=== PATIENT | female | born 1940 | race Caucasian/White ===

== ENCOUNTER → 2017-01-19 | Outpatient (CLI) | payer MEDICARE ==
--- NOTE | 2017-01-20 18:22 | Diagnostic Imaging Report ---
Bilateral screening mammogram 2D views with tomosynthesis. The current study was also evaluated with a Computer Aided Detection (CAD) system. INDICATION: Screening. No current complaints stated on the questionnaire. COMPARISON: 12/17/2015. FINDINGS: The breasts are composed of heterogeneously dense parenchyma which may decrease mammographic sensitivity. There is no mass, architectural distortion or suspicious cluster of calcification. Allowing for technique and positional differences, no suspicious change is seen. IMPRESSION: Dense breasts with no definite change. ACR BI-RADS Category 2: Benign findings. Result letter will be mailed to the patient. Note: At least 10% of breast cancer is not imaged by mammography. Dictated on workstation # [id number]
== END ==
LOC: RAD 15:37
PROVIDERS: ATTEND Family Medicine
DX: Z12.31 Encounter for screening mammogram for malignant neoplasm of breast (principal)
CPT/HCPCS: 77067

== ENCOUNTER 2017-06-14 09:58 | Inpatient (IN) | payer MEDICARE ==
[~2017-06-14] VITALS: Ht 157.5 cm; Wt 54.0 kg
[~2017-06-14 09:58] MED LIST: DULO30CA3 PO; IBAN150T PO; OXYC-197 PO; PROP20TA5 PO; PSYL3.4P5 PO; SULF1TAB35 PO
[2017-06-14 10:00] VITALS: BP 158/64
--- NOTE | 2017-06-14 11:18 | Physical Therapy Evaluation ---
PT Evaluation-General Medical Diagnosis Admission Date June 14, 2017 Medical Diagnosis: right hip fracture Onset Date: Jun 10, 2017 Therapy Diagnosis Therapy Diagnosis: impaired mobility Height/Weight Height (Feet): 5 Height (Inches): 2.00 Weight (Pounds): 120 Weight (Ounces): 0.0 Precautions Precautions/Isolations: Standard Precautions Weight Bear Status Right Lower Extremity: Right Touch Toe Bearing Left Lower Extremity: Left Full Weight Bearing Referral Physician: Juan Reason for Referral: Evaluation/Treatment Medical History Pertinent Medical History: HTN Current History Patient slipped in her garage, resulting in right proximal femur fracture. Underwent ORIF IM nail on 06/11/17. Reviewed History: Yes Social History Home: Single Level Current Living Status: Alone Entry Into Home: Stairs With Railing PT Steps Into Home: 2 Prior/Core FIM Prior Level of Function Functional [place] Measure 0=Not Assessed/NA 4=Minimal Assistance 1=Total Assistance 5=Supervision or Setup 2=Maximal Assistance 6=Modified [place] 3=Moderate Assistance 7=Complete [place] Bed Mobility: 7 Transfers (B,C,W/C) (FIM): 7 Gait: 7 Locomotion: 7 PT Evaluation-Current Subjective Patient agrees to PT. She c/o nausea and reports she is not eating and is very depressed. RN made aware. Pain Numeric Pain Scale: 5-Moderate Pain Location: Right Location Body Site: Hip Pain Description: Acute Objective Patient Orientation: Normal For Age Problem Solving: Good Attachments: Oxygen (2L), IV ROM/Strength ROM Lower Extremities right LE limited due to pain/left LE WNL Strenght Lower Extremities right knee flexion/extension 3/5; hip flexion NT; DF/PF 4/5 left knee flexion/extension 4/5; hip flexion 4/5; DF/PF 4/5 Integumentary/Posture Integumentary refer to nursing notes Bowel Incontinence: No Bladder Incontinence: No Posture normal Neuromuscular (Tone, Coordination, Reflexes) grossly intact Sensory Vision: Wears Glasses Hearing: Functional Sensation Right Lower Extremit: Intact Sensation Left Lower Extremity: Intact Transfers Functional [place] Measure 0=Not Assessed/NA 4=Minimal Assistance 1=Total Assistance 5=Supervision or Setup 2=Maximal Assistance 6=Modified [place] 3=Moderate Assistance 7=Complete IndependenceIRFPAI Quality Coding Scale 6 Independent with activity with or without an assistive device 5 Patient requires set up or clean up by helper. Patient completes activity by themselves 4 Supervision or touching assist (CGA). [place] provide cues , steadying assist 3 The helper provides less than half the effort to complete the activity 2 The helper provides more than half the effort to complete the activity 1 Dependent. The helper does all the effort to complete an activity 7 Patient refused to complete or attempt activity 9 The patient did not perform the activity before the current illness or injury 88 Not attempted due to Medical conditions or safety concerns Transfers (B, C, W/C) (FIM): 4 Scootin Rollin Roll Left to Right (QC): 4 Supine to/from Sit: 4 Sit to/from Stand: 4 Sit to Lying (QC): 4 Lying to Sitting/Side of Bed(Q: 4 Sit to Stand (QC): 4 Chair/Joi-qw-Xezwz Xfer(QC): 4 Car Transfer (QC): 4 Gait Does the Patient Walk?: Yes Mode of Locomotion: Walk Anticipated Mode of Locomotion: Walk Gait (FIM): 2 Distance (FIM): 4=112-74 ft Walk 10 feet (QC): 4 Walk 50 ft with 2 Turns(QC): 4 Walk 150 ft (QC): 88 Walking 10ft/uneven surface-QC: 4 Distance: 75' x 2 Gait Level of Assist: 4 Gait Persons Needed: 1 Gait Assistive Device: FWW Comments/Gait Description TTWB right LE with patient complying with status Stairs Stairs (FIM): 1 #of Steps: 1 Level of Assist: 4 1 Step (curb) (QC): 4 4 Steps (QC): 88 Assistive Device: Walker 12 Steps (QC): 88 Balance Sitting Static: Normal Sitting Dynamic: Normal Standing Static: Normal Standing Dynamic: Normal Picking up an Object (QC): 3 Assessment/Needs 77 y.o. female, will benefit from skilled therapy to address functional mobility and strength to ensure safe return to home at maximum LOF. Patient is currently limited by pain, TTWB right LE and depression (per patient report). Rehab Potential: Fair PT [facility] Goals [facility] Goals PT Travel Accommodations Rater Goals Time Frame: July 02, 2017 Transfers (B,C,W/C) (FIM): 6 Sit to Lying (QC): 6 Lying-Sitting on Side/Bed(QC): 6 Sit to Stand (QC): 6 Rollin Roll Left to Right (QC): 6 Chair/Qzo-vx-Kgmzx Xfer(QC): 6 Car Transfer (QC): 6 Does the Patient Walk: Yes Gait (FIM): 6 Gait distance (FIM): 3=150 ft Distance: 150' Walk 10 feet (QC): 6 Walk 10ft-Uneven Surface(QC): 6 Walk 50ft with 2 Turns (QC): 6 Walk 150 ft (QC): 6 Gait Level of Assist: 6 Gait Assistive Device: FWW Stairs (FIM): 6 # of Steps: 12 1 Step (curb) (QC): 6 4 Steps (QC): 6 12 Steps (QC): 6 Stairs Level Of Assist: 6 Picking up an Object (QC): 6 PT Plan Problem List Problem List: Activity Tolerance, Functional Strength, Gait, Bed Mobility Treatment/Plan Treatment Plan: Continue Plan of Care Treatment Plan: Bed Mobility, Concurrent Therapy, Education, Functional Activity Antione, Functional Strength, Group Therapy, Gait, Safety, Therapeutic Exercise, Transfers Treatment Duration: July 02, 2017 Frequency: At least 5 of 7 days/Wk (IRF) Estimated Hrs Per Day: 1.5 hours per day Patient and/or Family Agrees t: Yes Time/GCodes Time In: 1000 Time Out: 1020 Total Billed Treatment Time: 20 Total Billed Treatment 1 visit EVModC 20 min LISSETTE COBB PT Jun 14, 2017 11:18
--- NOTE | 2017-06-14 11:27 | Physical Therapy Daily Note ---
PT Daily Note-Current Subjective Patient reluctantly agrees to PT. Patient continues to c/o nausea and is very tearful. Pain Numeric Pain Scale: 5-Moderate Pain Location: Right Location Body Site: Hip Pain Description: Acute Mental Status Patient Orientation: Normal For Age Transfers Functional [place] Measure 0=Not Assessed/NA 4=Minimal Assistance 1=Total Assistance 5=Supervision or Setup 2=Maximal Assistance 6=Modified [place] 3=Moderate Assistance 7=Complete IndependenceIRFPAI Quality Coding Scale 6 Independent with activity with or without an assistive device 5 Patient requires set up or clean up by helper. Patient completes activity by themselves 4 Supervision or touching assist (CGA). [place] provide cues , steadying assist 3 The helper provides less than half the effort to complete the activity 2 The helper provides more than half the effort to complete the activity 1 Dependent. The helper does all the effort to complete an activity 7 Patient refused to complete or attempt activity 9 The patient did not perform the activity before the current illness or injury 88 Not attempted due to Medical conditions or safety concerns Transfers (B, C, W/C) (FIM): 4 Scootin Rollin Roll Left to Right (QC): 4 Supine to/from Sit: 4 Sit to/from Stand: 4 Sit to Lying (QC): 4 Sit to Stand (QC): 4 Chair/Bra-nv-Ocnwm Xfer(QC): 4 Bed to/from Chair: 4 Weight Bearing Right Lower Extremity: Right Touch Toe Bearing Left Lower Extremity: Left Full Weight Bearing Gait Training Does the Patient Walk?: Yes Gait (FIM): 2 Distance (FIM): 6=477-97 ft Distance: 75' x 3 Walk 10 feet (QC): 4 Walk 50 ft with 2 Turns(QC): 4 Walking 10ft/uneven surface-QC: 4 Gait Level of Assist: 4 Gait Assistive Device: FWW slow, TTWB right LE, antalgic Exercises Supine Ex: Ankle pumps, Quad Set, Glut sets, Heel Slides, Straight leg raise Supine Reps: 15 (AAROM right LE/2 sets bilaterally) Seated Therapy Exercises: Ankle pumps, Long arc quads Seated Reps: 20 (2 sets) Standin way Ex=Flex, Abd, Ext (right LE only) Standing Reps: 20 (2 sets) Assessment Patient continues to c/o nausea and is tearful. Per RN report, patient will begin medication for depression on this date. PT Order Dispatcher Goals [facility] Goals PT [facility] Goals Time Frame: July 02, 2017 Transfers (B,C,W/C) (FIM): 6 Sit to Lying (QC): 6 Lying-Sitting on Side/Bed(QC): 6 Sit to Stand (QC): 6 Rollin Roll Left to Right (QC): 6 Chair/Hlc-wp-Xoxbd Xfer(QC): 6 Car Transfer (QC): 6 Does the Patient Walk: Yes Gait (FIM): 6 Gait distance (FIM): 3=150 ft Distance: 150' Walk 10 feet (QC): 6 Walk 10ft-Uneven Surface(QC): 6 Walk 50ft with 2 Turns (QC): 6 Walk 150 ft (QC): 6 Gait Level of Assist: 6 Gait Assistive Device: FWW Stairs (FIM): 6 # of Steps: 12 1 Step (curb) (QC): 6 4 Steps (QC): 6 12 Steps (QC): 6 Stairs Level Of Assist: 6 Picking up an Object (QC): 6 PT Plan Treatment/Plan Treatment Plan: Continue Plan of Care Treatment Plan: Bed Mobility, Concurrent Therapy, Education, Functional Activity Antione, Functional Strength, Group Therapy, Gait, Safety, Therapeutic Exercise, Transfers Treatment Duration: July 02, 2017 Frequency: At least 5 of 7 days/Wk (IRF) Estimated Hrs Per Day: 1.5 hours per day Patient and/or Family Agrees t: Yes Time/GCodes Time In: 1035 Time Out: 1115 Total Billed Treatment Time: 40 Total Billed Treatment 1 visit GT 15 min EX x 2 25 min LISSETTE COBB PT Jun 14, 2017 11:27
[2017-06-14] MEDS ORDERED: PROMETHAZINE INJ 25 MG/ML (PHENERGAN) AMP IVP PRN (11:30)
--- NOTE | 2017-06-14 11:40 | ST Cognitive Linguistic Eval ---
Speech Evaluation-General Medical Diagnosis Right Hip Fracture Onset Date: Jun 10, 2017 Therapy Diagnosis Therapy Diagnosis: Cognitive Linguistic Skills WNL Precautions Precautions/Isolations: Standard Precautions Referral Referring Physician: Dr. Gunnar Martinez Reason for Referral: Evaluation/Treatment Cognitive Evaluation Medical History Pertinent Medical History: HTN Reviewed History: Yes Social History Current Living Status: Alone Speech PLF-Current Status Prior Level of Function The patient denied prior challenges with speech, language, or cognition. Subjective The patient was seated upright in a chair upon greeting. The patient greeted the clinician appropriately and was agreeable to participation in the cognitive evaluation. Language Eval: Auditory Comprehends Simple Yes/No Ques: Functional Indent/Objects Multiple Foley: Functional Ident/Pics in Multiple Foley: Functional Follows 1-Step Commands: Functional Follows Complex Directions: Functional Follows General Conversations: Functional Language Eval: Verbal Language Completes Spontaneous Greeting: Functional Produces Auto, Serial Info: Functional Imitates Simple Words/Phrases: Functional Word Finding: Functional Requests Basic Needs: Functional States Basic Personal Info: Functional Expresses Complex Ideas: Functional Cognitive Patient Orientation The patient was independently oriented to self, location, month, day of week, and month (independently). Objective Cognitive Domain Attention: WNL Memory: WNL Problem Solving: Functional Objective Impression The patient demonstrated cognitive linguistic skills within normal limits and appropriate for completion of ADL's. Communication/Social Cognition Comprehension: 6 (Glasses) Expression: 7 Social Interaction: 5 (Encouragement necessary for participation; Patient takes anti-depressant.) Problem Solvin Memory: 7 Speech Patient Assess Expression of Ideas/Wants: Expression (4) Understanding [place] Content: Understands (4) Brief Interview-Mental Status: Yes Repetition of Three Words: Three (3) Temporal Orientation: Year: Correct (3) Temporal Orientation: Month: Accurate within 5 days(2) Temporal Orientation: Day: Correct (1) Recall : Wear to say "Sock": Yes, no cue required (2) Recall : Color: Yes, no cue required (2) Recall : Bed: Yes, no cue required (2) Speech-Plan Treatment Plan Speech Therapy Treatment Plan: Discontinue ST Evaluation, only. No ST warranted. Frequency: Modified Program (IRF) (No ST warranted.) Estimated Hrs Per Day: Other (No ST warranted.) Rehab Potential: Fair Safety Risks/Education Teaching Recipient: Patient Teaching Methods: Discussion Response to Teaching: Verbalize Understanding Education Topics Provided: Results, Recommendations, Plan of Care Time Speech Therapy Time In: 10:20 Speech Therapy Time Out: 10:35 Total Billed Time: 15 Billed Treatment Time 1, HASEEB AKHTAR Jun 14, 2017 11:40
--- OUTSIDE RECORDS SUMMARY | 2017-06-14 12:46 | XMS REPORT | Continuity of Care Document ---
Author Author [facility] Organization [facility] Address Unknown Phone Unavailable Allergies Active Description Code Type Severity Reaction Onset Reported/Identified Relationship to Patient Clinical Status Yes No Allergy Information Available [id number] Drug Allergy Unknown N/A 2012 Yes Penicillins [id number] Drug Allergy Unknown N/A 07/06/2014 Medications There is no data. Problems Date Dx Coded Attending Type Code Diagnosis Diagnosed By 05/20/2012 Ot 211.3 BENIGN NEOPLASM LG BOWEL 05/20/2012 Ot 562.10 DIVERTICULOSIS COLON (W/O MENT OF HEMORR 05/20/2012 Ot V76.51 SCREEN MAL NEOP-COLON 03/01/2014 Ot 611.72 03/01/2014 Ot V76.12 03/01/2014 Ot 611.72 03/01/2014 Ot V76.12 03/01/2014 Ot V76.12 03/01/2014 Ot 348.89 03/01/2014 Ot 780.93 03/01/2014 Ot 794.09 03/01/2014 Ot 496 03/01/2014 Ot 722.52 03/01/2014 Ot 737.30 03/01/2014 Ot V72.84 03/01/2014 BILLIE CARR MD Ot V76.12 03/01/2014 EDDIE ERWIN DC Ot 722.52 03/01/2014 BILLIE CARR MD Ot V76.12 03/20/2014 Ot 611.72 03/20/2014 Ot V76.12 03/20/2014 Ot 611.72 03/20/2014 Ot V76.12 03/20/2014 Ot V76.12 03/20/2014 Ot 348.89 03/20/2014 Ot 780.93 03/20/2014 Ot 794.09 03/20/2014 Ot 496 03/20/2014 Ot 722.52 03/20/2014 Ot 737.30 03/20/2014 Ot V72.84 03/20/2014 LILLY VARGAS, BILLIE White Ot V76.12 03/20/2014 EDDIE ERWIN DC Ot 722.52 03/20/2014 LILLY VARGAS, BILLIE M Ot V76.12 03/20/2014 LILLY VARGAS, BILLIE Cindy Ot 719.45 03/23/2014 LILLY VARGAS, BILLIE White Ot 719.45 03/29/2014 ALEX VARGAS, SUSAN Cook Ot 726.2 03/29/2014 ALEX VARGAS, SUSAN Cook Ot V57.1 04/02/2014 LILLY VARGAS, BILLIE White Ot 719.45 05/17/2014 SUSAN JOHNSON MD Ot 726.2 SHOULDER REGION DIS NEC 05/17/2014 SUSAN JOHNSON MD Ot V57.1 PHYSICAL THERAPY NEC 06/20/2014 Ot 611.72 06/20/2014 Ot V76.12 06/20/2014 Ot 611.72 06/20/2014 Ot V76.12 06/20/2014 Ot V76.12 06/20/2014 Ot 348.89 06/20/2014 Ot 780.93 06/20/2014 Ot 794.09 06/20/2014 Ot 496 06/20/2014 Ot 722.52 06/20/2014 Ot 737.30 06/20/2014 Ot V72.84 06/20/2014 LILLY VARGAS, BILLIE White Ot V76.12 06/20/2014 EDDIE ERWIN DC Ot 722.52 06/20/2014 LILLY VARGAS, BILLIE White Ot V76.12 06/20/2014 LILLY VARGAS, BILLIE White Ot 719.45 07/06/2014 BELIA VARGAS, MALIKA Hamilton Ot 287.5 07/06/2014 BELIA VARGAS, MALIKA Hamilton Ot 288.50 07/06/2014 BELIA VARGAS, MALIKA Hamilton Ot 790.5 07/06/2014 BELIA VARGAS, MALIKA Hamilton Ot 287.5 07/06/2014 BELIA VARGAS, MALIKA Hamilton Ot 288.50 07/06/2014 BELIA VARGAS, MALIKA Hamilton Ot 790.5 07/06/2014 BELIA VARGAS, MALIKA Hamilton Ot 287.5 07/06/2014 BELIA VARGAS, MALIKA Hamilton Ot 288.50 07/06/2014 BELIA VARGAS, MALIKA A Ot 790.5 07/06/2014 BELIA VARGAS, MALIKA Hamilton Ot 287.5 07/06/2014 BELIA VARGAS, MALIKA Hamilton Ot 288.50 07/06/2014 BELIA VARGAS, MALIKA A Ot 790.5 07/09/2014 BELIA VARGAS, MALIKA Hamilton Ot 287.5 07/09/2014 BELIA VARGAS, MALIKA A Ot 288.50 07/09/2014 BELIA VARGAS, MALIKA Hamilton Ot 790.5 07/13/2014 KRISTIN RODRIGUEZ [employer]AREHOUSE INSULATION WORKER Ot 719.07 JOINT EFFUSION-ANKLE 07/13/2014 KRISTIN RODRIGUEZ [employer]HOUSE INSULATION WORKER Ot 729.81 SWELLING OF LIMB 07/14/2014 BELIA VARGAS, MALIKA Hamilton Ot 276.8 07/14/2014 BELIA VARGAS, MALIKA Hamilton Ot 787.03 07/14/2014 BELIA VARGAS, MALIKA Hamilton Ot 790.5 07/14/2014 BELIA VARGAS, MALIKA Hamilton Ot V01.79 07/21/2014 YAIMAEDDIE BAH DC Ot 719.45 08/02/2014 JUAN DANIEL JAQUEZ CORRESPONDENCE SECTION SUPERVISOR Ot 276.8 08/02/2014 JUAN DANIEL JAQUEZ CORRESPONDENCE SECTION SUPERVISOR Ot 790.5 08/03/2014 BELIA VARGAS, MALIKA Hamilton Ot 287.5 08/03/2014 BELIA VARGAS, MALIKA A Ot 288.50 08/03/2014 BELIA VARGAS, MALIKA A Ot 790.5 08/08/2014 BELIA VARGAS, MALIKA Hamilton Ot 287.5 08/08/2014 BELIA VARGAS, MALIKA Hamilton Ot 288.50 08/08/2014 BELIA VARGAS, MALIKA A Ot 790.5 08/10/2014 YAIMAEDDIE BAH DC Ot 719.45 08/16/2014 BELIA VARGAS, MALIKA Hamilton Ot 790.5 10/02/2014 BELIA VARGAS, MALIKA Hamilton Ot 276.8 10/02/2014 BELIA VARGAS, MALIKA Hamilton Ot 787.03 10/02/2014 BELIA VARGAS, MALIKA A Ot 790.5 10/02/2014 BELIA VARGAS, MALIKA Hamilton Ot V01.79 10/04/2014 BELIA VARGAS, MALIKA Hamilton Ot 276.8 HYPOPOTASSEMIA 10/04/2014 BELIA VARGAS, MALIKA A Ot 787.03 VOMITING ALONE 10/04/2014 MALIKA CELAYA MD Ot 790.5 ABN SERUM ENZY LEVEL NEC 10/04/2014 MALIKA CELAYA MD Ot V01.79 CONTACT OR EXPOSURE TO OTHER VIRAL DISEA 11/14/2014 JUAN DANIEL JAQUEZ CORRESPONDENCE SECTION SUPERVISOR Ot V76.12 06/20/2015 Ot V76.12 OTH SCREEN MAMMO-MALIGN NEOPLASM OF ALFONSO 06/20/2015 Ot V76.12 OTH SCREEN MAMMO-MALIGN NEOPLASM OF ALFONSO 06/20/2015 Ot 348.89 OTHER CONDITIONS OF BRAIN 06/20/2015 Ot 780.93 MEMORY LOSS 06/20/2015 Ot 794.09 ABN BOULEVARD GLASSWARE REPLACER FUNCT STUDY NEC 06/20/2015 Ot 496 CHR AIRWAY OBSTRUCT NEC 06/20/2015 Ot 722.52 LUMB/ LUMBOSAC DISC DEGEN 06/20/2015 Ot 737.30 IDIOPATHIC SCOLIOSIS 06/20/2015 Ot V72.84 EXAM PRE- OPERATIVE NOS 06/20/2015 BILLIE CARR MD Ot V76.12 OTH SCREEN MAMMO-MALIGN NEOPLASM OF ALFONSO 06/20/2015 YAIMAOLVIN WOOD, EDDIE Salinas Ot 722.52 LUMB/LUMBOSAC DISC DEGEN 06/20/2015 BILLIE CARR MD Ot V76.12 OTH SCREEN MAMMO-MALIGN NEOPLASM OF ALFONSO 06/20/2015 BILLIE CARR MD Ot 719.45 JOINT PAIN-PELVIS 06/20/2015 YAIMA WOOD, EDDIE [place]inas Ot 719.45 JOINT PAIN-PELVIS 06/20/2015 MALIKA CELAYA MD Ot 287.5 THROMBOCYTOPENIA NOS 06/20/2015 MALIKA CELAYA MD Ot 288.50 LEUKOCYTOPENIA, UNSPECIFIED 06/20/2015 MALIKA CELAYA MD Ot 790.5 ABN SERUM ENZY LEVEL NEC 06/20/2015 JUAN DANIEL JAQUEZ CORRESPONDENCE SECTION SUPERVISOR Ot 276.8 HYPOPOTASSEMIA 06/20/2015 JUAN DANIEL JAQUEZ CORRESPONDENCE SECTION SUPERVISOR Ot 790.5 ABN SERUM ENZY LEVEL NEC 06/20/2015 MALIKA CELAYA MD Ot 790.5 ABN SERUM ENZY LEVEL NEC 06/20/2015 MALIKA CELAYA MD Ot 276.8 HYPOPOTASSEMIA 06/20/2015 BELIA MD, MALIKA A Ot 787.03 VOMITING ALONE 06/20/2015 MALIKA CELAYA MD Ot 790.5 ABN SERUM ENZY LEVEL NEC 06/20/2015 MALIKA CELAYA MD Ot V01.79 CONTACT OR EXPOSURE TO OTHER VIRAL DISEA 06/20/2015 JUAN DANIEL JAQUEZ CORRESPONDENCE SECTION SUPERVISOR Ot V76.12 OTH SCREEN MAMMO-MALIGN NEOPLASM OF ALFONSO 07/11/2015 LAYLA VARNER W[employer]HOUSE INSULATION WORKER Ot R68.84 JAW PAIN 07/23/2015 LAYLA VARNER W[employer]HOUSE INSULATION WORKER Ot R68.84 JAW PAIN 12/17/2015 MALIKA CELAYA MD A Ot Z12.31 ENCNTR SCREEN MAMMOGRAM FOR MALIGNANT NE 12/18/2015 MALIKA CELAYA MD Ot Z12.31 ENCNTR SCREEN MAMMOGRAM FOR MALIGNANT NE 12/26/2015 MALIKA CELAYA MD Ot Z12.31 ENCNTR SCREEN MAMMOGRAM FOR MALIGNANT NE 01/19/2016 MALIKA CELAYA MD Ot 287.5 THROMBOCYTOPENIA NOS 01/19/2016 MALKIA CELAYA MD Ot 288.50 LEUKOCYTOPENIA, UNSPECIFIED 01/19/2016 MALIKA CELAYA MD Ot 790.5 ABN SERUM ENZY LEVEL NEC 01/12/2017 MALIKA CELAYA MD Ot Z12.31 ENCNTR SCREEN MAMMOGRAM FOR MALIGNANT NE 01/20/2017 MALIKA CELAYA MD Ot Z12.31 ENCNTR SCREEN MAMMOGRAM FOR MALIGNANT NE 02/09/2017 MALIKA CELAYA MD Ot Z12.31 ENCNTR SCREEN MAMMOGRAM FOR MALIGNANT NE 06/10/2017 MALIKA CELAYA MD Ot Z12.31 ENCNTR SCREEN MAMMOGRAM FOR MALIGNANT NE 06/10/2017 MALIKA CELAYA MD Ot Z12.31 ENCNTR SCREEN MAMMOGRAM FOR MALIGNANT NE Procedures There is no data. Results Test Result Range Complete blood count (CBC) with automated white blood cell (WBC) differential - 06/10/17 19:01 Blood leukocytes automated count (number/volume) 7.1 10*3/uL 4.3-11.0 Blood erythrocytes automated count (number/volume) 3.84 10*6/uL 4.35-5.85 Venous blood hemoglobin measurement (mass/volume) 11.8 g/dL 11.5-16.0 Blood hematocrit (volume fraction) 34 % 35-52 Automated erythrocyte mean corpuscular volume 89 [foz_us] 80-99 Automated erythrocyte mean corpuscular hemoglobin (mass per erythrocyte) 31 pg 25-34 Automated erythrocyte mean corpuscular hemoglobin concentration measurement ( mass/volume) 35 g/dL 32-36 Automated erythrocyte distribution width ratio 12.8 % 10.0-14.5 Automated blood platelet count (count/volume) 196 10*3/uL 130-400 Automated blood platelet mean volume measurement 10.8 [foz_us] 7.4-10.4 Automated blood neutrophils/100 leukocytes 77 % 42-75 Automated blood lymphocytes/100 leukocytes 14 % 12-44 Blood monocytes/100 leukocytes 7 % 0-12 Automated blood eosinophils/100 leukocytes 2 % 0-10 Automated blood basophils/100 leukocytes 0 % 0-10 Blood neutrophils automated count (number/volume) 5.5 10*3 1.8-7.8 Blood lymphocytes automated count (number/volume) 1.0 10*3 1.0-4.0 Blood monocytes automated count (number/volume) 0.5 10*3 0.0-1.0 Automated eosinophil count 0.1 10*3/uL 0.0-0.3 Automated blood basophil count (count/volume) 0.0 10*3/uL 0.0-0.1 PT panel in platelet poor plasma by coagulation assay - 06/10/17 19:01 Prothrombin time (PT) in platelet poor plasma by coagulation assay 12.9 s 12.2-14.7 INR in platelet poor plasma or blood by coagulation assay 1.0 0.8-1.4 Activated partial thromboplastin time (aPTT) in platelet poor plasma bycoagulation assay - 06/10/17 19:01 Activated partial thromboplastin time (aPTT) in platelet poor plasma bycoagulation assay 30 s 24-35 Comprehensive metabolic panel - 06/10/17 19:01 Serum or plasma sodium measurement (moles/volume) 139 mmol/L 135-145 Serum or plasma potassium measurement (moles/volume) 3.8 mmol/L 3.6-5.0 Serum or plasma chloride measurement (moles/volume) 105 mmol/L 98-107 Carbon dioxide 25 mmol/L 21-32 Serum or plasma anion gap determination (moles/volume) 9 mmol/L 5-14 Serum or plasma urea nitrogen measurement (mass/volume) 27 mg/dL 7-18 Serum or plasma creatinine measurement (mass/volume) 0.82 mg/dL 0.60-1.30 Serum or plasma urea nitrogen/creatinine mass ratio 33 NRG Serum or plasma creatinine measurement with calculation of estimated glomerular filtration rate > NRG Serum or plasma glucose measurement (mass/volume) 110 mg/dL 70-105 Serum or plasma calcium measurement (mass/volume) 9.5 mg/dL 8.5-10.1 Serum or plasma total bilirubin measurement (mass/volume) 0.3 mg/dL 0.1-1.0 Serum or plasma alkaline phosphatase measurement (enzymatic activity/volume) 43 U/L 40-136 Serum or plasma aspartate aminotransferase measurement (enzymatic activity/ volume) 26 U/L 5-34 Serum or plasma alanine aminotransferase measurement (enzymatic activity/volume ) 19 U/L 0-55 Serum or plasma protein measurement (mass/volume) 6.6 g/dL 6.4-8.2 Serum or plasma albumin measurement (mass/volume) 4.1 g/dL 3.2-4.5 Complete urinalysis with reflex to culture - 06/10/17 20:12 Urine color determination YELLOW NRG Urine clarity determination CLEAR NRG Urine pH measurement by test strip 5 5-9 Specific gravity of urine by test strip 1.025 1.016- 1.022 Urine protein assay by test strip, semi-quantitative NEGATIVE NEGATIVE Urine glucose detection by automated test strip NEGATIVE NEGATIVE Erythrocytes detection in urine sediment by light microscopy 1+ NEGATIVE Urine ketones detection by automated test strip 1+ NEGATIVE Urine nitrite detection by test strip POSITIVE NEGATIVE Urine total bilirubin detection by test strip NEGATIVE NEGATIVE Urine urobilinogen measurement by automated test strip (mass/volume) NORMAL NORMAL Urine leukocyte esterase detection by dipstick 1+ NEGATIVE Automated urine sediment erythrocyte count by microscopy (number/high power field) [HPF] NRG Automated urine sediment leukocyte count by microscopy (number/high power field ) [HPF] NRG Bacteria detection in urine sediment by light microscopy MODERATE NRG Crystals detection in urine sediment by light microscopy NONE NRG Casts detection in urine sediment by light microscopy NONE NRG Mucus detection in urine sediment by light microscopy NEGATIVE NRG Complete urinalysis with reflex to culture YES NRG Bacterial urine culture - 06/10/17 20:12 Bacterial urine culture [id number] NRG COLONY COUNT >100,000/ML NRG FTX;REPORTABLE SENSITIVITY REPORTED 06/11 15:20 NRG Bacterial susceptibility panel - 06/10/17 20:12 Gentamicin susceptibility test by minimum inhibitory concentration < = NRG Trimethoprim/sulfamethoxazole susceptibility test by minimum inhibitoryconcentration S NRG Ampicillin susceptibility test by minimum inhibitory concentration 4 NRG Tobramycin susceptibility test by minimum inhibitory concentration < = NRG Cefazolin susceptibility test by minimum inhibitory concentration < = NRG Ceftriaxone susceptibility test by minimum inhibitory concentration <= NRG Ampicillin/sulbactam susceptibility test by minimum inhibitory concentration S NRG Piperacillin/tazobactam susceptibility test by minimum inhibitory concentration S NRG Ciprofloxacin susceptibility test by minimum inhibitory concentration <= NRG Meropenem susceptibility test by minimum inhibitory concentration < = NRG Nitrofurantoin susceptibility test by minimum inhibitory concentration <= NRG Aztreonam susceptibility test by minimum inhibitory concentration < = NRG Extended spectrum beta lactamase (ESBL) producing bacteria susceptibility test by minimum inhibitory concentration - NRG Blood type T Indirect antibody screen panel - 06/10/17 21:03 ABO+Rh group AP NRG Transfusion band number [id number] NRG Blood group antibody screen POSITIVE NRG Blood group antibodies identified - 06/10/17 21:03 Blood group antibodies identified K NRG Methicillin resistant Staphylococcus aureus (MRSA) screening culture - 04:15 Methicillin resistant Staphylococcus aureus (MRSA) screening culture NEG NRG Automated blood complete blood count (hemogram) panel - 06/12/17 06:11 Blood leukocytes automated count (number/volume) 9.6 10*3/uL 4.3-11.0 Blood erythrocytes automated count (number/volume) 3.17 10*6/uL 4.35-5.85 Venous blood hemoglobin measurement (mass/volume) 9.7 g/dL 11.5-16.0 Blood hematocrit (volume fraction) 29 % 35-52 Automated erythrocyte mean corpuscular volume 93 [foz_us] 80-99 Automated erythrocyte mean corpuscular hemoglobin (mass per erythrocyte) 31 pg 25-34 Automated erythrocyte mean corpuscular hemoglobin concentration measurement ( mass/volume) 33 g/dL 32-36 Automated erythrocyte distribution width ratio 12.8 % 10.0-14.5 Automated blood platelet count (count/volume) 148 10*3/uL 130-400 Automated blood platelet mean volume measurement 11.1 [foz_us] 7.4-10.4 Comprehensive metabolic panel - 06/12/17 06:11 Serum or plasma sodium measurement (moles/volume) 138 mmol/L 135-145 Serum or plasma potassium measurement (moles/volume) 3.7 mmol/L 3.6-5.0 Serum or plasma chloride measurement (moles/volume) 104 mmol/L 98-107 Carbon dioxide 28 mmol/L 21-32 Serum or plasma anion gap determination (moles/volume) 6 mmol/L 5-14 Serum or plasma urea nitrogen measurement (mass/volume) 10 mg/dL 7-18 Serum or plasma creatinine measurement (mass/volume) 0.66 mg/dL 0.60-1.30 Serum or plasma urea nitrogen/creatinine mass ratio 15 NRG Serum or plasma creatinine measurement with calculation of estimated glomerular filtration rate > NRG Serum or plasma glucose measurement (mass/volume) 113 mg/dL 70-105 Serum or plasma calcium measurement (mass/volume) 8.5 mg/dL 8.5-10.1 Serum or plasma total bilirubin measurement (mass/volume) 0.5 mg/dL 0.1-1.0 Serum or plasma alkaline phosphatase measurement (enzymatic activity/volume) 40 U/L 40-136 Serum or plasma aspartate aminotransferase measurement (enzymatic activity/ volume) 23 U/L 5-34 Serum or plasma alanine aminotransferase measurement (enzymatic activity/volume ) 14 U/L 0-55 Serum or plasma protein measurement (mass/volume) 5.6 g/dL 6.4-8.2 Serum or plasma albumin measurement (mass/volume) 3.4 g/dL 3.2-4.5 Automated blood complete blood count (hemogram) panel - 06/13/17 05:19 Blood leukocytes automated count (number/volume) 6.7 10*3/uL 4.3-11.0 Blood erythrocytes automated count (number/volume) 2.85 10*6/uL 4.35-5.85 Venous blood hemoglobin measurement (mass/volume) 9.0 g/dL 11.5-16.0 Blood hematocrit (volume fraction) 28 % 35-52 Automated erythrocyte mean corpuscular volume 97 [foz_us] 80-99 Automated erythrocyte mean corpuscular hemoglobin (mass per erythrocyte) 32 pg 25-34 Automated erythrocyte mean corpuscular hemoglobin concentration measurement ( mass/volume) 33 g/dL 32-36 Automated erythrocyte distribution width ratio 13.0 % 10.0-14.5 Automated blood platelet count (count/volume) 114 10*3/uL 130-400 Automated blood platelet mean volume measurement 10.9 [foz_us] 7.4-10.4 Automated blood complete blood count (hemogram) panel - 06/14/17 05:40 Blood leukocytes automated count (number/volume) 5.9 10*3/uL 4.3-11.0 Blood erythrocytes automated count (number/volume) 2.89 10*6/uL 4.35-5.85 Venous blood hemoglobin measurement (mass/volume) 8.9 g/dL 11.5-16.0 Blood hematocrit (volume fraction) 27 % 35-52 Automated erythrocyte mean corpuscular volume 94 [foz_us] 80-99 Automated erythrocyte mean corpuscular hemoglobin (mass per erythrocyte) 31 pg 25-34 Automated erythrocyte mean corpuscular hemoglobin concentration measurement ( mass/volume) 33 g/dL 32-36 Automated erythrocyte distribution width ratio 12.6 % 10.0-14.5 Automated blood platelet count (count/volume) 142 10*3/uL 130-400 Automated blood platelet mean volume measurement 10.9 [foz_us] 7.4-10.4 Comprehensive metabolic panel - 06/14/17 05:40 Serum or plasma sodium measurement (moles/volume) 138 mmol/L 135-145 Serum or plasma potassium measurement (moles/volume) 3.4 mmol/L 3.6-5.0 Serum or plasma chloride measurement (moles/volume) 101 mmol/L 98-107 Carbon dioxide 29 mmol/L 21-32 Serum or plasma anion gap determination (moles/volume) 8 mmol/L 5-14 Serum or plasma urea nitrogen measurement (mass/volume) 11 mg/dL 7-18 Serum or plasma creatinine measurement (mass/volume) 0.63 mg/dL 0.60-1.30 Serum or plasma urea nitrogen/creatinine mass ratio 17 NRG Serum or plasma creatinine measurement with calculation of estimated glomerular filtration rate > NRG Serum or plasma glucose measurement (mass/volume) 91 mg/dL 70-105 Serum or plasma calcium measurement (mass/volume) 8.2 mg/dL 8.5-10.1 Serum or plasma total bilirubin measurement (mass/volume) 0.6 mg/dL 0.1-1.0 Serum or plasma alkaline phosphatase measurement (enzymatic activity/volume) 45 U/L 40-136 Serum or plasma aspartate aminotransferase measurement (enzymatic activity/ volume) 20 U/L 5-34 Serum or plasma alanine aminotransferase measurement (enzymatic activity/volume ) 13 U/L 0-55 Serum or plasma protein measurement (mass/volume) 5.3 g/dL 6.4-8.2 Serum or plasma albumin measurement (mass/volume) 3.1 g/dL 3.2-4.5 Encounters ACCT No. Visit Date/Time Discharge Status Pt. Type Provider Facility Loc./Unit Complaint [id number] 01/19/2017 15:37:00 01/19/2017 23:59:59 CLS Outpatient MALIKA CELAYA MD [facility] RAD SCREENING [id number] 12/17/2015 14:24:00 12/17/2015 23:59:59 CLS Outpatient MALIKA CELAYA MD [facility] RAD SCREENING [id number] 06/20/2015 18:02:00 06/20/2015 23:59:59 CLS Outpatient LAYLA VARNER APRN [facility] RAD [id number] 10/25/2014 15:35:00 10/25/2014 23:59:59 CLS Outpatient JUAN DANIEL JAQUEZ [facility] RAD [id number] 10/05/2014 00:11:00 10/05/2014 23:59:59 CLS Preadmit MALIKA CELAYA MD [facility] SURG RCR [id number] 07/06/2014 17:48:00 10/04/2014 00:01:00 DIS Outpatient MALIKA CELAYA MD [facility] SURG RCR [id number] 07/13/2014 16:55:00 07/13/2014 19:23:00 DIS Emergency KRISTIN RODRIGUEZ APRN [facility] ER [id number] 07/12/2014 16:40:00 07/12/2014 23:59:59 CLS Outpatient MALIKA CELAYA MD [facility] LAB [id number] 07/09/2014 08:29:00 07/09/2014 23:59:59 CLS Outpatient JUAN DANIEL JAQUEZ [facility] LAB [id number] 07/06/2014 08:45:00 07/06/2014 23:59:59 CLS Outpatient MALIKA CELAYA MD [facility] LAB DECREASED WBC PLATELETS, ELEVATED LIVER ENZYMES [id number] 06/20/2014 16:29:00 06/20/2014 23:59:59 CLS Outpatient EDDIE ERWIN DC [facility] RAD [id number] 05/09/2014 16:30:00 05/17/2014 09:51:00 DIS Outpatient SUSAN JOHNSON MD [facility] REHAB [id number] 03/01/2014 13:44:00 03/01/2014 23:59:59 CLS Outpatient BILLIE CARR MD [facility] RAD [id number] 08/29/2013 15:36:00 08/29/2013 23:59:59 CLS Outpatient BILLIE CARR MD [facility] RAD [id number] 06/14/2013 17:12:00 06/14/2013 23:59:59 CLS Outpatient EDDIE ERWIN DC [facility] RAD [id number] 08/15/2012 15:31:00 08/15/2012 23:59:59 CLS Outpatient BILLIE CARR MD [facility] RAD [id number] 06/14/2017 11:28:00 Document Registration [id number] 06/10/2017 20:53:00 ACT Inpatient MALIKA CELAYA MD [facility] 4TH RIGHT HIP FX, UTI [id number] 05/20/2012 08:39:00 Document Registration [id number] 05/18/2012 08:02:00 Document Registration [id number] 05/05/2012 16:17:00 Document Registration [id number] 01/21/2012 16:12:00 Document Registration [id number] 10/22/2011 14:49:00 Document Registration [id number] 10/21/2011 10:10:00 Document Registration [id number] 07/30/2011 11:13:00 Document Registration [id number] 06/27/2010 11:01:00 Document Registration [id number] 06/12/2009 10:43:00 Document Registration [id number] 06/06/2009 11:08:00 Document Registration
[2017-06-14] MEDS ORDERED: CATHETER FLUSH 10 ML SYR IV PRN (13:30)
--- NOTE | 2017-06-14 13:31 | Physical Therapy Daily Note ---
PT Daily Note-Current Subjective Patient agrees to PT. Pain Numeric Pain Scale: 0-No Pain Location: No Pain Reported Mental Status Patient Orientation: Normal For Age Attachments: Oxygen Transfers Functional Hope Measure 0=Not Assessed/NA 4=Minimal Assistance 1=Total Assistance 5=Supervision or Setup 2=Maximal Assistance 6=Modified Hope 3=Moderate Assistance 7=Complete IndependenceIRFPAI Quality Coding Scale 6 Independent with activity with or without an assistive device 5 Patient requires set up or clean up by helper. Patient completes activity by themselves 4 Supervision or touching assist (CGA). [place] provide cues , steadying assist 3 The helper provides less than half the effort to complete the activity 2 The helper provides more than half the effort to complete the activity 1 Dependent. The helper does all the effort to complete an activity 7 Patient refused to complete or attempt activity 9 The patient did not perform the activity before the current illness or injury 88 Not attempted due to Medical conditions or safety concerns Transfers (B, C, W/C) (FIM): 4 Scootin Sit to/from Stand: 4 Sit to Stand (QC): 4 Weight Bearing Right Lower Extremity: Right Touch Toe Bearing Left Lower Extremity: Left Full Weight Bearing Gait Training Does the Patient Walk?: Yes Gait (FIM): 2 Distance (FIM): 8=653-45 ft Distance: 100' x 2 Walk 10 feet (QC): 4 Walk 50 ft with 2 Turns(QC): 4 Gait Level of Assist: 4 Gait Assistive Device: FWW slow, steady gait sequence Exercises Seated Therapy Exercises: Ankle pumps, Long arc quads Seated Reps: 20 NuStep Minutes: 10 NuStep Workload: 3 Assessment Patient in better spirits this p.m. PT to increase activity as tolerated by patient. PT Halfway Goals Halfway Goals PT Halfway Goals Time Frame: July 02, 2017 Transfers (B,C,W/C) (FIM): 6 Sit to Lying (QC): 6 Lying-Sitting on Side/Bed(QC): 6 Sit to Stand (QC): 6 Rollin Roll Left to Right (QC): 6 Chair/Uaw-xu-Oimne Xfer(QC): 6 Car Transfer (QC): 6 Does the Patient Walk: Yes Gait (FIM): 6 Gait distance (FIM): 3=150 ft Distance: 150' Walk 10 feet (QC): 6 Walk 10ft-Uneven Surface(QC): 6 Walk 50ft with 2 Turns (QC): 6 Walk 150 ft (QC): 6 Gait Level of Assist: 6 Gait Assistive Device: FWW Stairs (FIM): 6 # of Steps: 12 1 Step (curb) (QC): 6 4 Steps (QC): 6 12 Steps (QC): 6 Stairs Level Of Assist: 6 Picking up an Object (QC): 6 PT Plan Treatment/Plan Treatment Plan: Continue Plan of Care Treatment Plan: Bed Mobility, Concurrent Therapy, Education, Functional Activity Antione, Functional Strength, Group Therapy, Gait, Safety, Therapeutic Exercise, Transfers Treatment Duration: July 02, 2017 Frequency: At least 5 of 7 days/Wk (IRF) Estimated Hrs Per Day: 1.5 hours per day Patient and/or Family Agrees t: Yes Time/GCodes Time In: 1240 Time Out: 1310 Total Billed Treatment Time: 30 Total Billed Treatment 1 visit EX 17 min GT13 min LISSETTE COBB PT Jun 14, 2017 13:31
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
[2017-06-14] MEDS: ONDANSETRON 4 MG/2 ML (SDV) Z0FRAN IVP PRN ×2 (14:14→21:52)
--- NOTE | 2017-06-14 14:21 | Occupational Ther Daily Note ---
OT Current Status-Daily Note Subjective Pt finishing up with PT. Pt agreed to therapy. Pt c/o pain and nausea, reported to nrsg. Mental Status/Objective Patient Orientation: Person, Place, Time, Situation Functional [place] Measure 0=Not Assessed/NA 4=Minimal Assistance 1=Total Assistance 5=Supervision or Setup 2=Maximal Assistance 6=Modified [place] 3=Moderate Assistance 7=Complete [place] ADL-Treatment Functional [place] Measure 0=Not Assessed/NA 4=Minimal Assistance 1=Total Assistance 5=Supervision or Setup 2=Maximal Assistance 6=Modified [place] 3=Moderate Assistance 7=Complete IndependenceIRFPAI Quality Coding Scale 6 Independent with activity with or without an assistive device 5 Patient requires set up or clean up by helper. Patient completes activity by themselves 4 Supervision or touching assist (CGA). [place] provide cues , steadying assist 3 The helper provides less than half the effort to complete the activity 2 The helper provides more than half the effort to complete the activity 1 Dependent. The helper does all the effort to complete an activity 7 Patient refused to complete or attempt activity 9 The patient did not perform the activity before the current illness or injury 88 Not attempted due to Medical conditions or safety concerns Grooming (FIM): 5 (Standing at sink with FWW, pt was able to complete grooming with SBA.) Oral Hygiene (QC): 4 Bathing (FIM): 4 (Using shower bench, grabbar and hand held shower pt was able to wash all areas except lower legs.) Bathing Location: L Arm, R Arm, L Upper Leg, R Upper Leg, Chest, Abdomen, Buttocks, Perineal Area Shower/Bathe Self (QC): 4 Upper Body (FIM): 5 (After set up, pt able to complete upper body dressing.) Upper Body Dressing (QC): 5 Lower Body Dressing (FIM): 3 (After set up, pt required mod A for lower body dressing. Pt able to don/doff pants with SBA in standing. Assist to don/doff socks and shoes.) Lower Body Dressing (QC): 3 On/Off Footwear (QC): 2 Toileting (FIM): 5 (Per PT report. Pt is SBA for toileting using FWW and grabbars. Pt stated that she had rails/BSC at home.) Toileting Hygiene (QC): 4 Transfers (B, C, W/C) (FIM): 5 (SBA using FWW.) Toilet/Commode Transfer (FIM): 5 (Per PT report. Pt is SBA using FWW. PT put BSC over toilet, pt stated that she had rails/BSC over toilet at home.) Toilet Transfer (QC): 4 Shower Transfer(FIM): 4 (Using shower bench, grabbar and FWW pt is able to complete shower transfer. Pt stated that she typically takes a bath at home. Steps into tub, no grabbars.) Sock aide and dressing stick given to pt. PEREZ educated pt on equipment, pt stated that she had used them before on a previous L partial hip replacement. Pt verbalized understanding. Other Treatment Pt given light resistance theraband and was shown 3 exercises to complete. Pt c /o nausea and pain, declined completing exercises. After therapy, pt lying in bed with call light/phone in reach. All needs met in room. Education OT Patient Education: Exercise program, Modified ADL techniques, Rehab process , Transfer techniques, Use of adapted equipment Teaching Recipient: Patient Teaching Methods: Demonstration, Discussion Response to Teaching: Verbalize Understanding, Reinforcement Needed OT Short Term Goals Short Term Goals Time Frame: Jun 21, 2017 Toileting(FIM): 5 Toilet/Commode Transfer(FIM): 5 Additional Short Term Goals: 1-Demonstrate ADL Tasks, 2-Verbalize Understanding , 3-ImproveStrength/Antione 1=Demonstrate adherence to instructed precautions during ADL tasks. 2=Patient will verbalize/demonstrate understanding of assistive devices/ modifications for ADL. 3=Patient will improve strength/tolerance for activity to enable patient to perform ADL's. OT Retirement Goals [employer] Goals Time Frame: July 05, 2017 Eating (FIM): 7 Eating (QC): 6 Groomin Oral Hygiene (QC): 6 Bathing(FIM): 6 Shower/Bathe Self (QC): 6 Upper Body Dressing(FIM): 6 Upper Body Dressing (QC): 6 Lower Body Dressing(FIM): 6 Lower Body Dressing (QC): 6 On/Off Footwear (QC): 6 Toileting(FIM): 6 Toileting Hygiene (QC): 6 Toilet/Commode Transfer(FIM): 6 Toilet/Commode Transfer (QC): 6 Tub Transfer(FIM): 6 (Or shower) Shower Transfer(FIM): 6 (Or tub) Additional Goals: 1-Demonstrate ADL Tasks, 2-Verbalize Understanding, 3- ImproveStrength/Antione 1=Demonstrate adherence to instructed precautions during ADL tasks. 2=Patient will verbalize/demonstrate understanding of assistive devices/ modifications for ADL. 3=Patient will improve strength/tolerance for activity to enable patient to perform ADL's. OT Education/Plan Problem List/Assessment Pt would benefit from skilled OT to increase her independence in basic self care to allow her to safely be discharged to her home Discharge Recommendations Plan/Recommendations: Continue POC Treatment Plan/Plan of Care Patient would benefit from OT for education, treatment and training to promote independence in ADL's, mobility, safety and/or upper extremity function for ADL' s. Plan of Care: ADL Retraining, Functional Mobility, Group Exercise/Act as Ind ( education, exercise, functional activities, socialization, activity tolerance), UE Funct Exercise/Act, UE Neuromus Re-Ed/Coord Treatment Duration: July 05, 2017 Frequency: At least 5 of 7 days/Wk (IRF) Estimated Hrs Per Day: 1.5 hours per day Agreement: Yes Rehab Potential: Fair Time/GCodes Start Time: 13:10 Stop Time: 14:10 Total Time Billed (hr/min): 60 Billed Treatment Time 1 visit-ADL 3 (50 min) EX 1 (10 min) RED LUCERO Jun 14, 2017 14:21
[2017-06-14] MEDS: DULoxetine 30 MG (CYMBALTA) CAP PO SCH (14:30)
[2017-06-14] MEDS: CATHETER FLUSH 10 ML SYR IV SCH ×2 (14:31→21:25)
[2017-06-14] MEDS: LACTOBACILLUS Acidoph/Bulgar (LACTINEX/FLORANEX) TAB PO SCH (16:11)
[2017-06-14] MEDS: TRIM/SULFAMETH 160/800 (SEPTRA DS) TAB PO SCH (16:46)
[2017-06-14 17:19] VITALS: BP 141/63
[2017-06-14] MEDS: ACETAMINOPHEN 325 MG TABLET/CAPLET (TYLENOL) PO PRN (18:52)
--- NOTE | 2017-06-14 19:19 | PM&R Post Admission Assessment ---
Post Admission Physician Asses Date seen by provider: Jun 14, 2017 Time seen by provider: 19:00 Admisison Dx: (1) Intertrochanteric fracture of right femur Status: Acute The preadmission screen agrees with the post admission assessment that the patient is a good candidate for inpatient rehabilitation. The patient will have a comprehensive program of inpatient rehabilitation with a goal of maximizing level of functional independence prior to discharge home with [facility]. The patient will have PT/OT ninety minutes per day, each discipline , five days a week for 14 days for gait, strengthening, conditioning, balance, ADLs, any patient/family/caregiver training as necessary. Speech therapy to do cognitive assessment and treat as indicated. Rehabilitation nursing to assist with bowel, bladder, skin, wound care, medication administration, pain management. Import/Export Specialist to assist with discharge planning, community reentry. SCD's and Lovenox Sub CUT for DVT prophylaxis. She appears to be well motivated to participate in three hours of therapy a day. She should be able to tolerate three hours of therapy a day from a medical and surgical standpoint. She should benefit from the three hours of therapy a day. She has a reasonable discharge plan, reasonable discharge rehabilitation goals and a supportive family. She has various comorbidities that need to be closely monitored with medications and treatments adjusted on a daily basis as needed. These include: UTI HTN Depression Barriers to discharge for this patient who had been independent prior to this are for her to be modified independent to supervision for ADLs and mobility skills at the W/C level of function due to TTWB RLE prior to discharge home with [facility], so as to lessen the burden of the caregivers. Risks for this patient include: 1. Fall 2. Fracture 3. DVT 4. Pulmonary embolism 5. Wound infection 6. Skin breakdown 7. Contractures 8. Poorly controlled pain 9. Urinary retention 10. Recurrent UTI 11. Respiratory infection 12. Aspiration 13. Poorly controlled HTN Estimated Length of Stay: 14 days Prognosis: Rehab prognosis appears good for goal of discharge home with [facility] modified independent to supervision for ADLs and mobility skills. at the W/C level of function due to the TTWB restriction RLE [facility] CODE 08.11 Etiologic DX Comminuted intertrochanteric fracture of the Rt HIP General: Alert, Oriented X3, Cooperative, No Acute Distress HEENT: Atraumatic, PERRLA, EOMI, Mucous Memb Moist/[place] Neck: Supple, No JVD Lungs: Clear to Auscultation Heart: Regular Rate Abdomen: Normal Bowel Sounds, Soft, No Tenderness Extremities: No Edema Neuro: Other (Strength impaired at rt hip due to recent fracture and repair) TARIQ HYDE MD Jun 14, 2017 19:19
--- NOTE | 2017-06-14 19:39 | HISTORY AND PHYSICAL ---
DATE OF SERVICE: 06/14/2017 CHIEF COMPLAINT: Difficulty walking. HISTORY OF PRESENT ILLNESS: The patient is a 77-year-old female, who fell at home with resulting intertrochanteric fracture of the right hip. She had a right hip ORIF at [facility]. Therapies began. She was felt to be appropriate for inpatient rehabilitation unit. She had been independent prior to this. She does have a prior history of fall with left hip fracture, status post repair, but did not always use her walker. She is single and retired from [employer]. PCP is Dr. Oleary. Currently, she requires assistance for ADLs and mobility skills.She is min assist for transfers and gait with Walker She is set up for eating and grooming Min assist for Upper body dressing and mod assist for lower body dressing PAST MEDICAL HISTORY: Falls, hypertension, osteoporosis, IBS without diarrhea, depression, osteoarthritis, E. coli, UTI. PAST SURGICAL HISTORY: Left hip repair as per above. ALLERGIES: PENICILLIN. FAMILY HISTORY: Noncontributory. SOCIAL HISTORY: Essentially as per above. REVIEW OF SYSTEMS: A 10 point review of systems significant for falls, right hip pain. MEDICATIONS: 1. Lovenox 40 mg subcutaneously daily for DVT prophylaxis. 2. Pepcid 20 mg p.o. daily. 3. Metamucil 5.8 grams p.o. b.i.d. 4. Bactrim-DS 1 tablet p.o. b.i.d. with meals. 5. Lactinex one tablet p.o. a.c. 6. Percocet generic 5/325 one to two tablet p.o. q.4 hours p.r.n. moderate to severe pain. 7. Propranolol 20 mg p.o. q.6 hours p.r.n. tachycardia. 8. Tylenol 650 mg p.o. q.4 hours p.r.n. mild pain or fever. 9. Zofran 4 mg q.4 hours p.r.n. nausea and vomiting. 10. Cymbalta 30 mg p.o. daily. PHYSICAL EXAMINATION: GENERAL: Significant for a thin female appearing her stated age, lying in bed in no acute distress. She is concerned about her heart racing, it is not currently racing. She is reassured. VITAL SIGNS: She is afebrile, pulse is 97, respirations 18, blood pressure 141/63, O2 sat 98% on room air. HEENT: Vision, speech, hearing grossly intact. No oral lesion is noted. NECK: Supple without mass. HEART: Regular rhythm. CHEST: Clear. ABDOMEN: Soft, nontender, bowel sounds present. EXTREMITIES: No limb edema. No calf tenderness. MUSCULOSKELETAL: The patient has functional active range of motion and strength in both upper limbs. NEUROLOGIC: Strength, right knee flexion and extension 3/5, hip flexion not tested. Dorsiflexion 4/5. Left knee flexion and extension 4/5, hip flexion 4/5, dorsiflexion 4/5. Sensation is grossly intact to touch. Cognition intact. IMPRESSION: 1. Ambulatory dysfunction secondary to fall with resulting right intertrochanteric fracture of the right hip, status post left hip open reduction and internal fixation. Toe touch weightbearing, right lower extremity. 2. Urinary tract infection, under treatment. 3. Depression, on medication. 4. Hypertension, controlled with medication. 5. Deep vein thrombosis prophylaxis, on Lovenox subcutaneously. 6.DNR status PLAN: The patient will have a comprehensive program of inpatient rehabilitation with the goal of maximizing the level of functional independence prior to discharge home with home health care. The patient will have PT, OT 90 minutes per day, 5 days a week for 14 days. Please see post-admission physician evaluation, which is a separate document for details of plan of care. Speech therapy to do cognitive assessment and treat as indicated. Rehabilitation nursing assist with bowel, bladder, skin care, medication administration, pain management. career services representative to assist with discharge planning, community reentry. Follow up with Dr. Oleary and Dr. Agrawal as per their schedule. ESTIMATED LENGTH OF STAY: 14 days. PROGNOSIS: Rehab prognosis appears good for goal of discharging home with home health care, modified independent to supervision for ADLs and mobility skills. We will need to focus on the wheelchair level of function due to her touchdown weightbearing status, right lower extremity. DIET: Regular. CODE STATUS: DNR. Job ID: [id number] DocumentID: [id number] Dictated Date: 06/14/2017 19:12:07 Parking Lot Supervisor Date: 06/14/2017 19:38:50 Dictated By: TARIQ HYDE MD [facility]
[2017-06-14] MEDS: PSYLLIUM POWDER (METAMUCIL) 5.8 GM PACKET PO SCH (21:25)
[2017-06-14] MEDS ORDERED: ONDANSETRON 4 MG (ZOFRAN) ORAL DISSOLVE TAB PO PRN (22:00)
[2017-06-14] MEDS ORDERED: PROMETHAZINE 25 MG (PHENERGAN) TAB PO PRN (22:00)
[2017-06-14] MEDS ORDERED: ONDANSETRON 4 MG (ZOFRAN) ORAL DISSOLVE TAB ONE (22:01)
[2017-06-15 05:06] VITALS: BP 128/62
[2017-06-15] MEDS: FAMOTIDINE 20 MG (PEPCID) TABLET PO SCH (06:53)
[2017-06-15] MEDS: PROPRANOLOL 20 MG (INDERAL) TABLET PO PRN ×2 (06:53→20:40)
[2017-06-15] MEDS: TRIM/SULFAMETH 160/800 (SEPTRA DS) TAB PO SCH (06:54)
[2017-06-15] MEDS: LACTOBACILLUS Acidoph/Bulgar (LACTINEX/FLORANEX) TAB PO SCH ×3 (06:54→16:23)
[2017-06-15] MEDS: CATHETER FLUSH 10 ML SYR IV SCH (06:55)
--- NOTE | 2017-06-15 08:18 | PM & R (SOAP) Progress Note ---
Subjective This was a face to face visit with the patient. Date Seen by Provider: Jun 15, 2017 Time Seen by Provider: 08:00 Subjective/Events-last exam Patient was seen in her room this AM Discussed with RN Patient with some nausea which patient relates to antibiotic for UTI Improved with zofran Patient requets DNR status.Patient Mod assist for transfers TTWB RLE Review of Systems Gastrointestinal: Nausea Musculoskeletal: leg pain Objective Physician Exam Last Set of Vital Signs Vital Signs Date Time Temp Pulse Resp B/P (MAP) Pulse Ox O2 Delivery O2 Flow Rate FiO2 06/15/17 05:06 96.7 78 18 128/62 (84) 97 06/14/17 10:50 Room Air Capillary Refill : Less Than 3 Seconds I&O Intake and Output 06/15/17 00:00 Intake Total 850 ml Balance 850 ml Intake Oral 850 ml # Voids 4 # Bowel Movements 1 Daily Weight Change No General: Alert, Oriented X3, Cooperative, No Acute Distress HEENT: Atraumatic, PERRLA, EOMI, Mucous Memb Moist/[place] Neck: Supple, No JVD Lungs: Clear to Auscultation Heart: Regular Rate Abdomen: Normal Bowel Sounds, Soft, No Tenderness Extremities: No Edema Neuro: Other (Strength impaired at rt hip due to recent fracture and repair) Assessment/Plan Assessment and Plan RT Femur fracture s/p Pinning ortho TTWB RLE UTI on antibiotic Nausea related to above improved with Zofran DNR status Plan Continue PT/OT/Pain management Complete course of antibiotic for UTI Treat nausea symptomatically Document DNR status-See orders F/U with Ortho and PCP prn Team Conference tomorrow (1) Intertrochanteric fracture of right femur Qualifiers: Status: Acute Co-Morbidities that are continuing to impact the rehab process: (include details ) as per above TARIQ HYDE MD Jun 15, 2017 8:18 am
[2017-06-15] MEDS: PSYLLIUM POWDER (METAMUCIL) 5.8 GM PACKET PO SCH ×2 (08:32→20:39)
[2017-06-15] MEDS: DULoxetine 30 MG (CYMBALTA) CAP PO SCH (08:32)
[2017-06-15] MEDS: ENOXAPARIN 40 MG/0.4 ML (LOVENOX) SYR SC SCH (08:33)
[2017-06-15] MEDS: CIPROFLOXACIN 500 MG (CIPRO) TABLET PO SCH ×2 (10:56→23:08)
--- NOTE | 2017-06-15 11:06 | Occupational Ther Daily Note ---
OT Current Status-Daily Note Subjective Pt resting in bed, agrees to therapy. Pt has no reports of pain at rest, but states 8/10 right hip pain with activity. Mental Status/Objective Functional [place] Measure 0=Not Assessed/NA 4=Minimal Assistance 1=Total Assistance 5=Supervision or Setup 2=Maximal Assistance 6=Modified [place] 3=Moderate Assistance 7=Complete [place] ADL-Treatment Pt declined a shower, but would like a sponge bath this morning. Supine to sit with supervision. Gait to restroom with FWW, cues for TTWB right LE. Sponge bath completed seated at sink. Upper body bathing completed with set up. Pt able to wash bilateral upper legs and samy area with SBA. Stood with CGA to wash buttocks. Pt declined to remove GIGI hose to wash lower legs and feet. Don bra and pullover shirt with set up. Pt used dressing stick to start pants over feet. Stood with CGA for balance during pant hike. Pt doffed socks with SBA using dressing stick. Donned clean socks with SBA using sock aid. Pt states she already completed grooming tasks this morning. Transfer to [facility] over toilet with supervision. Pt completed toileting with CGA for balance during clothing management. Functional [place] Measure 0=Not Assessed/NA 4=Minimal Assistance 1=Total Assistance 5=Supervision or Setup 2=Maximal Assistance 6=Modified [place] 3=Moderate Assistance 7=Complete IndependenceIRFPAI Quality Coding Scale 6 Independent with activity with or without an assistive device 5 Patient requires set up or clean up by helper. Patient completes activity by themselves 4 Supervision or touching assist (CGA). [place] provide cues , steadying assist 3 The helper provides less than half the effort to complete the activity 2 The helper provides more than half the effort to complete the activity 1 Dependent. The helper does all the effort to complete an activity 7 Patient refused to complete or attempt activity 9 The patient did not perform the activity before the current illness or injury 88 Not attempted due to Medical conditions or safety concerns Upper Body (FIM): 5 Upper Body Dressing (QC): 5 Lower Body Dressing (FIM): 4 Lower Body Dressing (QC): 4 On/Off Footwear (QC): 5 Toileting (FIM): 4 Toileting Hygiene (QC): 4 Toilet/Commode Transfer (FIM): 5 Toilet Transfer (QC): 4 Other Treatment Pt completed bilateral UE exercises to increase strength needed for ADLs and transfers. Pt performed shoulder flexion, abduction, biceps curls, and triceps extension exercises x15 reps with minimal resistance (yellow) theraband. Brief rest breaks between exercises. Pt completed putty activity with bilateral hands to increase strength and manipulation skills. Pt able to remove small beads from moderate resistance putty without difficulty. Pt sitting in chair with needs met after session. OT Short Term Goals Short Term Goals Time Frame: Jun 21, 2017 Toileting(FIM): 5 Toilet/Commode Transfer(FIM): 5 Additional Short Term Goals: 1-Demonstrate ADL Tasks, 2-Verbalize Understanding , 3-ImproveStrength/Antione 1=Demonstrate adherence to instructed precautions during ADL tasks. 2=Patient will verbalize/demonstrate understanding of assistive devices/ modifications for ADL. 3=Patient will improve strength/tolerance for activity to enable patient to perform ADL's. OT [facility] Goals Senior Manufacturing Test Engineer Goals Time Frame: July 05, 2017 Eating (FIM): 7 Eating (QC): 6 Groomin Oral Hygiene (QC): 6 Bathing(FIM): 6 Shower/Bathe Self (QC): 6 Upper Body Dressing(FIM): 6 Upper Body Dressing (QC): 6 Lower Body Dressing(FIM): 6 Lower Body Dressing (QC): 6 On/Off Footwear (QC): 6 Toileting(FIM): 6 Toileting Hygiene (QC): 6 Toilet/Commode Transfer(FIM): 6 Toilet/Commode Transfer (QC): 6 Tub Transfer(FIM): 6 (Or shower) Shower Transfer(FIM): 6 (Or tub) Additional Goals: 1-Demonstrate ADL Tasks, 2-Verbalize Understanding, 3- ImproveStrength/Antione 1=Demonstrate adherence to instructed precautions during ADL tasks. 2=Patient will verbalize/demonstrate understanding of assistive devices/ modifications for ADL. 3=Patient will improve strength/tolerance for activity to enable patient to perform ADL's. OT Education/Plan Discharge Recommendations Plan/Recommendations: Continue POC Treatment Plan/Plan of Care Patient would benefit from OT for education, treatment and training to promote independence in ADL's, mobility, safety and/or upper extremity function for ADL' s. Plan of Care: ADL Retraining, Functional Mobility, Group Exercise/Act as Ind ( education, exercise, functional activities, socialization, activity tolerance), UE Funct Exercise/Act, UE Neuromus Re-Ed/Coord Treatment Duration: July 05, 2017 Frequency: At least 5 of 7 days/Wk (IRF) Estimated Hrs Per Day: 1.5 hours per day Agreement: Yes Rehab Potential: Fair Time/GCodes Start Time: 08:00 Stop Time: 09:00 Total Time Billed (hr/min): 60 Billed Treatment Time 1 visit, ADLx2(35minutes), EXx2(25minutes) LISA WISE OT Jun 15, 2017 11:06
--- NOTE | 2017-06-15 11:28 | Physical Therapy Daily Note ---
PT Daily Note-Current Subjective Pt sitting in recliner, upon arrival. Pt agrees to PT tx. Pt states, "I need my IV back in because I just can't drink and I don't want to get dehydrated. I can' t take pill antibiotics, I need them in the IV." Nursing notified. Pain Numeric Pain Scale: 8 Location: Right Location Body Site: Hip Pain Description: Stabbing Comment: Pt gives conflicting reports of pain during tx Mental Status Patient Orientation: Person, Place, Time, Situation Transfers Functional [place] Measure 0=Not Assessed/NA 4=Minimal Assistance 1=Total Assistance 5=Supervision or Setup 2=Maximal Assistance 6=Modified [place] 3=Moderate Assistance 7=Complete IndependenceIRFPAI Quality Coding Scale 6 Independent with activity with or without an assistive device 5 Patient requires set up or clean up by helper. Patient completes activity by themselves 4 Supervision or touching assist (CGA). [place] provide cues , steadying assist 3 The helper provides less than half the effort to complete the activity 2 The helper provides more than half the effort to complete the activity 1 Dependent. The helper does all the effort to complete an activity 7 Patient refused to complete or attempt activity 9 The patient did not perform the activity before the current illness or injury 88 Not attempted due to Medical conditions or safety concerns Transfers (B, C, W/C) (FIM): 4 Scootin Rollin Supine to/from Sit: 5 Sit to/from Stand: 4 Weight Bearing Right Lower Extremity: Right Touch Toe Bearing Left Lower Extremity: Left Full Weight Bearing Gait Training Does the Patient Walk?: Yes Gait (FIM): 4 Distance (FIM): 3=150 ft Distance: 175' Gait Level of Assist: 4 Gait Persons Needed: 1 Gait Assistive Device: FWW Exercises Supine Ex: Ankle pumps, Quad Set, Glut sets, Heel Slides, Short Arc Quads, Hip abd/add Supine Reps: 15 Seated Therapy Exercises: Ankle pumps, Long arc quads, Hip flexion Seated Reps: 15 Standing: Hamstring curls (R LE only ), 3 way Ex=Flex, Abd, Ext (R LE only ), Marching (R LE only ) Treatments Pt transfers w/ CGA to standing. Pt ambulates to Therapy Gym and completes Seated EX and Supine EX on the mat. Pt completes Standing EX at the //bars. Pt returns to room to rest in bed w/ all needs met including call light in hand, tray by beside and bucket in hand, at end of tx. Assessment Current Status: Good Progress Pt c/o of and requires frequent rest break d/t nausea. Pt states pain is 8/10, but facial expression conflicts the rating. PT Retirement Goals [place] Goals PT Retirement Goals Time Frame: July 02, 2017 Transfers (B,C,W/C) (FIM): 6 Sit to Lying (QC): 6 Lying-Sitting on Side/Bed(QC): 6 Sit to Stand (QC): 6 Rollin Roll Left to Right (QC): 6 Chair/[place] Xfer(QC): 6 Car Transfer (QC): 6 Does the Patient Walk: Yes Gait (FIM): 6 Gait distance (FIM): 3=150 ft Distance: 150' Walk 10 feet (QC): 6 Walk 10ft-Uneven Surface(QC): 6 Walk 50ft with 2 Turns (QC): 6 Walk 150 ft (QC): 6 Gait Level of Assist: 6 Gait Assistive Device: FWW Stairs (FIM): 6 # of Steps: 12 1 Step (curb) (QC): 6 4 Steps (QC): 6 12 Steps (QC): 6 Stairs Level Of Assist: 6 Picking up an Object (QC): 6 PT Plan Problem List Problem List: Activity Tolerance, Functional Strength, Safety, Gait, Transfer, Bed Mobility Treatment/Plan Treatment Plan: Continue Plan of Care Treatment Plan: Bed Mobility, Concurrent Therapy, Education, Functional Activity Antione, Functional Strength, Group Therapy, Gait, Safety, Therapeutic Exercise, Transfers Treatment Duration: July 02, 2017 Frequency: At least 5 of 7 days/Wk (IRF) Estimated Hrs Per Day: 1.5 hours per day Patient and/or Family Agrees t: Yes Safety Risks/Education Patient Education: Gait Training, Transfer Techniques, Correct Positioning, Disease Process, Safety Issues Teaching Recipient: Patient Teaching Methods: Demonstration, Discussion Response to Teaching: Verbalize Understanding, Reinforcement Needed Time/GCodes Time In: 0900 Time Out: 1000 Total Billed Treatment Time: 60 Total Billed Treatment 1, GT (15m), EX x2 (30m), FA (15m) G Codes Necessary: ZHANE Wong PUTTIER Jun 15, 2017 11:28
--- NOTE | 2017-06-15 13:01 | Occupational Ther Daily Note ---
OT Current Status-Daily Note Subjective Attempted therapy at 1045 and pt refused secondary to nausea, stating "I'm not going to do anything." RN was notified. Went back at 1150 and pt agreed to therapy with much encouragement. Pt states nausea is better than earlier. Mental Status/Objective Functional [place] Measure 0=Not Assessed/NA 4=Minimal Assistance 1=Total Assistance 5=Supervision or Setup 2=Maximal Assistance 6=Modified [place] 3=Moderate Assistance 7=Complete [place] ADL-Treatment Pt on way to restroom when therapist arrives. Pt had LOB, requiring assist to correct. Cues for walker use. Pt completed toileting with CGA for balance during clothing management. Stood at sink to wash hands with SBA. Functional [place] Measure 0=Not Assessed/NA 4=Minimal Assistance 1=Total Assistance 5=Supervision or Setup 2=Maximal Assistance 6=Modified [place] 3=Moderate Assistance 7=Complete IndependenceIRFPAI Quality Coding Scale 6 Independent with activity with or without an assistive device 5 Patient requires set up or clean up by helper. Patient completes activity by themselves 4 Supervision or touching assist (CGA). [place] provide cues , steadying assist 3 The helper provides less than half the effort to complete the activity 2 The helper provides more than half the effort to complete the activity 1 Dependent. The helper does all the effort to complete an activity 7 Patient refused to complete or attempt activity 9 The patient did not perform the activity before the current illness or injury 88 Not attempted due to Medical conditions or safety concerns Toileting (FIM): 4 Toileting Hygiene (QC): 4 Other Treatment Gait to therapy gym with FWW, cues for TTWB right LE, slow pace. Arm bike [id number] to increase overall strength and activity tolerance needed for functional tasks. Pt completed activity with minimal resistance and slow pace. No rest breaks needed. Graded clothespins activity with bilateral hands to increase auditing manager/pinch strength. Pt completed task with slow pace. Pt returned to room, sit to supine with SBA. Pt resting in bed with needs met after session. OT Short Term Goals Short Term Goals Time Frame: Jun 21, 2017 Toileting(FIM): 5 Toilet/Commode Transfer(FIM): 5 Additional Short Term Goals: 1-Demonstrate ADL Tasks, 2-Verbalize Understanding , 3-ImproveStrength/Antione 1=Demonstrate adherence to instructed precautions during ADL tasks. 2=Patient will verbalize/demonstrate understanding of assistive devices/ modifications for ADL. 3=Patient will improve strength/tolerance for activity to enable patient to perform ADL's. OT [facility] Goals Metal Drill Press Operator Goals Time Frame: July 05, 2017 Eating (FIM): 7 Eating (QC): 6 Groomin Oral Hygiene (QC): 6 Bathing(FIM): 6 Shower/Bathe Self (QC): 6 Upper Body Dressing(FIM): 6 Upper Body Dressing (QC): 6 Lower Body Dressing(FIM): 6 Lower Body Dressing (QC): 6 On/Off Footwear (QC): 6 Toileting(FIM): 6 Toileting Hygiene (QC): 6 Toilet/Commode Transfer(FIM): 6 Toilet/Commode Transfer (QC): 6 Tub Transfer(FIM): 6 (Or shower) Shower Transfer(FIM): 6 (Or tub) Additional Goals: 1-Demonstrate ADL Tasks, 2-Verbalize Understanding, 3- ImproveStrength/Antione 1=Demonstrate adherence to instructed precautions during ADL tasks. 2=Patient will verbalize/demonstrate understanding of assistive devices/ modifications for ADL. 3=Patient will improve strength/tolerance for activity to enable patient to perform ADL's. OT Education/Plan Discharge Recommendations Plan/Recommendations: Continue POC Treatment Plan/Plan of Care Patient would benefit from OT for education, treatment and training to promote independence in ADL's, mobility, safety and/or upper extremity function for ADL' s. Plan of Care: ADL Retraining, Functional Mobility, Group Exercise/Act as Ind ( education, exercise, functional activities, socialization, activity tolerance), UE Funct Exercise/Act, UE Neuromus Re-Ed/Coord Treatment Duration: July 05, 2017 Frequency: At least 5 of 7 days/Wk (IRF) Estimated Hrs Per Day: 1.5 hours per day Agreement: Yes Rehab Potential: Fair Time/GCodes Start Time: 11:50 Stop Time: 12:20 Total Time Billed (hr/min): 30 Billed Treatment Time 1 visit, ADL(10minutes), EX(20minutes) LISA WISE OT Jun 15, 2017 13:01
--- NOTE | 2017-06-15 14:21 | Physical Therapy Daily Note ---
PT Daily Note-Current Subjective Pt laying Supine in bed upon arrival. Pt agrees to PT. Pain Location: No Pain Reported Mental Status Patient Orientation: Person, Place, Time, Situation Transfers Functional [place] Measure 0=Not Assessed/NA 4=Minimal Assistance 1=Total Assistance 5=Supervision or Setup 2=Maximal Assistance 6=Modified [place] 3=Moderate Assistance 7=Complete IndependenceIRFPAI Quality Coding Scale 6 Independent with activity with or without an assistive device 5 Patient requires set up or clean up by helper. Patient completes activity by themselves 4 Supervision or touching assist ([facility]). [place] provide cues , steadying assist 3 The helper provides less than half the effort to complete the activity 2 The helper provides more than half the effort to complete the activity 1 Dependent. The helper does all the effort to complete an activity 7 Patient refused to complete or attempt activity 9 The patient did not perform the activity before the current illness or injury 88 Not attempted due to Medical conditions or safety concerns Scootin Supine to/from Sit: 5 Sit to/from Stand: 4 Sit to Lying (QC): 5 Sit to Stand (QC): 4 Weight Bearing Right Lower Extremity: Right Touch Toe Bearing Left Lower Extremity: Left Full Weight Bearing Gait Training Does the Patient Walk?: Yes Distance (FIM): 3=150 ft Distance: 150' Walk 10 feet (QC): 4 Walk 50 ft with 2 Turns(QC): 4 Walk 150 ft (QC): 4 Gait Level of Assist: 4 Gait Assistive Device: FWW Wheelchair Training Does the Pt Use a Wheelchair?: No Exercises NuStep Minutes: 10 Treatments Pt transfers from Supine to EOB at SBA then EOB to Standing using FWW at [facility]. Pt ambulates using FWW at [facility]. Pt uses NuStep for 10m at 3. Pt returns to room to use restroom then returns to bed to rest at end of tx with all needs met , including call light in hand and tray beside the bed. Assessment Current Status: Good Progress Pt is very quiet during tx, seems a little depressed but able to complete tx. PT Fabric Coating Supervisor Goals [facility] Goals PT [facility] Goals Time Frame: July 02, 2017 Transfers (B,C,W/C) (FIM): 6 Sit to Lying (QC): 6 Lying-Sitting on Side/Bed(QC): 6 Sit to Stand (QC): 6 Rollin Roll Left to Right (QC): 6 Chair/Uwk-ki-Jdddr Xfer(QC): 6 Car Transfer (QC): 6 Does the Patient Walk: Yes Gait (FIM): 6 Gait distance (FIM): 3=150 ft Distance: 150' Walk 10 feet (QC): 6 Walk 10ft-Uneven Surface(QC): 6 Walk 50ft with 2 Turns (QC): 6 Walk 150 ft (QC): 6 Gait Level of Assist: 6 Gait Assistive Device: FWW Stairs (FIM): 6 # of Steps: 12 1 Step (curb) (QC): 6 4 Steps (QC): 6 12 Steps (QC): 6 Stairs Level Of Assist: 6 Picking up an Object (QC): 6 PT Plan Problem List Problem List: Activity Tolerance, Functional Strength, Safety, Balance, Gait, Transfer Treatment/Plan Treatment Plan: Continue Plan of Care Treatment Plan: Bed Mobility, Concurrent Therapy, Education, Functional Activity Antione, Functional Strength, Group Therapy, Gait, Safety, Therapeutic Exercise, Transfers Treatment Duration: July 02, 2017 Frequency: At least 5 of 7 days/Wk (IRF) Estimated Hrs Per Day: 1.5 hours per day Patient and/or Family Agrees t: Yes Safety Risks/Education Patient Education: Gait Training, Transfer Techniques, Correct Positioning, Safety Issues Teaching Recipient: Patient Teaching Methods: Discussion Response to Teaching: Verbalize Understanding Time/GCodes Time In: 1330 Time Out: 1400 Total Billed Treatment 1,FA (15m) & EX (15m) ZHANE FRANCO PTA Jun 15, 2017 14:21
[2017-06-15 17:44] VITALS: BP 134/63
[2017-06-15 20:40] VITALS: BP 132/58
[2017-06-16 05:04] VITALS: BP 129/59
[2017-06-16 06:12] LABS: BASOPHILS % (AUTO) 1 % (0-10); EOSINOPHILS # (AUTO) 0.3 10^3/uL (0.0-0.3); EOSINOPHILS % (AUTO) 4 % (0-10); HEMATOCRIT 26 % (35-52); HEMOGLOBIN 8.7 G/DL (11.5-16.0); LYMPHOCYTES # (AUTO) 0.9 X 10^3 (1.0-4.0); LYMPHOCYTES % (AUTO) 15 % (12-44); MEAN CORPUSCULAR HEMOGLOBIN 30 PG (25-34); MEAN CORPUSCULAR HGB CONC 33 G/DL (32-36); MEAN CORPUSCULAR VOLUME 92 FL (80-99); MONOCYTES # (AUTO) 0.6 X 10^3 (0.0-1.0); MONOCYTES % (AUTO) 10 % (0-12); NEUTROPHILS # (AUTO) 4.4 X 10^3 (1.8-7.8); NEUTROPHILS % (AUTO) 71 % (42-75); PLATELET COUNT 189 10^3/uL (130-400); RED BLOOD COUNT 2.86 10^6/uL (4.35-5.85); RED CELL DISTRIBUTION WIDTH 12.3 % (10.0-14.5); WHITE BLOOD COUNT 6.2 10^3/uL (4.3-11.0)
[2017-06-16] MEDS: LACTOBACILLUS Acidoph/Bulgar (LACTINEX/FLORANEX) TAB PO SCH ×3 (06:16→16:29)
[2017-06-16] MEDS: FAMOTIDINE 20 MG (PEPCID) TABLET PO SCH (06:16)
[2017-06-16 06:30] LABS: ALANINE AMINOTRANSFERASE 28 U/L (0-55); ALBUMIN 3.1 GM/DL (3.2-4.5); ALKALINE PHOSPHATASE 44 U/L (40-136); BILIRUBIN,TOTAL 0.8 MG/DL (0.1-1.0); BUN/CREATININE RATIO 25; CALCIUM 8.5 MG/DL (8.5-10.1); CARBON DIOXIDE 28 MMOL/L (21-32); CHLORIDE 100 MMOL/L (98-107); CREATININE SERUM 0.63 MG/DL (0.60-1.30); GFR ESTIMATED > 60; GLUCOSE 83 MG/DL (70-105); POTASSIUM 3.7 MMOL/L (3.6-5.0); SODIUM 137 MMOL/L (135-145); TOTAL PROTEIN 5.4 GM/DL (6.4-8.2)
--- NOTE | 2017-06-16 07:28 | Progress Note-Standard ---
Standard Progress Note Progress Notes/Assess & Plan Date Seen by Provider: Jun 16, 2017 Time Seen by Provider: 07:27 Progress/Assessment & Plan No complaints R hip dressing intact. No calf tenderness. Neg Sherri's s/p ORIF R hip continue PT/OT NANCY SHAW MD Jun 16, 2017 07:28
[2017-06-16] MEDS: DULoxetine 30 MG (CYMBALTA) CAP PO SCH (08:02)
[2017-06-16] MEDS: PSYLLIUM POWDER (METAMUCIL) 5.8 GM PACKET PO SCH ×2 (08:02→20:30)
[2017-06-16] MEDS: ENOXAPARIN 40 MG/0.4 ML (LOVENOX) SYR SC SCH (08:04)
--- NOTE | 2017-06-16 08:59 | Physical Therapy Daily Note ---
PT Daily Note-Current Subjective Pt in bed, Nurse in room giving medication, upon arrival. Pt agrees to PT tx. Pain Numeric Pain Scale: 5-Moderate Pain Location: Right Location Body Site: Hip Pain Description: Ache Mental Status Patient Orientation: Person, Place, Time, Situation Transfers Functional [place] Measure 0=Not Assessed/NA 4=Minimal Assistance 1=Total Assistance 5=Supervision or Setup 2=Maximal Assistance 6=Modified [place] 3=Moderate Assistance 7=Complete IndependenceIRFPAI Quality Coding Scale 6 Independent with activity with or without an assistive device 5 Patient requires set up or clean up by helper. Patient completes activity by themselves 4 Supervision or touching assist (CGA). [place] provide cues , steadying assist 3 The helper provides less than half the effort to complete the activity 2 The helper provides more than half the effort to complete the activity 1 Dependent. The helper does all the effort to complete an activity 7 Patient refused to complete or attempt activity 9 The patient did not perform the activity before the current illness or injury 88 Not attempted due to Medical conditions or safety concerns Transfers (B, C, W/C) (FIM): 5 Scootin Supine to/from Sit: 5 Sit to/from Stand: 5 Weight Bearing Right Lower Extremity: Right Touch Toe Bearing Left Lower Extremity: Left Full Weight Bearing Gait Training Does the Patient Walk?: Yes Gait (FIM): 4 Distance (FIM): 3=150 ft Distance: 150' x2 Gait Level of Assist: 4 Gait Persons Needed: 1 Gait Assistive Device: FWW Stair Training Stair Training: Handrails/: 2 handrails Stairs (FIM): 5 #of Steps: 4 Stairs: Pattern: Step to Level of Assist: 5 Household exception. Pt also maneuvered single platform step, simulating home situation. Exercises Supine Ex: Ankle pumps, Quad Set, Glut sets, Heel Slides, Short Arc Quads, Straight leg raise (5 reps), Hip abd/add Supine Reps: 20 Seated Therapy Exercises: Ankle pumps, Long arc quads, Hip flexion NuStep Minutes: 12 NuStep Workload: 3 Treatments Pt transfers Supine to EOB at SBA. Pt transfers EOB to Standing at SBA. Pt ambulates to Therapy Gym, completes Seated EX and Supine EX on mat. Pt completes Stairs and single platform step, then completes NuStep for 12m at 3. Pt returns to room, uses bathroom and transfers to bed, to rest. Pt has all needs met including call light in hand and tray beside bed, at end of tx. Assessment Current Status: Good Progress Pt has no c/o of nausea today. PT Shelter Goals Shelter Goals PT [place] Tender Goals Time Frame: July 02, 2017 Transfers (B,C,W/C) (FIM): 6 Sit to Lying (QC): 6 Lying-Sitting on Side/Bed(QC): 6 Sit to Stand (QC): 6 Rollin Roll Left to Right (QC): 6 Chair/Kdi-tn-Fcjow Xfer(QC): 6 Car Transfer (QC): 6 Does the Patient Walk: Yes Gait (FIM): 6 Gait distance (FIM): 3=150 ft Distance: 150' Walk 10 feet (QC): 6 Walk 10ft-Uneven Surface(QC): 6 Walk 50ft with 2 Turns (QC): 6 Walk 150 ft (QC): 6 Gait Level of Assist: 6 Gait Assistive Device: FWW Stairs (FIM): 6 # of Steps: 12 1 Step (curb) (QC): 6 4 Steps (QC): 6 12 Steps (QC): 6 Stairs Level Of Assist: 6 Picking up an Object (QC): 6 PT Plan Treatment/Plan Treatment Plan: Continue Plan of Care Treatment Plan: Bed Mobility, Concurrent Therapy, Education, Functional Activity Antione, Functional Strength, Group Therapy, Gait, Safety, Therapeutic Exercise, Transfers Treatment Duration: July 02, 2017 Frequency: At least 5 of 7 days/Wk (IRF) Estimated Hrs Per Day: 1.5 hours per day Patient and/or Family Agrees t: Yes Safety Risks/Education Patient Education: Gait Training, Transfer Techniques, Steps, Correct Positioning, Safety Issues Teaching Recipient: Patient Teaching Methods: Demonstration, Discussion Response to Teaching: Verbalize Understanding, Return Demonstration Time/GCodes Time In: 0800 Time Out: 0900 Total Billed Treatment Time: 60 Total Billed Treatment 1, GT(15m), Ex x2 (30m), FA (15m) G Codes Necessary: JANENE Da Silva STAGE DIRECTOR Jun 16, 2017 08:59
--- NOTE | 2017-06-16 09:40 | Occupational Ther Daily Note ---
OT Current Status-Daily Note Subjective Pt alert, lying in bed. Pt agreed to therapy. No c/o pain. Mental Status/Objective Patient Orientation: Person, Place, Time, Situation Functional [place] Measure 0=Not Assessed/NA 4=Minimal Assistance 1=Total Assistance 5=Supervision or Setup 2=Maximal Assistance 6=Modified [place] 3=Moderate Assistance 7=Complete [place] ADL-Treatment Pt declined shower today. Pt transported clothing to bathroom. Pt completed sponge bath at sink for upper body and grooming. Completed with supervision. Pt then transported clothing with FWW to laundry and was able to place laundry in washer then took clothing out of dryer maintaining hip precautions, will need structures technician to get clothing from back of dryer. Pt then completed tub transfer by stepping into tub maintaining wt bearing status. Pt stated that she had no grabbars or tub seat at home. Pt then ambulated to therapy gym with FWW. Functional [place] Measure 0=Not Assessed/NA 4=Minimal Assistance 1=Total Assistance 5=Supervision or Setup 2=Maximal Assistance 6=Modified [place] 3=Moderate Assistance 7=Complete IndependenceIRFPAI Quality Coding Scale 6 Independent with activity with or without an assistive device 5 Patient requires set up or clean up by helper. Patient completes activity by themselves 4 Supervision or touching assist (CGA). [place] provide cues , steadying assist 3 The helper provides less than half the effort to complete the activity 2 The helper provides more than half the effort to complete the activity 1 Dependent. The helper does all the effort to complete an activity 7 Patient refused to complete or attempt activity 9 The patient did not perform the activity before the current illness or injury 88 Not attempted due to Medical conditions or safety concerns Grooming (FIM): 5 Oral Hygiene (QC): 4 Upper Body (FIM): 5 Upper Body Dressing (QC): 4 Tub Transfer(FIM): 5 Other Treatment Pt completed arm bike duration 15 min at 20 cifuentes resistance without breaks to increase strength and activity tolerance for daily functional tasks. Completed resistive clothes pins 2x's each hand. Using 2# wt for wrist flex/ext exercise , 30 reps. 3# wt for chest press and over head press, 30x's. 2# wt for bicep curls and tricep extensions, 30x's. 2 sets 5 reps for arm chair pushups. Pt then ambulated back to room, was going to hang up clothing then pt stated she was going back to bed. Pt was able to transfer into bed by self. After therapy , pt lying in bed with call light/phone in reach. All needs met in room. Education OT Patient Education: Transfer techniques Teaching Recipient: Patient Teaching Methods: Demonstration, Discussion Response to Teaching: Verbalize Understanding, Return Demonstration OT Short Term Goals Short Term Goals Time Frame: Jun 21, 2017 Toileting(FIM): 5 Toilet/Commode Transfer(FIM): 5 Additional Short Term Goals: 1-Demonstrate ADL Tasks, 2-Verbalize Understanding , 3-ImproveStrength/Antione 1=Demonstrate adherence to instructed precautions during ADL tasks. 2=Patient will verbalize/demonstrate understanding of assistive devices/ modifications for ADL. 3=Patient will improve strength/tolerance for activity to enable patient to perform ADL's. OT Emergency Response Coordinator Goals Emergency Response Coordinator Goals Time Frame: July 05, 2017 Eating (FIM): 7 Eating (QC): 6 Groomin Oral Hygiene (QC): 6 Bathing(FIM): 6 Shower/Bathe Self (QC): 6 Upper Body Dressing(FIM): 6 Upper Body Dressing (QC): 6 Lower Body Dressing(FIM): 6 Lower Body Dressing (QC): 6 On/Off Footwear (QC): 6 Toileting(FIM): 6 Toileting Hygiene (QC): 6 Toilet/Commode Transfer(FIM): 6 Toilet/Commode Transfer (QC): 6 Tub Transfer(FIM): 6 (Or shower) Shower Transfer(FIM): 6 (Or tub) Additional Goals: 1-Demonstrate ADL Tasks, 2-Verbalize Understanding, 3- ImproveStrength/Antione 1=Demonstrate adherence to instructed precautions during ADL tasks. 2=Patient will verbalize/demonstrate understanding of assistive devices/ modifications for ADL. 3=Patient will improve strength/tolerance for activity to enable patient to perform ADL's. OT Education/Plan Discharge Recommendations Plan/Recommendations: Continue POC Treatment Plan/Plan of Care Patient would benefit from OT for education, treatment and training to promote independence in ADL's, mobility, safety and/or upper extremity function for ADL' s. Plan of Care: ADL Retraining, Functional Mobility, Group Exercise/Act as Ind ( education, exercise, functional activities, socialization, activity tolerance), UE Funct Exercise/Act, UE Neuromus Re-Ed/Coord Treatment Duration: July 05, 2017 Frequency: At least 5 of 7 days/Wk (IRF) Estimated Hrs Per Day: 1.5 hours per day Agreement: Yes Rehab Potential: Fair Time/GCodes Start Time: 09:00 Stop Time: 10:30 Total Time Billed (hr/min): 90 Billed Treatment Time 1 visit-ADL 2 (30 min) FA 2 (30 min) EX 2 (30 min) RED LUCERO Jun 16, 2017 09:40
--- NOTE | 2017-06-16 09:45 | PM & R (SOAP) Progress Note ---
Subjective This was a face to face visit with the patient. Date Seen by Provider: Jun 16, 2017 Time Seen by Provider: 09:15 Subjective/Events-last exam Patient was seen in her room this AM with OT Antibiotic for uti changed and patients nausea resolved Patient SBA for transfers.Appreciate Dr Marquez note Review of Systems Musculoskeletal: leg pain Neurological: Weakness Objective Physician Exam Last Set of Vital Signs Vital Signs Date Time Temp Pulse Resp B/P (MAP) Pulse Ox O2 Delivery O2 Flow Rate FiO2 06/16/17 05:04 98.1 74 18 129/59 (82) 96 Room Air Capillary Refill : Less Than 3 Seconds I&O Intake and Output 06/16/17 00:00 Intake Total 1200 ml Balance 1200 ml Intake Oral 1200 ml # Voids 6 General: Alert, Oriented X3, Cooperative, No Acute Distress HEENT: Atraumatic, PERRLA, EOMI, Mucous Memb Moist/[place] Neck: Supple, No JVD Lungs: Clear to Auscultation Heart: Regular Rate Abdomen: Normal Bowel Sounds, Soft, No Tenderness Extremities: No Edema Neuro: Other (Strength impaired at rt hip due to recent fracture and repair) Results Lab Data Laboratory Tests 06/16/17 06:03: White Blood Count 6.2, Red Blood Count 2.86L, Hemoglobin 8.7L, Hematocrit 26L, Mean Corpuscular Volume 92, Mean Corpuscular Hemoglobin 30, Mean Corpuscular Hemoglobin Concent 33, Red Cell Distribution Width 12.3, Platelet Count 189, Mean Platelet Volume 10.0, Neutrophils (%) (Auto) 71, Lymphocytes (%) (Auto) 15 , Monocytes (%) (Auto) 10, Eosinophils (%) (Auto) 4, Basophils (%) (Auto) 1, Neutrophils # (Auto) 4.4, Lymphocytes # (Auto) 0.9L, Monocytes # (Auto) 0.6, Eosinophils # (Auto) 0.3, Basophils # (Auto) 0.0, Sodium Level 137, Potassium Level 3.7, Chloride Level 100, Carbon Dioxide Level 28, Anion Gap 9, Blood Urea Nitrogen 16, Creatinine 0.63, Estimat Glomerular Filtration Rate > 60, BUN/ Creatinine Ratio 25, Glucose Level 83, Calcium Level 8.5, Total Bilirubin 0.8, Aspartate Amino Transf (AST/SGOT) 49H, Alanine Aminotransferase (ALT/SGPT) 28, Alkaline Phosphatase 44, Total Protein 5.4L, Albumin 3.1L Current Funtional Status SBA for transfers Progress Toward Rehab Goals RT Intertrochanteric fracture s/p repair DR Agrawal TTWB RLE UTI under tratment Nausea rersolved Depression on meds HTN contgrolled with meds DVT Prophylaixs on Lovenox Sub CUt Plan Continue PT/OT Team Conference later today-See report for full functional update and POC and ELOS Assessment/Plan Assessment and Plan As Per above (1) Intertrochanteric fracture of right femur Qualifiers: Status: Acute Co-Morbidities that are continuing to impact the rehab process: (include details ) TARIQ HYDE MD Jun 16, 2017 09:45
[2017-06-16] MEDS: CIPROFLOXACIN 500 MG (CIPRO) TABLET PO SCH ×2 (11:17→22:29)
--- NOTE | 2017-06-16 13:30 | Physical Therapy Daily Note ---
PT Daily Note-Current Subjective Pt in bed resting, upon arrival. Pt agrees to PT tx. Pt asks if it'd be a good idea to ask for Tylenol before tx tomorrow morning, to help w/ pain management. MOTION PICTURE SET UP WORKER agrees it would be a good idea. Pt asks if pt is allowed to use the bathroom by herself at this time. Pt informed by MOTION PICTURE SET UP WORKER that at this time, pt must use call light when pt needs to use the bathroom or get out of bed. Pain Numeric Pain Scale: 5-Moderate Pain Location: Right Location Body Site: Hip Comment: Pt pain 5/10 when ambulating Mental Status Patient Orientation: Person, Place, Time, Situation Transfers Functional [place] Measure 0=Not Assessed/NA 4=Minimal Assistance 1=Total Assistance 5=Supervision or Setup 2=Maximal Assistance 6=Modified [place] 3=Moderate Assistance 7=Complete IndependenceIRFPAI Quality Coding Scale 6 Independent with activity with or without an assistive device 5 Patient requires set up or clean up by helper. Patient completes activity by themselves 4 Supervision or touching assist (CGA). [place] provide cues , steadying assist 3 The helper provides less than half the effort to complete the activity 2 The helper provides more than half the effort to complete the activity 1 Dependent. The helper does all the effort to complete an activity 7 Patient refused to complete or attempt activity 9 The patient did not perform the activity before the current illness or injury 88 Not attempted due to Medical conditions or safety concerns Transfers (B, C, W/C) (FIM): 5 Scootin Supine to/from Sit: 5 Sit to/from Stand: 5 Car Transfer (QC): 5 Weight Bearing Right Lower Extremity: Right Touch Toe Bearing Left Lower Extremity: Left Full Weight Bearing Gait Training Does the Patient Walk?: Yes Gait (FIM): 4 Distance (FIM): 3=150 ft Distance: 175' x2 Gait Level of Assist: 4 Gait Persons Needed: 1 Gait Assistive Device: FWW Pt requires 2 rest breaks during ambulation Exercises Seated Therapy Exercises: Ankle pumps, Long arc quads, Hip flexion, Kicking activity, Glut set Seated Reps: 20 Treatments Pt transfers Supine to EOB and EOB to standing at SBA. Pt uses restroom before pt ambulates to Therapy Gym, completes Seated EX in chair. Pt ambulates throughout Therapy Unit, then completes Car Transfer at SBA. Pt returns to room to rest in bed w/ all needs met including call light in hand and tray beside bed , at end of tx. Assessment Current Status: Good Progress Pt fatigues during ambulation. Pt pain 5/10 during ambulation, but 2/10 while seated and doing Seated EX. PT Mcfp Goals Mcfp Goals PT Boat Cleaner Goals Time Frame: July 02, 2017 Transfers (B,C,W/C) (FIM): 6 Sit to Lying (QC): 6 Lying-Sitting on Side/Bed(QC): 6 Sit to Stand (QC): 6 Rollin Roll Left to Right (QC): 6 Chair/Uml-lf-Nonfo Xfer(QC): 6 Car Transfer (QC): 6 Does the Patient Walk: Yes Gait (FIM): 6 Gait distance (FIM): 3=150 ft Distance: 150' Walk 10 feet (QC): 6 Walk 10ft-Uneven Surface(QC): 6 Walk 50ft with 2 Turns (QC): 6 Walk 150 ft (QC): 6 Gait Level of Assist: 6 Gait Assistive Device: FWW Stairs (FIM): 6 # of Steps: 12 1 Step (curb) (QC): 6 4 Steps (QC): 6 12 Steps (QC): 6 Stairs Level Of Assist: 6 Picking up an Object (QC): 6 PT Plan Treatment/Plan Treatment Plan: Continue Plan of Care Treatment Plan: Bed Mobility, Concurrent Therapy, Education, Functional Activity Antione, Functional Strength, Group Therapy, Gait, Safety, Therapeutic Exercise, Transfers Treatment Duration: July 02, 2017 Frequency: At least 5 of 7 days/Wk (IRF) Estimated Hrs Per Day: 1.5 hours per day Patient and/or Family Agrees t: Yes Safety Risks/Education Patient Education: Gait Training, Transfer Techniques, Correct Positioning, Disease Process, Safety Issues Teaching Recipient: Patient Teaching Methods: Demonstration, Discussion Response to Teaching: Verbalize Understanding, Return Demonstration Time/GCodes Time In: 1300 Time Out: 1330 Total Billed Treatment Time: 30 Total Billed Treatment 1, GT (15m), FA (15m) G Codes Necessary: JANENE Da Silva MOTION PICTURE SET UP WORKER Jun 16, 2017 13:30
[2017-06-16] MEDS: ACETAMINOPHEN 325 MG TABLET/CAPLET (TYLENOL) PO PRN ×2 (16:27→20:30)
[2017-06-16] MEDS ORDERED: PATIENT MAY USE OWN MED,SINGLE MED PO SCH ×2 (17:00)
[2017-06-16 18:00] VITALS: BP 135/58
[2017-06-17 05:00] VITALS: BP 151/67
[2017-06-17] MEDS: FAMOTIDINE 20 MG (PEPCID) TABLET PO SCH (06:27)
[2017-06-17] MEDS: LACTOBACILLUS Acidoph/Bulgar (LACTINEX/FLORANEX) TAB PO SCH ×3 (06:27→15:50)
[2017-06-17] MEDS: oxyCODONE/APAP 5/325MG (PERCOCET 5) TABLET PO PRN ×2 (07:41→12:15)
[2017-06-17] MEDS: PSYLLIUM POWDER (METAMUCIL) 5.8 GM PACKET PO SCH ×2 (08:07→20:27)
[2017-06-17] MEDS: DULoxetine 30 MG (CYMBALTA) CAP PO SCH (08:09)
[2017-06-17] MEDS: ESTER C 500 MG PO SCH (08:09)
[2017-06-17] MEDS: ENOXAPARIN 40 MG/0.4 ML (LOVENOX) SYR SC SCH (08:10)
--- NOTE | 2017-06-17 10:02 | Physical Therapy Daily Note ---
PT Daily Note-Current Subjective Pt in Therapy Gym, finishing up w/ OT, upon arrival. Pt agrees to PT tx. Pt states she had pain medication before OT tx. Pain Location: No Pain Reported Mental Status Patient Orientation: Person, Place, Time, Situation Transfers Functional [place] Measure 0=Not Assessed/NA 4=Minimal Assistance 1=Total Assistance 5=Supervision or Setup 2=Maximal Assistance 6=Modified [place] 3=Moderate Assistance 7=Complete IndependenceIRFPAI Quality Coding Scale 6 Independent with activity with or without an assistive device 5 Patient requires set up or clean up by helper. Patient completes activity by themselves 4 Supervision or touching assist (CGA). [place] provide cues , steadying assist 3 The helper provides less than half the effort to complete the activity 2 The helper provides more than half the effort to complete the activity 1 Dependent. The helper does all the effort to complete an activity 7 Patient refused to complete or attempt activity 9 The patient did not perform the activity before the current illness or injury 88 Not attempted due to Medical conditions or safety concerns Transfers (B, C, W/C) (FIM): 5 Scootin Supine to/from Sit: 5 Sit to/from Stand: 5 Weight Bearing Right Lower Extremity: Right Touch Toe Bearing Left Lower Extremity: Left Full Weight Bearing Gait Training Does the Patient Walk?: Yes Gait (FIM): 5 Distance (FIM): 3=150 ft Distance: 175' Walk 10 feet (QC): 5 Walk 50 ft with 2 Turns(QC): 5 Gait Level of Assist: 5 Gait Persons Needed: 1 Gait Assistive Device: FWW (1) Exercises Supine Ex: Ankle pumps, Quad Set, Glut sets, Heel Slides, Short Arc Quads Supine Reps: 20 Seated Therapy Exercises: Ankle pumps, Hip flexion, Kicking activity Seated Reps: 20 Standing: Hamstring curls (R LE only ), 3 way Ex=Flex, Abd, Ext (R LE only ), Marching (R LE only ) Standing Reps: 20 NuStep Minutes: 15 NuStep Workload: 3 Treatments Pt transfers to NuStep at SBA, completes NuStep for 15m at WL3. Pt completes Seated EX in chair and Standing EX at //bars. Pt completes Supine EX on mat. Pt ambulates throughout Therapy Gym before retuning to room to use the bathroom. After using the bathroom, pt rests in bed w/ all needs met including call light in hand and tray beside bed, at end of tx. Assessment Current Status: Good Progress Pt is motived to return home. Pt has no c/o of pain during tx. PT [place] Rough Opener Goals Residential Goals PT Residential Goals Time Frame: July 02, 2017 Transfers (B,C,W/C) (FIM): 6 Sit to Lying (QC): 6 Lying-Sitting on Side/Bed(QC): 6 Sit to Stand (QC): 6 Rollin Roll Left to Right (QC): 6 Chair/Tdw-os-Yvdcx Xfer(QC): 6 Car Transfer (QC): 6 Does the Patient Walk: Yes Gait (FIM): 6 Gait distance (FIM): 3=150 ft Distance: 150' Walk 10 feet (QC): 6 Walk 10ft-Uneven Surface(QC): 6 Walk 50ft with 2 Turns (QC): 6 Walk 150 ft (QC): 6 Gait Level of Assist: 6 Gait Assistive Device: FWW Stairs (FIM): 6 # of Steps: 12 1 Step (curb) (QC): 6 4 Steps (QC): 6 12 Steps (QC): 6 Stairs Level Of Assist: 6 Picking up an Object (QC): 6 PT Plan Problem List Problem List: Activity Tolerance, Functional Strength, Safety, Balance, Gait, Transfer Treatment/Plan Treatment Plan: Continue Plan of Care Treatment Plan: Bed Mobility, Concurrent Therapy, Education, Functional Activity Antione, Functional Strength, Group Therapy, Gait, Safety, Therapeutic Exercise, Transfers Treatment Duration: July 02, 2017 Frequency: At least 5 of 7 days/Wk (IRF) Estimated Hrs Per Day: 1.5 hours per day Patient and/or Family Agrees t: Yes Safety Risks/Education Patient Education: Gait Training, Transfer Techniques, Correct Positioning, Disease Process, Safety Issues Teaching Recipient: Patient Teaching Methods: Demonstration, Discussion Response to Teaching: Verbalize Understanding, Return Demonstration Time/GCodes Time In: 0900 Time Out: 1000 Total Billed Treatment Time: 60 Total Billed Treatment 1, EX x2 (35m), GT (15m), FA (10m) G Codes Necessary: ZHANE Wong RADIO INSTALLER AUTOMOBILE Jun 17, 2017 10:02
[2017-06-17] MEDS: CIPROFLOXACIN 500 MG (CIPRO) TABLET PO SCH ×2 (10:59→22:18)
--- NOTE | 2017-06-17 11:24 | Occupational Ther Daily Note ---
OT Current Status-Daily Note Subjective Pt alert, lying in bed. Pt agreed to therapy. No c/o pain at this time. Mental Status/Objective Patient Orientation: Person, Place, Time, Situation Functional [place] Measure 0=Not Assessed/NA 4=Minimal Assistance 1=Total Assistance 5=Supervision or Setup 2=Maximal Assistance 6=Modified [place] 3=Moderate Assistance 7=Complete [place] ADL-Treatment Pt was able to go from supine to sitting EOB by self. Pt declined shower and requested to just wash up. Pt ambulated to bathroom to sponge bath at sink. Pt transferred to toilet, mod I, and completed toileting with mod I using FWW and grabbar. Pt then ambulated to sink to complete upper body, samy area sponge bath and grooming using FWW for safety, mod I. Pt ambulated to recliner to don/doff foot wear using AE by self. Functional [place] Measure 0=Not Assessed/NA 4=Minimal Assistance 1=Total Assistance 5=Supervision or Setup 2=Maximal Assistance 6=Modified [place] 3=Moderate Assistance 7=Complete IndependenceIRFPAI Quality Coding Scale 6 Independent with activity with or without an assistive device 5 Patient requires set up or clean up by helper. Patient completes activity by themselves 4 Supervision or touching assist (CGA). [place] provide cues , steadying assist 3 The helper provides less than half the effort to complete the activity 2 The helper provides more than half the effort to complete the activity 1 Dependent. The helper does all the effort to complete an activity 7 Patient refused to complete or attempt activity 9 The patient did not perform the activity before the current illness or injury 88 Not attempted due to Medical conditions or safety concerns Grooming (FIM): 6 Oral Hygiene (QC): 6 Upper Body (FIM): 6 (Pt retrieved clothing from closet with FWW and was able to don/doff by self.) Other Treatment Pt then ambulated to therapy gym using FWW. Pt completed arm bike duration 15 min at 20 cifuentes resistance to increase strength and activity tolerance for daily functional tasks. Then completed 4 dowel lucas exercises with 2# wt attached, 30 reps each. PT took over care after OT session. All needs met. OT Short Term Goals Short Term Goals Time Frame: Jun 21, 2017 Toileting(FIM): 5 Toilet/Commode Transfer(FIM): 5 Additional Short Term Goals: 1-Demonstrate ADL Tasks, 2-Verbalize Understanding , 3-ImproveStrength/Antione 1=Demonstrate adherence to instructed precautions during ADL tasks. 2=Patient will verbalize/demonstrate understanding of assistive devices/ modifications for ADL. 3=Patient will improve strength/tolerance for activity to enable patient to perform ADL's. OT Customer Care Consultant Goals Customer Care Consultant Goals Time Frame: July 05, 2017 Eating (FIM): 7 Eating (QC): 6 Groomin Oral Hygiene (QC): 6 Bathing(FIM): 6 Shower/Bathe Self (QC): 6 Upper Body Dressing(FIM): 6 Upper Body Dressing (QC): 6 Lower Body Dressing(FIM): 6 Lower Body Dressing (QC): 6 On/Off Footwear (QC): 6 Toileting(FIM): 6 Toileting Hygiene (QC): 6 Toilet/Commode Transfer(FIM): 6 Toilet/Commode Transfer (QC): 6 Tub Transfer(FIM): 6 (Or shower) Shower Transfer(FIM): 6 (Or tub) Additional Goals: 1-Demonstrate ADL Tasks, 2-Verbalize Understanding, 3- ImproveStrength/Antione 1=Demonstrate adherence to instructed precautions during ADL tasks. 2=Patient will verbalize/demonstrate understanding of assistive devices/ modifications for ADL. 3=Patient will improve strength/tolerance for activity to enable patient to perform ADL's. OT Education/Plan Discharge Recommendations Plan/Recommendations: Continue POC Treatment Plan/Plan of Care Patient would benefit from OT for education, treatment and training to promote independence in ADL's, mobility, safety and/or upper extremity function for ADL' s. Plan of Care: ADL Retraining, Functional Mobility, Group Exercise/Act as Ind ( education, exercise, functional activities, socialization, activity tolerance), UE Funct Exercise/Act, UE Neuromus Re-Ed/Coord Treatment Duration: July 05, 2017 Frequency: At least 5 of 7 days/Wk (IRF) Estimated Hrs Per Day: 1.5 hours per day Agreement: Yes Rehab Potential: Fair Time/GCodes Start Time: 08:00 Stop Time: 09:00 Total Time Billed (hr/min): 60 Billed Treatment Time 1 visit-ADL 2 (30 min) EX 2 (30 min) RED LUCERO Jun 17, 2017 11:24
--- NOTE | 2017-06-17 12:35 | Occupational Ther Daily Note ---
OT Current Status-Daily Note Subjective Pt alert, lying in bed. Pt agreed to therapy. No c/o pain. Mental Status/Objective Patient Orientation: Person, Place, Time, Situation Functional [place] Measure 0=Not Assessed/NA 4=Minimal Assistance 1=Total Assistance 5=Supervision or Setup 2=Maximal Assistance 6=Modified [place] 3=Moderate Assistance 7=Complete [place] ADL-Treatment Functional [place] Measure 0=Not Assessed/NA 4=Minimal Assistance 1=Total Assistance 5=Supervision or Setup 2=Maximal Assistance 6=Modified [place] 3=Moderate Assistance 7=Complete IndependenceIRFPAI Quality Coding Scale 6 Independent with activity with or without an assistive device 5 Patient requires set up or clean up by helper. Patient completes activity by themselves 4 Supervision or touching assist (CGA). Orwell provide cues , steadying assist 3 The helper provides less than half the effort to complete the activity 2 The helper provides more than half the effort to complete the activity 1 Dependent. The helper does all the effort to complete an activity 7 Patient refused to complete or attempt activity 9 The patient did not perform the activity before the current illness or injury 88 Not attempted due to Medical conditions or safety concerns Other Treatment Pt completed B UE exercises with 1/2# wt on each wrist. Pt was able to tolerate wt while completing activity that worked on strengthening and increasing activity tolerance of UE's. Discussed with pt about AE that can be used at home and where to find items. Resource handout given to pt. After therapy, pt lying in bed with call light/phone in reach. All needs met in room. Education OT Patient Education: Use of adapted equipment (AE for home use) Teaching Recipient: Patient Teaching Methods: Handout, Discussion Response to Teaching: Verbalize Understanding OT Short Term Goals Short Term Goals Time Frame: Jun 21, 2017 Toileting(FIM): 5 Toilet/Commode Transfer(FIM): 5 Additional Short Term Goals: 1-Demonstrate ADL Tasks, 2-Verbalize Understanding , 3-ImproveStrength/Antione 1=Demonstrate adherence to instructed precautions during ADL tasks. 2=Patient will verbalize/demonstrate understanding of assistive devices/ modifications for ADL. 3=Patient will improve strength/tolerance for activity to enable patient to perform ADL's. OT Prison Goals Prison Goals Time Frame: July 05, 2017 Eating (FIM): 7 Eating (QC): 6 Groomin Oral Hygiene (QC): 6 Bathing(FIM): 6 Shower/Bathe Self (QC): 6 Upper Body Dressing(FIM): 6 Upper Body Dressing (QC): 6 Lower Body Dressing(FIM): 6 Lower Body Dressing (QC): 6 On/Off Footwear (QC): 6 Toileting(FIM): 6 Toileting Hygiene (QC): 6 Toilet/Commode Transfer(FIM): 6 Toilet/Commode Transfer (QC): 6 Tub Transfer(FIM): 6 (Or shower) Shower Transfer(FIM): 6 (Or tub) Additional Goals: 1-Demonstrate ADL Tasks, 2-Verbalize Understanding, 3- ImproveStrength/Antione 1=Demonstrate adherence to instructed precautions during ADL tasks. 2=Patient will verbalize/demonstrate understanding of assistive devices/ modifications for ADL. 3=Patient will improve strength/tolerance for activity to enable patient to perform ADL's. OT Education/Plan Discharge Recommendations Plan/Recommendations: Continue POC Treatment Plan/Plan of Care Patient would benefit from OT for education, treatment and training to promote independence in ADL's, mobility, safety and/or upper extremity function for ADL' s. Plan of Care: ADL Retraining, Functional Mobility, Group Exercise/Act as Ind ( education, exercise, functional activities, socialization, activity tolerance), UE Funct Exercise/Act, UE Neuromus Re-Ed/Coord Treatment Duration: July 05, 2017 Frequency: At least 5 of 7 days/Wk (IRF) Estimated Hrs Per Day: 1.5 hours per day Agreement: Yes Rehab Potential: Fair Time/GCodes Start Time: 11:30 Stop Time: 12:00 Total Time Billed (hr/min): 30 Billed Treatment Time 1 visit-FA 2 (30 min) RED LUCERO Jun 17, 2017 12:35
--- NOTE | 2017-06-17 12:46 | D/C HH Face to Face Order ---
D/C Face to Face Orders Instructions for Patient Patient Instructions/FollowUp: Dr. Oleary Physician to follow Patient: Dr. Agrawal Discharge Diet for Home: Regular Diet Patient Data-Allergies,Ht & Wt Patient Allergies: Coded Allergies: Penicillins (Unverified Allergy, Unknown, 07/06/14) Height (Feet): 5 Height (Inches): 2.00 Weight (Pounds): 119 Weight (Ounces): 1.0 Home Health Need/Face to Face Date of Face to Face: Jun 21, 2017 Clinical Findings: Generalized weakness and fatigue, Muscle weakness, Non or partial weight bearing, Unsteady gait I have seen Pt [id number]: Yes Discharged To: Home Diagnosis/Conditions: R hip fracture Patient is Homebound due to: Eloisa fall risk due to instabilty, Muscle weakness Homebound Status Due to the above stated illness, injury or surgical procedure (medical condition or diagnosis) and associated clinical findings, the patient is homebound because of his/her inability to leave home except with aid of a supportive device and/or person AND leaving the home requires a considerable and taxing effort or is medically contraindicated. Pt req the following assistanc: Walker Home Health Nursing Orders Home Health Services Order: Flooring Grader-Evaluate & Treat, Physical Therapy-Evaluate & Treat Home Health Infusion Therapy Site Location: Forearm Therapy Orders Therapy Orders: OT (must have SN or PT order), Physical Therapy Therapy Specific Orders: Eval assistive deivces, Teach enviro modifications/ safety, Gait training, Increase strength/endurance Certify Stmt I certify that this patient is under my care and that I, a nurse practitioner or a physician; a dental front office assistant working with me, had a face to face encounter that - meets the physician face to face encounter requirements with this patient as dated. I personally scribed for TARIQ HYDE MD ([facility]) on 06/17/17 at 12:45. Electronically submitted by Alda Barroso ([id number]). TARIQ HYDE MD Jun 17, 2017 12:44
--- NOTE | 2017-06-17 13:33 | Physical Therapy Daily Note ---
PT Daily Note-Current Subjective Pt in bed resting, upon arrival. Pt agrees to PT tx. Pain Location: No Pain Reported Mental Status Patient Orientation: Person, Place, Time, Situation Transfers Functional [place] Measure 0=Not Assessed/NA 4=Minimal Assistance 1=Total Assistance 5=Supervision or Setup 2=Maximal Assistance 6=Modified [place] 3=Moderate Assistance 7=Complete IndependenceIRFPAI Quality Coding Scale 6 Independent with activity with or without an assistive device 5 Patient requires set up or clean up by helper. Patient completes activity by themselves 4 Supervision or touching assist (CGA). Baggs provide cues , steadying assist 3 The helper provides less than half the effort to complete the activity 2 The helper provides more than half the effort to complete the activity 1 Dependent. The helper does all the effort to complete an activity 7 Patient refused to complete or attempt activity 9 The patient did not perform the activity before the current illness or injury 88 Not attempted due to Medical conditions or safety concerns Transfers (B, C, W/C) (FIM): 6 Scootin Supine to/from Sit: 6 Sit to/from Stand: 6 Sit to Lying (QC): 6 Sit to Stand (QC): 6 Weight Bearing Right Lower Extremity: Right Touch Toe Bearing Left Lower Extremity: Left Full Weight Bearing Gait Training Does the Patient Walk?: Yes Gait (FIM): 6 Distance (FIM): 3=150 ft Distance: 225', 150' Walk 10 feet (QC): 6 Walk 50 ft with 2 Turns(QC): 6 Walk 150 ft (QC): 6 Gait Level of Assist: 6 Gait Persons Needed: 1 Gait Assistive Device: FWW Pt maintains wt bearing status well. Stair Training Stairs (FIM): 5 #of Steps: 16 Stairs: Pattern: Step to Pt completes 2 sets of 4 stairs, rests and then completes 2 sets of 4 stairs again Exercises Seated Therapy Exercises: Ankle pumps, Long arc quads, Hip flexion Seated Reps: 15 Treatments Pt transfers Supine to EOB and EOB to standing at SBA. Pt ambulates community distance and then to Therapy Gym. Pt completes Stairs and then Seated EX in chair. Pt returns to room to use the bathroom and then rest in bed w/ all needs met including call light in hand and tray by bedside, at end of tx. Assessment Current Status: Good Progress Pt has no c/o of pain during tx. PT Hair Baler Goals Group Home Goals PT Group Home Goals Time Frame: July 02, 2017 Transfers (B,C,W/C) (FIM): 6 Sit to Lying (QC): 6 Lying-Sitting on Side/Bed(QC): 6 Sit to Stand (QC): 6 Rollin Roll Left to Right (QC): 6 Chair/Ske-ko-Mfqbj Xfer(QC): 6 Car Transfer (QC): 6 Does the Patient Walk: Yes Gait (FIM): 6 Gait distance (FIM): 3=150 ft Distance: 150' Walk 10 feet (QC): 6 Walk 10ft-Uneven Surface(QC): 6 Walk 50ft with 2 Turns (QC): 6 Walk 150 ft (QC): 6 Gait Level of Assist: 6 Gait Assistive Device: FWW Stairs (FIM): 6 # of Steps: 12 1 Step (curb) (QC): 6 4 Steps (QC): 6 12 Steps (QC): 6 Stairs Level Of Assist: 6 Picking up an Object (QC): 6 PT Plan Problem List Problem List: Functional Strength, Safety, Balance, Gait, Transfer Treatment/Plan Treatment Plan: Continue Plan of Care Treatment Plan: Bed Mobility, Concurrent Therapy, Education, Functional Activity Antione, Functional Strength, Group Therapy, Gait, Safety, Therapeutic Exercise, Transfers Treatment Duration: July 02, 2017 Frequency: At least 5 of 7 days/Wk (IRF) Estimated Hrs Per Day: 1.5 hours per day Patient and/or Family Agrees t: Yes Safety Risks/Education Patient Education: Gait Training, Transfer Techniques, Correct Positioning, Safety Issues Teaching Recipient: Patient Teaching Methods: Discussion Response to Teaching: Verbalize Understanding, Return Demonstration Time/GCodes Time In: 1300 Time Out: 1330 Total Billed Treatment Time: 30 Total Billed Treatment 1, GT (20m), Ex (10m) G Codes Necessary: ZHANE Wong RECORDER HELPER SEISMOGRAPH Jun 17, 2017 13:33
--- NOTE | 2017-06-17 17:14 | PM & R (SOAP) Progress Note ---
Subjective This was a face to face visit with the patient. Date Seen by Provider: Jun 17, 2017 Time Seen by Provider: 08:40 Subjective/Events-last exam Patient was seen in gym THIS am pROGRESSING WELL WITH THERAPIES pATIENT mODIFIED iNDEPENDENT FOR TRANSFERS cbc AND cHEM LAB NOTED Review of Systems Musculoskeletal: leg pain Neurological: Weakness Objective Physician Exam Last Set of Vital Signs Vital Signs Date Time Temp Pulse Resp B/P (MAP) Pulse Ox O2 Delivery O2 Flow Rate FiO2 06/17/17 05:00 97.6 81 18 151/67 (95) 97 Room Air Capillary Refill : Less Than 3 Seconds I&O Intake and Output 06/17/17 00:00 Intake Total 1000 ml Balance 1000 ml Intake Oral 1000 ml # Voids 9 General: Alert, Oriented X3, Cooperative, No Acute Distress HEENT: Atraumatic, PERRLA, EOMI, Mucous Memb Moist/[place] Neck: Supple, No JVD Lungs: Clear to Auscultation Heart: Regular Rate Abdomen: Normal Bowel Sounds, Soft, No Tenderness Extremities: No Edema Neuro: Other (Strength impaired at rt hip due to recent fracture and repair) Results Lab Data Laboratory Tests 06/16/17 06:03: White Blood Count 6.2, Red Blood Count 2.86L, Hemoglobin 8.7L, Hematocrit 26L, Mean Corpuscular Volume 92, Mean Corpuscular Hemoglobin 30, Mean Corpuscular Hemoglobin Concent 33, Red Cell Distribution Width 12.3, Platelet Count 189, Mean Platelet Volume 10.0, Neutrophils (%) (Auto) 71, Lymphocytes (%) (Auto) 15 , Monocytes (%) (Auto) 10, Eosinophils (%) (Auto) 4, Basophils (%) (Auto) 1, Neutrophils # (Auto) 4.4, Lymphocytes # (Auto) 0.9L, Monocytes # (Auto) 0.6, Eosinophils # (Auto) 0.3, Basophils # (Auto) 0.0, Sodium Level 137, Potassium Level 3.7, Chloride Level 100, Carbon Dioxide Level 28, Anion Gap 9, Blood Urea Nitrogen 16, Creatinine 0.63, Estimat Glomerular Filtration Rate > 60, BUN/ Creatinine Ratio 25, Glucose Level 83, Calcium Level 8.5, Total Bilirubin 0.8, Aspartate Amino Transf (AST/SGOT) 49H, Alanine Aminotransferase (ALT/SGPT) 28, Alkaline Phosphatase 44, Total Protein 5.4L, Albumin 3.1L Assessment/Plan Assessment and Plan rt iNTERTROCHANTERIC hIP FRACTURE S/P REPAIR ORTHO ttwb rle uti UNDER TREATMENT nAUSEA RESOLVED dEPRESSION ON MEDS htn CONTROLLED WITH MEDS dvt 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
--- NOTE | 2017-06-17 17:19 | Individualized Plan of Care ---
Individualized Plan of Care Rehab Nursing IPOC Order Admission Date Jun 14, 2017 at 10:00 am Current Orders Orders Admission Arrival Bed Request (06/14/17 10:00) Admission-Acute Rehab Unit (06/14/17 10:58) Patient Visit (06/14/17 ) Speech Sound Lang Comp (06/14/17 ) Dressing Order & Int (Surg/Med DAILY (06/14/17 11:20) Elevate Affected Extremity (06/14/17 11:20) Ice: Apply To Affected Area (06/14/17 11:20) Incentive Spirometry (Nursing) Q2H (06/14/17 11:20) Galo Montalvo , (06/14/17 11:20) Up With Assistance As Tolerate DAILY PRN (06/14/17 11:20) General/Regular (06/14/17 Lunch) Famotidine Tablet (Pepcid Tablet) (06/15/17 07:00) Lactobacillus/[place] Tab (Lactinex (06/14/17 16:00) Enoxaparin Injection (Lovenox Injection) (06/15/17 09:00) Oxycodone/Apap 5/325mg Tablet (Percocet (06/14/17 11:30) Promethazine Injection (Phenergan Injec (06/14/17 11:30) Propranolol Tablet (Inderal Tablet) (06/14/17 11:30) Psyllium Powder (Metamucil Powder) (06/14/17 21:00) Acetaminophen Tablet/Caplet (Tylenol T (06/14/17 11:30) Consult Physician (06/14/17 11:20) Physical Therapy Oder (06/14/17 11:20) Request Pt Additional Orders (06/14/17 11:20) Walker (06/14/17 11:20) Ondansetron Injection (Zofran Injectio (06/14/17 11:30) Duloxetine Capsule (Cymbalta Capsule) (06/14/17 11:30) Sulfamethoxazole/Trimet Ds Tab (Bactrim (06/14/17 17:00) Sodium Chloride Flush (Catheter Flush Sy (06/14/17 13:30) Sodium Chloride Flush (Catheter Flush Sy (06/14/17 14:00) Patient Visit (06/14/17 ) Pt Eval Moderate Complexity (06/14/17 ) Exercise Therap, Ea 15 Min (06/14/17 ) Gait Training, Ea 15 Min (06/14/17 ) Consult Physician (06/14/17 16:59) Rt Request For Service (Other) (06/14/17 17:45) Oxygen Administration (06/14/17 17:45) Ambulate TID (06/14/17 19:53) Sequential Compression Device 08,20 (06/14/17 19:53) Dvt/Vte Risk - Notifiy Physici 08 (06/14/17 19:53) Ondansetron Oral Dissolve Tab (Zofran (06/14/17 22:00) Promethazine Tablet (Phenergan Tablet) (06/14/17 22:00) Ondansetron Oral Dissolve Tab (Zofran (06/14/17 22:01) Code/Resuscitation (06/15/17 08:18) Cbc With Automated Diff (06/16/17 06:00) Comprehensive Metabolic Panel (06/16/17 06:00) Ciprofloxacin Tablet (Cipro Tablet) (06/15/17 11:00) Request Ot Evaluate & Treat (06/15/17 10:14) Request For Cognitive Services (06/15/17 10:14) Patient Visit (06/15/17 ) Gait Training, Ea 15 Min (06/15/17 ) Exercise Therap, Ea 15 Min (06/15/17 ) Functional Activities, Ea 15 (06/15/17 ) Patient Visit (06/16/17 ) Gait Training, Ea 15 Min (06/16/17 ) Exercise Therap, Ea 15 Min (06/16/17 ) Functional Activities, Ea 15 (06/16/17 ) Colon 3 Capsule (Fish Oil Capsule) (06/16/17 17:00) Patient May Use Own Med,Single (Patient (06/16/17 17:00) Patient May Use Own Med,Single (Patient (06/16/17 17:00) Patient's Own Med(Rx Use Only) (Patient' (06/17/17 08:00) Patient Visit (06/17/17 ) Gait Training, Ea 15 Min (06/17/17 ) Exercise Therap, Ea 15 Min (06/17/17 ) Functional Activities, Ea 15 (06/17/17 ) Rehab Nursing Orders: Nutrition Management, Pain Management, Weight Bearing Precaution, Wound Management Other Nursing Orders: mONITOR FOR POSTOP CONSTIPATION AND URINARY RETENTION wOUND CARE PT IPOC Problem List: Functional Strength, Safety, Balance, Gait, Transfer Treatment Plan: Continue Plan of Care Bed Mobility, Concurrent Therapy, Education, Functional Activity Antione, Functional Strength, Group Therapy, Gait, Safety, Therapeutic Exercise, Transfers Treatment Duration: July 02, 2017 Frequency: At least 5 of 7 days/Wk (IRF) Estimated Hrs Per Day: 1.5 hours per day OT IPOC Problems: Decreased Activ Tolerance, Decreased UE Strength, Dependent Transfers , Impaired Funct Balance, Impaired Self-Care Skills OT Treatment, Training and Edu: Yes Plan of Care: ADL Retraining, Functional Mobility, Group Exercise/Act as Ind ( education, exercise, functional activities, socialization, activity tolerance), UE Funct Exercise/Act, UE Neuromus Re-Ed/Coord Treatment Duration: July 05, 2017 Frequency: At least 5 of 7 days/Wk (IRF) Estimated Hrs Per Day: 1.[address] IPOC Speech Therapy Treatment Plan: Discontinue ST Treatment Duration: Jun 17, 2017 Frequency: Modified Program (IRF) (No ST warranted.) Estimated Hrs Per Day: Other (No ST warranted.) Master Dyer/Case Mgmt Master Dyer/Case Managemen: Discharge Planning, Patient/Family Counseling Physician IPOC Medical Issues being managed closely and that require the 24 hour availability of a physician: uti htn dEPRESSION dvt pROPHYLAXIS pOSTOP ANEMIA hYPOALBUMINEMIA Medical Issues: Bowel/Bladder Function, DVT Prophylaxis, Falls Precautions, Fluid/Electrolyte/Nutrition Balance, Infection Protection, Pain Management, Weight Bearing Precautions, Wound Care, Other (List) ( PER ABOVE) Brief Synthesis of Preadmission Screen, Post-Admission Evaluation, and Therapy Evaluations: 77 YO FEMAL WHO HAD BEEN iNDEPENDENT PRIOR TO FALL WITH RESULTING RT iNTERTROCHANTERIC HIP FRACTURE S/P REPAIR oRTHOPEDICS fOUND TO HAVE uti WELL AND ON aNTIBIOTIC aNTIBIOTIC SWITCHED DUE TO SOME NAUSEA FELT TO BE DUE TO bACTRIM tHE PATIENT IS ttwb rle POSTOP Medical Prognosis: gOOD Anticipated Length of Stay: 06-21-17 Rehab Goals mODIFIED iNDEPENDENT FOR ADLS AND mOBILITY SKILLS AT THE W/C LEVEL OF FUNCTION DUE TO ttwb rle Anticipated discharge destinat: hOME WITH TARIQ Dow MD Jun 17, 2017 5:19 pm
[2017-06-17 17:25] VITALS: BP 127/60
[2017-06-17] MEDS: ACETAMINOPHEN 325 MG TABLET/CAPLET (TYLENOL) PO PRN (20:27)
[2017-06-17] MEDS: OMEGA 3 (FISH OIL) 1000 MG CAP PO PRN (22:18)
[2017-06-18 05:22] VITALS: BP 119/55
[2017-06-18] MEDS: LACTOBACILLUS Acidoph/Bulgar (LACTINEX/FLORANEX) TAB PO SCH ×3 (06:13→16:48)
[2017-06-18] MEDS: FAMOTIDINE 20 MG (PEPCID) TABLET PO SCH (06:13)
[2017-06-18] MEDS: oxyCODONE/APAP 5/325MG (PERCOCET 5) TABLET PO PRN ×2 (06:13→11:18)
--- NOTE | 2017-06-18 07:07 | Progress Note-Standard ---
Standard Progress Note Progress Notes/Assess & Plan Date Seen by Provider: Jun 18, 2017 Time Seen by Provider: 07:06 Progress/Assessment & Plan No complaints R hip dressing intact. No calf tenderness. Neg Sherri's s/p ORIF R hip continue PT/OT Final Diagnosis no complaints RLE--able to perform SLR. No calf tenderness. s/p IM lucas R hip doing well continue PT/OT NANCY SHAW MD Jun 18, 2017 07:07
[2017-06-18] MEDS: PSYLLIUM POWDER (METAMUCIL) 5.8 GM PACKET PO SCH ×2 (08:01→22:10)
[2017-06-18] MEDS: ESTER C 500 MG PO SCH (08:03)
[2017-06-18] MEDS: DULoxetine 30 MG (CYMBALTA) CAP PO SCH (08:03)
[2017-06-18] MEDS: ENOXAPARIN 40 MG/0.4 ML (LOVENOX) SYR SC SCH (08:03)
[2017-06-18] MEDS: OMEGA 3 (FISH OIL) 1000 MG CAP PO PRN (08:05)
--- NOTE | 2017-06-18 08:05 | PM & R (SOAP) Progress Note ---
Subjective This was a face to face visit with the patient. Date Seen by Provider: Jun 18, 2017 Time Seen by Provider: 07:35 Subjective/Events-last exam Patient was seen in her room this AM Patient Modified Independent for transfers Has progressed well with therapies Current meds and Labs noted Appreciate Dr Marquez note.Tolerating current meds/antibiotics well Objective Physician Exam Last Set of Vital Signs Vital Signs Date Time Temp Pulse Resp B/P (MAP) Pulse Ox O2 Delivery O2 Flow Rate FiO2 06/18/17 05:22 97.3 81 18 119/55 (76) 97 Room Air Capillary Refill : Less Than 3 Seconds I&O Intake and Output 06/18/17 00:00 Intake Total 1300 ml Balance 1300 ml Intake Oral 1300 ml # Voids 8 # Bowel Movements 1 General: Alert, Oriented X3, Cooperative, No Acute Distress HEENT: Atraumatic, PERRLA, EOMI, Mucous Memb Moist/[place] Neck: Supple, No JVD Lungs: Clear to Auscultation Heart: Regular Rate Abdomen: Normal Bowel Sounds, Soft, No Tenderness Extremities: No Edema Neuro: Other (Strength impaired at rt hip due to recent fracture and repair) Results Lab Data Laboratory Tests 06/16/17 06:03: White Blood Count 6.2, Red Blood Count 2.86L, Hemoglobin 8.7L, Hematocrit 26L, Mean Corpuscular Volume 92, Mean Corpuscular Hemoglobin 30, Mean Corpuscular Hemoglobin Concent 33, Red Cell Distribution Width 12.3, Platelet Count 189, Mean Platelet Volume 10.0, Neutrophils (%) (Auto) 71, Lymphocytes (%) (Auto) 15 , Monocytes (%) (Auto) 10, Eosinophils (%) (Auto) 4, Basophils (%) (Auto) 1, Neutrophils # (Auto) 4.4, Lymphocytes # (Auto) 0.9L, Monocytes # (Auto) 0.6, Eosinophils # (Auto) 0.3, Basophils # (Auto) 0.0, Sodium Level 137, Potassium Level 3.7, Chloride Level 100, Carbon Dioxide Level 28, Anion Gap 9, Blood Urea Nitrogen 16, Creatinine 0.63, Estimat Glomerular Filtration Rate > 60, BUN/ Creatinine Ratio 25, Glucose Level 83, Calcium Level 8.5, Total Bilirubin 0.8, Aspartate Amino Transf (AST/SGOT) 49H, Alanine Aminotransferase (ALT/SGPT) 28, Alkaline Phosphatase 44, Total Protein 5.4L, Albumin 3.1L Assessment/Plan Assessment and Plan Rt Intertrochanteric hip fracture s/p repair DR Agrawal TTWB RLE UTI under treatment Nausea resolved Depression on meds HTN controlled with meds DVT Prophylaixs on Lovenox subcut DNR status Postop anemia Hypoalbuminemia Plan Continue PT/OT Discharge remains set for Wednesday06/21/17 to home with niece assisting as well as HHC F/U with PCP and DR Agrawal (1) Intertrochanteric fracture of right femur Qualifiers: Status: Acute Co-Morbidities that are continuing to impact the rehab process: (include details ) TARIQ HYDE MD Jun 18, 2017 08:05
[2017-06-18] MEDS ORDERED: ACID1TAB PO (08:11)
[2017-06-18] MEDS ORDERED: CIPR500T4 PO (08:11)
[2017-06-18] MEDS ORDERED: FAMO20TA5 PO (08:11)
[2017-06-18] MEDS ORDERED: DULO30CA3 PO (08:11)
[2017-06-18] MEDS ORDERED: OXYC-471 PO (08:11)
[2017-06-18] MEDS ORDERED: ACET325T49 PO (08:11)
[2017-06-18] MEDS ORDERED: PSYL3.4P5 PO (08:11)
[2017-06-18] MEDS ORDERED: OMG1KC PO (08:11)
--- NOTE | 2017-06-18 08:59 | Occupational Ther Daily Note ---
OT Current Status-Daily Note Subjective Pt alert, lying in bed. Pt agreed to therapy. No c/o pain. Mental Status/Objective Patient Orientation: Person, Place, Time, Situation Functional [place] Measure 0=Not Assessed/NA 4=Minimal Assistance 1=Total Assistance 5=Supervision or Setup 2=Maximal Assistance 6=Modified [place] 3=Moderate Assistance 7=Complete [place] ADL-Treatment Pt declined shower and requested to wash up at sink. Pt was able to stand at sink and cleanse upper body, samy area/buttocks and upper legs by self. Pt declined completed lower leg bathing. Functional [place] Measure 0=Not Assessed/NA 4=Minimal Assistance 1=Total Assistance 5=Supervision or Setup 2=Maximal Assistance 6=Modified [place] 3=Moderate Assistance 7=Complete IndependenceIRFPAI Quality Coding Scale 6 Independent with activity with or without an assistive device 5 Patient requires set up or clean up by helper. Patient completes activity by themselves 4 Supervision or touching assist (CGA). [place] provide cues , steadying assist 3 The helper provides less than half the effort to complete the activity 2 The helper provides more than half the effort to complete the activity 1 Dependent. The helper does all the effort to complete an activity 7 Patient refused to complete or attempt activity 9 The patient did not perform the activity before the current illness or injury 88 Not attempted due to Medical conditions or safety concerns Grooming (FIM): 6 (Mod I standing at sink with FWW to complete grooming.) Oral Hygiene (QC): 6 Lower Body Dressing (FIM): 6 (Pt retrieved own clothing then was able to don/ doff lower body clothing by self.) Lower Body Dressing (QC): 6 Toileting (FIM): 6 (Pt completed toileting using FWW and grabbars by self.) Toileting Hygiene (QC): 6 Toilet/Commode Transfer (FIM): 6 (Using grabbar and FWW pt is able to complete by self.) Toilet Transfer (QC): 6 Other Treatment Pt ambulated to therapy gym. Completed arm bike 15 min duration at 20 cifuentes resistance to increase strength and activity tolerance for daily functional tasks. Wrist flex/ext exercises with 2# wt, 3 sets 10 reps. Pt then ambulated back to room and put clothing back in closet. Then pt laid down in bed. Call light/phone in reach. All needs met in room. OT Short Term Goals Short Term Goals Time Frame: Jun 21, 2017 Toileting(FIM): 5 Toilet/Commode Transfer(FIM): 5 Additional Short Term Goals: 1-Demonstrate ADL Tasks, 2-Verbalize Understanding , 3-ImproveStrength/Antione 1=Demonstrate adherence to instructed precautions during ADL tasks. 2=Patient will verbalize/demonstrate understanding of assistive devices/ modifications for ADL. 3=Patient will improve strength/tolerance for activity to enable patient to perform ADL's. OT Shelter Goals Safety Net Maker Goals Time Frame: July 05, 2017 Eating (FIM): 7 Eating (QC): 6 Groomin Oral Hygiene (QC): 6 Bathing(FIM): 6 Shower/Bathe Self (QC): 6 Upper Body Dressing(FIM): 6 Upper Body Dressing (QC): 6 Lower Body Dressing(FIM): 6 Lower Body Dressing (QC): 6 On/Off Footwear (QC): 6 Toileting(FIM): 6 Toileting Hygiene (QC): 6 Toilet/Commode Transfer(FIM): 6 Toilet/Commode Transfer (QC): 6 Tub Transfer(FIM): 6 (Or shower) Shower Transfer(FIM): 6 (Or tub) Additional Goals: 1-Demonstrate ADL Tasks, 2-Verbalize Understanding, 3- ImproveStrength/Antione 1=Demonstrate adherence to instructed precautions during ADL tasks. 2=Patient will verbalize/demonstrate understanding of assistive devices/ modifications for ADL. 3=Patient will improve strength/tolerance for activity to enable patient to perform ADL's. OT Education/Plan Discharge Recommendations Plan/Recommendations: Continue POC Treatment Plan/Plan of Care Patient would benefit from OT for education, treatment and training to promote independence in ADL's, mobility, safety and/or upper extremity function for ADL' s. Plan of Care: ADL Retraining, Functional Mobility, Group Exercise/Act as Ind ( education, exercise, functional activities, socialization, activity tolerance), UE Funct Exercise/Act, UE Neuromus Re-Ed/Coord Treatment Duration: July 05, 2017 Frequency: At least 5 of 7 days/Wk (IRF) Estimated Hrs Per Day: 1.5 hours per day Agreement: Yes Rehab Potential: Fair Time/GCodes Start Time: 08:00 Stop Time: 09:00 Total Time Billed (hr/min): 60 Billed Treatment Time 1 visit-ADL 2 (30 min) EX 2 (30 min) RED LUCERO Jun 18, 2017 08:59
--- NOTE | 2017-06-18 09:55 | Physical Therapy Daily Note ---
PT Daily Note-Current Subjective Pt in bed resting, upon arrival. Pt agrees to PT tx. Pain Location: No Pain Reported Mental Status Patient Orientation: Person, Place, Time, Situation Transfers Functional [place] Measure 0=Not Assessed/NA 4=Minimal Assistance 1=Total Assistance 5=Supervision or Setup 2=Maximal Assistance 6=Modified [place] 3=Moderate Assistance 7=Complete IndependenceIRFPAI Quality Coding Scale 6 Independent with activity with or without an assistive device 5 Patient requires set up or clean up by helper. Patient completes activity by themselves 4 Supervision or touching assist (CGA). [place] provide cues , steadying assist 3 The helper provides less than half the effort to complete the activity 2 The helper provides more than half the effort to complete the activity 1 Dependent. The helper does all the effort to complete an activity 7 Patient refused to complete or attempt activity 9 The patient did not perform the activity before the current illness or injury 88 Not attempted due to Medical conditions or safety concerns Transfers (B, C, W/C) (FIM): 6 Scootin Supine to/from Sit: 6 Sit to/from Stand: 6 Car Transfer (QC): 6 Weight Bearing Right Lower Extremity: Right Touch Toe Bearing Left Lower Extremity: Left Full Weight Bearing Gait Training Does the Patient Walk?: Yes Gait (FIM): 6 Distance (FIM): 3=150 ft Distance: 350'+ Gait Level of Assist: 6 Gait Persons Needed: 0 Gait Assistive Device: FWW Pt ambulates w/out any LOB consistently Stair Training Stair Training: Handrails/: 2 handrails Stairs (FIM): 6 #of Steps: 12 Stairs: Pattern: Step to Level of Assist: 6 Pt completes Stairs w/ no LOB Exercises Supine Ex: Ankle pumps, Quad Set, Glut sets, Heel Slides Supine Reps: 15 Standing: Side steps, Weight shifts NuStep Minutes: 15 NuStep Workload: 3 Treatments Pt transfers from Supine to Standing at Mod I. Pt ambulates throughout Therapy Unit to the Gym. Pt completes NuStep for 15m at WL3, then completes Stairs. Pt completes Figure 8, side stepping, backwards walking and car transfer. Pt returns to room, completes Supine EX in bed, Pt in bed resting w/ all needs met including call light in hand and tray beside bed, at end of tx. Assessment Current Status: Good Progress Pt c/o of being tired. Pt completes tx w/ few rest breaks. PT Mcfp Goals Mcfp Goals PT Mcfp Goals Time Frame: July 02, 2017 Transfers (B,C,W/C) (FIM): 6 Sit to Lying (QC): 6 Lying-Sitting on Side/Bed(QC): 6 Sit to Stand (QC): 6 Rollin Roll Left to Right (QC): 6 Chair/Yom-ps-Ybapk Xfer(QC): 6 Car Transfer (QC): 6 Does the Patient Walk: Yes Gait (FIM): 6 Gait distance (FIM): 3=150 ft Distance: 150' Walk 10 feet (QC): 6 Walk 10ft-Uneven Surface(QC): 6 Walk 50ft with 2 Turns (QC): 6 Walk 150 ft (QC): 6 Gait Level of Assist: 6 Gait Assistive Device: FWW Stairs (FIM): 6 # of Steps: 12 1 Step (curb) (QC): 6 4 Steps (QC): 6 12 Steps (QC): 6 Stairs Level Of Assist: 6 Picking up an Object (QC): 6 PT Plan Treatment/Plan Treatment Plan: Continue Plan of Care Treatment Plan: Bed Mobility, Concurrent Therapy, Education, Functional Activity Antione, Functional Strength, Group Therapy, Gait, Safety, Therapeutic Exercise, Transfers Treatment Duration: July 02, 2017 Frequency: At least 5 of 7 days/Wk (IRF) Estimated Hrs Per Day: 1.5 hours per day Patient and/or Family Agrees t: Yes Safety Risks/Education Patient Education: Gait Training, Transfer Techniques, Steps, Correct Positioning, Disease Process, Safety Issues Teaching Recipient: Patient Teaching Methods: Demonstration, Discussion Response to Teaching: Verbalize Understanding, Return Demonstration Time/GCodes Time In: 0900 Time Out: 1000 Total Billed Treatment Time: 60 Total Billed Treatment 1,FA25m,EX20m,GT15m G Codes Necessary: JANENE Da Silva HERB GROWER Jun 18, 2017 09:55
[2017-06-18] MEDS: CIPROFLOXACIN 500 MG (CIPRO) TABLET PO SCH ×2 (11:18→22:42)
--- NOTE | 2017-06-18 14:38 | Therapy Group Daily Note ---
Therapy Daily Group Note Patient Education Topic Home Safety, Exercises Exercises LE Seated Exercise, UE Exercise Other/Notes Pt ambulated with FWW to OT/PT group in [facility] area. Group consisted of introductions (name, place living, sibling story), socialization, UE/LE seated exercises, continuum of care, HEP, home pain management (ice/hot packs) and ARU description/expectations. Pt was able to appropriately introduce self and actively listened to peers. Pt verbalized understanding of educational topics. Contributed to topics and peer conversations. UE/LE seated exercises completed. Theraband given to pt for HEP. After group, pt lying in bed with call light/phone in reach. All needs met in room. Start Time: 13:00 Stop Time: 14:10 Total Billed Treatment Time: 70 Total Billed Treatment 1-GRP RED LUCERO Jun 18, 2017 14:38
[2017-06-18 17:13] VITALS: BP 131/63
[2017-06-18] MEDS: ACETAMINOPHEN 325 MG TABLET/CAPLET (TYLENOL) PO PRN (22:11)
[2017-06-19 06:00] VITALS: BP 122/61
[2017-06-19] MEDS: LACTOBACILLUS Acidoph/Bulgar (LACTINEX/FLORANEX) TAB PO SCH ×3 (06:22→16:10)
[2017-06-19] MEDS: FAMOTIDINE 20 MG (PEPCID) TABLET PO SCH (06:23)
[2017-06-19] MEDS: PSYLLIUM POWDER (METAMUCIL) 5.8 GM PACKET PO SCH ×2 (08:33→21:28)
[2017-06-19] MEDS: DULoxetine 30 MG (CYMBALTA) CAP PO SCH (08:33)
[2017-06-19] MEDS: ENOXAPARIN 40 MG/0.4 ML (LOVENOX) SYR SC SCH (08:33)
[2017-06-19] MEDS: ESTER C 500 MG PO SCH (08:34)
[2017-06-19] MEDS: OMEGA 3 (FISH OIL) 1000 MG CAP PO PRN (08:35)
[2017-06-19] MEDS: ACETAMINOPHEN 325 MG TABLET/CAPLET (TYLENOL) PO PRN ×2 (08:38→19:10)
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
--- NOTE | 2017-06-19 09:41 | Progress Note-Standard ---
Standard Progress Note Progress Notes/Assess & Plan Date Seen by Provider: Jun 19, 2017 Time Seen by Provider: 09:39 Progress/Assessment & Plan No complaints R hip dressing intact. No calf tenderness. Neg Sherri's s/p ORIF R hip continue PT/OT Final Diagnosis No complaints able to perform SLR RLE no calf tenderness. Neg Sherri's s/p IM lucas R hip FU 06/28/17 50 % WB RLE NANCY SHAW MD Jun 19, 2017 09:41
[2017-06-19] MEDS: CIPROFLOXACIN 500 MG (CIPRO) TABLET PO SCH ×2 (11:12→22:52)
[2017-06-19 19:01] VITALS: BP 133/66
[2017-06-20 06:00] VITALS: BP 121/56
[2017-06-20] MEDS: ACETAMINOPHEN 325 MG TABLET/CAPLET (TYLENOL) PO PRN ×2 (06:50→15:21)
[2017-06-20] MEDS: FAMOTIDINE 20 MG (PEPCID) TABLET PO SCH (06:50)
[2017-06-20] MEDS: LACTOBACILLUS Acidoph/Bulgar (LACTINEX/FLORANEX) TAB PO SCH ×3 (06:50→15:21)
[2017-06-20] MEDS: ESTER C 500 MG PO SCH (08:22)
[2017-06-20] MEDS: PSYLLIUM POWDER (METAMUCIL) 5.8 GM PACKET PO SCH ×2 (08:22→20:23)
[2017-06-20] MEDS: ENOXAPARIN 40 MG/0.4 ML (LOVENOX) SYR SC SCH (08:22)
[2017-06-20] MEDS: DULoxetine 30 MG (CYMBALTA) CAP PO SCH (08:22)
[2017-06-20] MEDS: CIPROFLOXACIN 500 MG (CIPRO) TABLET PO SCH ×2 (11:39→22:03)
[2017-06-20 18:06] VITALS: BP 121/68
[2017-06-21 05:30] VITALS: BP 110/61
[2017-06-21] MEDS: FAMOTIDINE 20 MG (PEPCID) TABLET PO SCH ×2 (06:33→09:13)
[2017-06-21] MEDS: LACTOBACILLUS Acidoph/Bulgar (LACTINEX/FLORANEX) TAB PO SCH ×3 (06:33→11:22)
--- NOTE | 2017-06-21 08:11 | Occupational Ther Daily Note ---
OT Current Status-Daily Note Subjective Pt alert, lying in bed. Pt agreed to therapy. No c/o pain. Pt to discharge today. Mental Status/Objective Patient Orientation: Person, Place, Time, Situation Functional [place] Measure 0=Not Assessed/NA 4=Minimal Assistance 1=Total Assistance 5=Supervision or Setup 2=Maximal Assistance 6=Modified [place] 3=Moderate Assistance 7=Complete [place] ADL-Treatment Functional [place] Measure 0=Not Assessed/NA 4=Minimal Assistance 1=Total Assistance 5=Supervision or Setup 2=Maximal Assistance 6=Modified [place] 3=Moderate Assistance 7=Complete IndependenceIRFPAI Quality Coding Scale 6 Independent with activity with or without an assistive device 5 Patient requires set up or clean up by helper. Patient completes activity by themselves 4 Supervision or touching assist (CGA). [place] provide cues , steadying assist 3 The helper provides less than half the effort to complete the activity 2 The helper provides more than half the effort to complete the activity 1 Dependent. The helper does all the effort to complete an activity 7 Patient refused to complete or attempt activity 9 The patient did not perform the activity before the current illness or injury 88 Not attempted due to Medical conditions or safety concerns Eating (FIM): 7 (Pt able to complete set up and feeding self.) Eating (QC): 6 Grooming (FIM): 7 (Pt is able to complete own grooming standing at sink.) Oral Hygiene (QC): 6 Bathing (FIM): 6 (Using grabbar, shower bench and hand held shower pt is able to complete all bathing by self.) Bathing Location: L Arm, R Arm, L Upper Leg, R Upper Leg, L Lower Leg ( including foot), R Lower Leg (including foot), Chest, Abdomen, Buttocks, Perineal Area Shower/Bathe Self (QC): 6 Upper Body (FIM): 6 (Using FWW to retrieve clothing. Pt complete upper body dressing by self.) Upper Body Dressing (QC): 6 Lower Body Dressing (FIM): 6 (Using FWW to retrieve clothing. Pt complete lower body dressing by self using AE.) Lower Body Dressing (QC): 6 On/Off Footwear (QC): 6 Toileting (FIM): 6 (Using grabbar and BSC, pt is able to complete by self.) Toileting Hygiene (QC): 6 Transfers (B, C, W/C) (FIM): 6 (Using FWW, pt transfers by self.) Toilet/Commode Transfer (FIM): 6 (Using FWW and BSC, pt is able to complete.) Toilet Transfer (QC): 6 Tub Transfer(FIM): 6 (Pt completed using hand holds, tub seat and FWW.) Shower Transfer(FIM): 6 (Using grabbar and shower bench, pt is able to complete.) OT Short Term Goals Short Term Goals Time Frame: Jun 21, 2017 Toileting(FIM): 5 Toilet/Commode Transfer(FIM): 5 Additional Short Term Goals: 1-Demonstrate ADL Tasks, 2-Verbalize Understanding , 3-ImproveStrength/Antione 1=Demonstrate adherence to instructed precautions during ADL tasks. 2=Patient will verbalize/demonstrate understanding of assistive devices/ modifications for ADL. 3=Patient will improve strength/tolerance for activity to enable patient to perform ADL's. OT Resident Services Manager Goals Resident Services Manager Goals Time Frame: July 05, 2017 Eating (FIM): 7 (06/21/2017) Eating (QC): 6 (06/21/2017) Groomin (06/21/2017) Oral Hygiene (QC): 6 (06/21/2017) Bathing(FIM): 6 (06/21/2017) Shower/Bathe Self (QC): 6 (06/21/2017) Upper Body Dressing(FIM): 6 (06/21/2017) Upper Body Dressing (QC): 6 (06/21/2017) Lower Body Dressing(FIM): 6 (06/21/2017) Lower Body Dressing (QC): 6 (06/21/2017) On/Off Footwear (QC): 6 (06/21/2017) Toileting(FIM): 6 (06/21/2017) Toileting Hygiene (QC): 6 Toilet/Commode Transfer(FIM): 6 (06/21/2017) Toilet/Commode Transfer (QC): 6 (06/21/2017) Tub Transfer(FIM): 6 (Or jvmnpl-abv-8/30/2018) Shower Transfer(FIM): 6 (Or tub/met-06/21/2017) Additional Goals: 1-Demonstrate ADL Tasks, 2-Verbalize Understanding, 3- ImproveStrength/Antione 1=Demonstrate adherence to instructed precautions during ADL tasks. 2=Patient will verbalize/demonstrate understanding of assistive devices/ modifications for ADL. 3=Patient will improve strength/tolerance for activity to enable patient to perform ADL's. OT Education/Plan Discharge Recommendations Plan/Recommendations: Continue POC Treatment Plan/Plan of Care Patient would benefit from OT for education, treatment and training to promote independence in ADL's, mobility, safety and/or upper extremity function for ADL' s. Plan of Care: ADL Retraining, Functional Mobility, Group Exercise/Act as Ind ( education, exercise, functional activities, socialization, activity tolerance), UE Funct Exercise/Act, UE Neuromus Re-Ed/Coord Treatment Duration: July 05, 2017 Frequency: At least 5 of 7 days/Wk (IRF) Estimated Hrs Per Day: 1.5 hours per day Agreement: Yes Rehab Potential: Fair Time/GCodes Start Time: 08:00 Stop Time: 08:30 Total Time Billed (hr/min): 30 Billed Treatment Time 1 visit-ADL 2 (30 min) RED LUCERO Jun 21, 2017 08:11
[2017-06-21] MEDS: ESTER C 500 MG PO SCH (09:09)
[2017-06-21] MEDS: DULoxetine 30 MG (CYMBALTA) CAP PO SCH (09:09)
[2017-06-21] MEDS: PSYLLIUM POWDER (METAMUCIL) 5.8 GM PACKET PO SCH (09:10)
[2017-06-21] MEDS: ENOXAPARIN 40 MG/0.4 ML (LOVENOX) SYR SC SCH (09:11)
[2017-06-21] MEDS: oxyCODONE/APAP 5/325MG (PERCOCET 5) TABLET PO PRN (09:33)
--- NOTE | 2017-06-21 12:05 | Physical Therapy Daily Note ---
PT Daily Note-Current Subjective Pt. states she is ready to go home but has some grinding type feeling in her medial right thigh. This CONTINUOUS DRYOUT OPERATOR HELPER reinforced maintaining TDWBing Pain Numeric Pain Scale: 3 Location: Right Location Body Site: Knee (thigh) Mental Status Patient Orientation: Normal For Age Transfers Functional [place] Measure 0=Not Assessed/NA 4=Minimal Assistance 1=Total Assistance 5=Supervision or Setup 2=Maximal Assistance 6=Modified [place] 3=Moderate Assistance 7=Complete IndependenceIRFPAI Quality Coding Scale 6 Independent with activity with or without an assistive device 5 Patient requires set up or clean up by helper. Patient completes activity by themselves 4 Supervision or touching assist (CGA). [place] provide cues , steadying assist 3 The helper provides less than half the effort to complete the activity 2 The helper provides more than half the effort to complete the activity 1 Dependent. The helper does all the effort to complete an activity 7 Patient refused to complete or attempt activity 9 The patient did not perform the activity before the current illness or injury 88 Not attempted due to Medical conditions or safety concerns Transfers (B, C, W/C) (FIM): 7 Scootin Rollin Roll Left to Right (QC): 7 Supine to/from Sit: 7 Sit to/from Stand: 7 Sit to Lying (QC): 7 Sit to Stand (QC): 7 Chair/Loz-nl-Rysmq Xfer(QC): 7 Bed to/from Chair: 7 Car Transfer (QC): 7 Weight Bearing Right Lower Extremity: Right Touch Toe Bearing Left Lower Extremity: Left Full Weight Bearing Gait Training Does the Patient Walk?: Yes Gait (FIM): 7 Distance (FIM): 3=150 ft (200x3) Walk 10 feet (QC): 7 Walk 50 ft with 2 Turns(QC): 7 Walk 150 ft (QC): 7 Walking 10ft/uneven surface-QC: 7 Gait Level of Assist: 7 Gait Persons Needed: 0 Gait Assistive Device: FWW no LOB Wheelchair Training Does the Pt Use a Wheelchair?: No Wheelchair (FIM): 6 Stair Training Stair Training: Handrails/: 2 handrails Stairs (FIM): 6 #of Steps: 12 1 Step (curb) (QC): 6 4 Steps (QC): 6 12 Steps (QC): 6 Stairs: Pattern: Step to Level of Assist: 6 Balance Special Test Comments not safe to attempt Exercises Supine Ex: Ankle pumps, Quad Set, Rolling, Glut sets, Heel Slides, Short Arc Quads, Scooting, Straight leg raise (x5), Hip abd/add Supine Reps: 15 Seated Therapy Exercises: Ankle pumps, Sit to stand, Long arc quads Seated Reps: 10 Assessment Current Status: Excellent Progress up ad katelyn observed to demonstrate safe habits and techniques PT Childcare Center Administrator Goals Childcare Center Administrator Goals PT Childcare Center Administrator Goals Time Frame: July 02, 2017 Transfers (B,C,W/C) (FIM): 6 Sit to Lying (QC): 6 Lying-Sitting on Side/Bed(QC): 6 Sit to Stand (QC): 6 Rollin Roll Left to Right (QC): 6 Chair/Wur-hn-Hkvyc Xfer(QC): 6 Car Transfer (QC): 6 Does the Patient Walk: Yes Gait (FIM): 6 Gait distance (FIM): 3=150 ft Distance: 150' Walk 10 feet (QC): 6 Walk 10ft-Uneven Surface(QC): 6 Walk 50ft with 2 Turns (QC): 6 Walk 150 ft (QC): 6 Gait Level of Assist: 6 Gait Assistive Device: FWW Stairs (FIM): 6 # of Steps: 12 1 Step (curb) (QC): 6 4 Steps (QC): 6 12 Steps (QC): 6 Stairs Level Of Assist: 6 Picking up an Object (QC): 6 PT Plan Treatment/Plan Treatment Plan: Discontinue PT, goals met Treatment Plan: Bed Mobility, Concurrent Therapy, Education, Functional Activity Antione, Functional Strength, Group Therapy, Gait, Safety, Therapeutic Exercise, Transfers Treatment Duration: July 02, 2017 Frequency: At least 5 of 7 days/Wk (IRF) Estimated Hrs Per Day: 1.5 hours per day Patient and/or Family Agrees t: Yes Safety Risks/Education Patient Education: Gait Training, Transfer Techniques, Steps, Issued Written HEP, Correct Positioning, Disease Process, Safety Issues Teaching Recipient: Patient Teaching Methods: Demonstration, Discussion Response to Teaching: Verbalize Understanding, Return Demonstration, Reinforcement Needed (reinforced TDWB) Discharge Recommendations Therapy D/C Recommendations: Home w/ Family Support, Physical Therapy Home Care Time/GCodes Time In: 1135 Time Out: 1200 Total Billed Treatment Time: 30 Total Billed Treatment 1,FA20m,GT10m G Codes Necessary: No LUEBBER, JANENE A CONTINUOUS DRYOUT OPERATOR HELPER Jun 21, 2017 12:05
--- NOTE | 2017-06-21 14:59 | PM & R (SOAP) Progress Note ---
Subjective This was a face to face visit with the patient. Date Seen by Provider: Jun 21, 2017 Time Seen by Provider: 12:00 Subjective/Events-last exam Patient was discahred today to home with family and HHC Has progressed well Objective Physician Exam Last Set of Vital Signs Vital Signs Date Time Temp Pulse Resp B/P (MAP) Pulse Ox O2 Delivery O2 Flow Rate FiO2 06/21/17 05:30 97.7 75 16 110/61 (77) 98 Room Air Capillary Refill : Less Than 3 Seconds I&O Intake and Output 06/21/17 00:00 Intake Total 1000 ml Balance 1000 ml Intake Oral 1000 ml # Voids 7 General: Alert, Oriented X3, Cooperative, No Acute Distress HEENT: Atraumatic, PERRLA, EOMI, Mucous Memb Moist/[place] Neck: Supple, No JVD Lungs: Clear to Auscultation Heart: Regular Rate Abdomen: Normal Bowel Sounds, Soft, No Tenderness Extremities: No Edema Neuro: Other (Strength impaired at rt hip due to recent fracture and repair) Assessment/Plan Assessment and Plan S/P Hip fracture repair Plann Discharge today to home with family and HHC F/U with PCP and DR Agrawal See orders (1) Intertrochanteric fracture of right femur Qualifiers: Status: Acute Co-Morbidities that are continuing to impact the rehab process: (include details ) TARIQ HYDE MD Jun 21, 2017 14:59
[2017-06-21 16:17] VITALS: BP 110/61
--- NOTE | 2017-06-22 09:57 | Therapy Team Discharge Summary ---
Therapy Discharge Summary Discharge Recommendations Date of Discharge Jun 21, 2017 at 13:40 Therapy D/C Recommendations: Home w/ Family Support, Physical Therapy Home Care Occupational Therapy Decreased Activ Tolerance, Decreased UE Strength, Dependent Transfers, Impaired Funct Balance, Impaired Self-Care Skills PT Half-Way Goals Half-Way Goals PT Fitness [employer] Manager Goals Time Frame: July 02, 2017 Transfers (B,C,W/C) (FIM): 6 (Goal met. Patient a 7 for tansfers as of 06/21/17 ) Roll Left to Right (QC): 6 (Goal Met. [place] FIM 7 QC 6 as of 06/21/17.) Sit to Lying (QC): 6 (Goal Met. [place] FIM 7 and QC 6 as of 06/21/17.) Lying-Sitting on Side/Bed(QC): 6 (QC 6 as f 06/21/17) Sit to Stand (QC): 6 (QC 6 as f 06/21/17) Chair/Hoy-hl-Brbwy Xfer(QC): 6 (QC 6 as f 06/21/17) Car Transfer (QC): 6 (FIM 6 as of 06/21/17 using FWW for up to 200ft at Partial wt bearing) Does the Patient Walk: Yes Gait (FIM): 6 (FIM 6 as of 06/21/17) Gait distance (FIM): 3=150 ft Distance: 150' Walk 10 feet (QC): 6 (QC 6 as of 06/21/17) Walk 10ft-Uneven Surface(QC): 6 (QC 6 as of 06/21/17) Walk 50ft with 2 Turns (QC): 6 (QC 6 as of 06/21/17) Walk 150 ft (QC): 6 (QC 6 as of 06/21/17) Gait Level of Assist: 6 (FIM 6 as of 06/21/17) Gait Assistive Device: FWW Does the Pt use WC or Scooter?: Yes Stairs (FIM): 6 (FIM 6 for 12 steps with hand rails as of 06/11/17) # of Steps: 12 (12 steps as of 06/21/17) 1 Step (curb) (QC): 6 (QC 6 as of 06/21/17) 4 Steps (QC): 6 (QC 6 as of 06/21/17) 12 Steps (QC): 6 (QC 6 as of 06/21/17) Stairs Level Of Assist: 6 (QC 6 as of 06/21/17) Picking up an Object (QC): 6 (scored as an 88 due) OT Half-Way Goals Half-Way Goals Time Frame: July 05, 2017 Eating (FIM): 7 (met-06/21/2017) Eating (QC): 6 (met-06/21/2017) Oral Hygiene (QC): 6 (met-06/21/2017) Grooming(FIM): 6 (met06/21/2017) Bathing(FIM): 6 (met06/21/2017) Shower/Bathe Self (QC): 6 (06/21/2017) Upper Body Dressing(FIM): 6 (06/21/2017) Upper Body Dressing (QC): 6 (06/21/2017) Lower Body Dressing(FIM): 6 (-06/21/2017) Lower Body Dressing (QC): 6 (met06/21/2017) On/Off Footwear (QC): 6 (met06/21/2017) Toileting(FIM): 6 (met06/21/2017) Toileting Hygiene (QC): 6 Toilet/Commode Transfer(FIM): 6 (met-06/21/2017) Toilet/Commode Transfer (QC): 6 (met06/21/2017) Tub Transfer(FIM): 6 (Or koxtqp-[id number]-0/30/2018) Shower Transfer(FIM): 6 (Or tub/-06/21/2017) Additional Goals: 1-Demonstrate ADL Tasks, 2-Verbalize Understanding, 3- ImproveStrength/Antione 1=Demonstrate adherence to instructed precautions during ADL tasks. 2=Patient will verbalize/demonstrate understanding of assistive devices/ modifications for ADL. 3=Patient will improve strength/tolerance for activity to enable patient to perform ADL's. LORENZO GIRALDO PT June 22, 2017 09:57
--- NOTE | 2017-06-22 15:47 | Therapy Team Discharge Summary ---
Therapy Discharge Summary Discharge Recommendations Date of Discharge Jun 21, 2017 at 13:40 Therapy D/C Recommendations: Home w/ Family Support, Physical Therapy Home Care Occupational Therapy Pt was seen for skilled OT to increase her independence in basic self care so that she could safely go home to live independently after a broken hip with repair. On admission she needed setup for eating and upper body dressing, SBA for grooming, toileting and toilet transfers, min assist with bathing and shower transfers and mod assist with lower body dressing. By discharge she was eating and grooming independently and was modified independent with bathing, toileting and dressing. Equipment used included bedside commode, shower bench, grab bars, hand held shower and FWW. See tx plan for goals met. Home health OT is recommended. DC OT. Decreased Activ Tolerance, Decreased UE Strength, Dependent Transfers, Impaired Funct Balance, Impaired Self-Care Skills PT Half-Way Goals Half-Way Goals PT Half-Way Goals Time Frame: July 02, 2017 Transfers (B,C,W/C) (FIM): 6 (Goal met. Patient a 7 for [facility] as of 06/21/17 ) Roll Left to Right (QC): 6 (Goal Met. [place] FIM 7 QC 6 as of 06/21/17.) Sit to Lying (QC): 6 (Goal Met. [place] FIM 7 and QC 6 as of 06/21/17.) Lying-Sitting on Side/Bed(QC): 6 (QC 6 as f 06/21/17) Sit to Stand (QC): 6 (QC 6 as f 06/21/17) Chair/Xoe-wx-Pfypi Xfer(QC): 6 (QC 6 as f 06/21/17) Car Transfer (QC): 6 (FIM 6 as of 06/21/17 using FWW for up to 200ft at Partial wt bearing) Does the Patient Walk: Yes Gait (FIM): 6 (FIM 6 as of 06/21/17) Gait distance (FIM): 3=150 ft Distance: 150' Walk 10 feet (QC): 6 (QC 6 as of 06/21/17) Walk 10ft-Uneven Surface(QC): 6 (QC 6 as of 06/21/17) Walk 50ft with 2 Turns (QC): 6 (QC 6 as of 06/21/17) Walk 150 ft (QC): 6 (QC 6 as of 06/21/17) Gait Level of Assist: 6 (FIM 6 as of 06/21/17) Gait Assistive Device: FWW Does the Pt use WC or Scooter?: Yes Stairs (FIM): 6 (FIM 6 for 12 steps with hand rails as of 06/11/17) # of Steps: 12 (12 steps as of 06/21/17) 1 Step (curb) (QC): 6 (QC 6 as of 06/21/17) 4 Steps (QC): 6 (QC 6 as of 06/21/17) 12 Steps (QC): 6 (QC 6 as of 06/21/17) Stairs Level Of Assist: 6 (QC 6 as of 06/21/17) Picking up an Object (QC): 6 (scored as an 88 due) OT Spinning Mule Operator Goals Half-Way Goals Time Frame: July 05, 2017 Eating (FIM): 7 (-06/21/2017) Eating (QC): 6 (06/21/2017) Oral Hygiene (QC): 6 (06/21/2017) Grooming(FIM): 6 (06/21/2017) Bathing(FIM): 6 (06/21/2017) Shower/Bathe Self (QC): 6 (06/21/2017) Upper Body Dressing(FIM): 6 (06/21/2017) Upper Body Dressing (QC): 6 (06/21/2017) Lower Body Dressing(FIM): 6 (06/21/2017) Lower Body Dressing (QC): 6 (06/21/2017) On/Off Footwear (QC): 6 (06/21/2017) Toileting(FIM): 6 (06/21/2017) Toileting Hygiene (QC): 6 Toilet/Commode Transfer(FIM): 6 (06/21/2017) Toilet/Commode Transfer (QC): 6 (06/21/2017) Tub Transfer(FIM): 6 (Or [id number]-9/30/2018) Shower Transfer(FIM): 6 (Or tub/06/21/2017) Additional Goals: 1-Demonstrate ADL Tasks, 2-Verbalize Understanding, 3- ImproveStrength/Antione 1=Demonstrate adherence to instructed precautions during ADL tasks. 2=Patient will verbalize/demonstrate understanding of assistive devices/ modifications for ADL. 3=Patient will improve strength/tolerance for activity to enable patient to perform ADL's. LEWIS TSAI OT June 22, 2017 15:47
--- NOTE | 2017-06-30 12:39 | DISCHARGE SUMMARY ---
DATE OF SERVICE: HISTORY OF PRESENT ILLNESS: The patient is a 77-year-old female who fell at home with resulting intertrochanteric fracture of the right hip. She had a right hip ORIF at [facility]. Therapies were begun. She was felt to be appropriate for inpatient rehabilitation unit. She had been independent prior to this. She does have a prior history of fall with left hip fracture status post repair but does not use a walker all the time. She is single and retired from [employer]. PRIMARY CARE PHYSICIAN: Dr. Oleary. PAST MEDICAL HISTORY: Falls, hypertension, osteoporosis, IBS without diarrhea, depression, osteoarthritis, E. coli UTI. MEDICAL COURSE: The patient continued on Lovenox subcu for DVT prophylaxis and her other home medications. She utilized Percocet p.r.n. for pain control. She is followed by Dr. Agrawal as well as Dr. Martinez while on rehab unit. She was afebrile during her stay. Pulse was 75 on 06/21/2017, respirations 16, blood pressure 110/61, O2 sat 98% on room air. CBC on 06/16/2017, showed WBC 6.2, H and H 8.7/26, platelet count 189,000. Chemistry on 06/16/2017, showed AST elevated at 49 and albumin and total protein low at 3.1 and 5.4 respectively. Remainder of chemistry within normal limits. She continued on a course of antibiotics for UTI. She found that the Bactrim was making her somewhat nauseous and this was switched over to Cipro. REHABILITATION COURSE: She progressed well with the therapy. She had increased strength and endurance, decreased pain. Her incision site was healing well. She was assessed by speech therapy upon admission and found to be cognitively intact. They signed off. OT notes upon admission, she required setup for eating and upper body dressing, standby assist for grooming, toileting and toilet transfers, min assist for bathing and shower transfers with mod assist for lower body dressing. By discharge, she was modified independent with bathing, toileting and dressing. PT notes, upon admission, the patient was min assist for transfers and gait with a walker. Upon discharge, she was modified independent for transfers, bed mobility and gait with a front wheel walker. DISCHARGE INSTRUCTIONS: She will have followup with Dr. Oleary and Dr. Agrawal as per their schedule. Continue current diet. She will have home health care. DISCHARGE MEDICATIONS: Tylenol 650 mg p.o. q.4 hours p.r.n. pain, Cipro 500 mg p.o. b.i.d., Cymbalta 30 mg p.o. daily, Pepcid 20 mg p.o. daily, Floranex one tablet p.o. before meals, fish oil 1000 mg p.o. daily, generic Percocet 5/325 1-2 tablets p.o. q.4 hours p.r.n. moderate pain, Metamucil 5.8 grams p.o. b.i.d., propranolol 20 mg p.o. q.6 hours p.r.n. racing heart. DISCHARGE DIAGNOSES: 1. Rehabilitation ambulatory dysfunction secondary to intertrochanteric fracture of the right hip with osteoporosis, status post fall. 2. Repeated falls. 3. Urinary tract infection, treated. 4. Nausea related to Bactrim, relieved with switch to Cipro. 5. Hypertension, controlled with medication. 6. Irritable bowel syndrome. 7. Depression. 8. Osteoarthritis. 9. DNR status. 10. Postop anemia. 11. Hypoalbuminemia. CONDITION AT DISCHARGE: Improved and stable. PROGNOSIS: Rehab prognosis appears good for continued improvement at home with home health care and return to independent living. Job ID: [id number] DocumentID: [id number] Dictated Date: 06/29/2017 13:22:24 Drug Abuse Resistance Education Officer Date: 06/30/2017 12:38:34 Dictated By: TARIQ MARTINEZ MD MTDD
== END 2017-06-21 13:40 | disposition home health service (06) | DRG 560 ==
PROVIDERS: ADMIT Physical Medicine & Rehabilitation; ATTEND Physical Medicine & Rehabilitation
DX: M80.051D Age-related osteoporosis with current pathological fracture, right femur, subsequent encounter for fracture with routine healing (principal); R29.6 Repeated falls; N39.0 Urinary tract infection, site not specified; I10 Essential (primary) hypertension; K58.9 Irritable bowel syndrome, unspecified; F32.9 Major depressive disorder, single episode, unspecified; M19.90 Unspecified osteoarthritis, unspecified site; Z66 Do not resuscitate; D64.9 Anemia, unspecified; E88.09 Other disorders of plasma-protein metabolism, not elsewhere classified
CPT/HCPCS: 36415; 80053; 85025

== ENCOUNTER 2017-10-01 15:36 | Outpatient (RCR) | payer MEDICARE ==
[~2017-10-01 15:36] MED LIST changes: +ACET325T49 PO; +ACID1TAB PO; +CIPR500T4 PO; +FAMO20TA5 PO; +OMG1KC PO; +OXYC-471 PO
== END 2017-10-03 | disposition home or self-care (01) ==
PROVIDERS: ATTEND Orthopaedic Surgery
DX: S72.91XD Unspecified fracture of right femur, subsequent encounter for closed fracture with routine healing (principal); M25.551 Pain in right hip; W01.0XXD Fall on same level from slipping, tripping and stumbling without subsequent striking against object, subsequent encounter

== ENCOUNTER 2017-10-22 09:32 | Outpatient (RCR) | payer MEDICARE ==
[~2017-10-22 09:32] MED LIST changes: -OXYC-197 PO; +OXYC1TAB87 PO
== END 2017-10-22 17:00 | disposition home or self-care (01) ==
PROVIDERS: ATTEND Orthopaedic Surgery
DX: S72.91XD Unspecified fracture of right femur, subsequent encounter for closed fracture with routine healing (principal); M25.551 Pain in right hip; W01.0XXD Fall on same level from slipping, tripping and stumbling without subsequent striking against object, subsequent encounter

== ENCOUNTER 2017-11-18 13:00 | Outpatient (CLI) | payer MEDICARE ==
[~2017-11-18] VITALS: Ht 157.5 cm; Wt 46.3 kg
== END 2017-11-18 15:21 | disposition home or self-care (01) ==
LOC: PREOP 13:00
PROVIDERS: ATTEND Surgery
DX: Z01.818 Encounter for other preprocedural examination (principal)

== ENCOUNTER 2017-11-23 09:19 | Day surgery (SDC) | payer MEDICARE ==
[~2017-11-23] VITALS: Ht 157.5 cm; Wt 46.3 kg
[2017-11-23] MEDS ORDERED: LACTATED RINGERS 1,000 ML IV STA (09:43)
[2017-11-23] MEDS ORDERED: ONDANSETRON 4 MG/2 ML (SDV) Z0FRAN ONE (09:49)
--- OUTSIDE RECORDS SUMMARY | 2017-11-23 09:52 | XMS REPORT | Continuity of Care Document ---
Author Author [facility] Organization [facility] Address Unknown Phone Unavailable Allergies Active Description Code Type Severity Reaction Onset Reported/Identified Relationship to Patient Clinical Status Yes No Allergy Information Available [id number] Drug Allergy Unknown N/A 2012 Yes Penicillins [id number] Drug Allergy Unknown N/A 07/06/2014 Medications There is no data. Problems Date Dx Coded Attending Type Code Diagnosis Diagnosed By 01/21/1699 COLIN VARGAS, NANCY Quintana Ot M25.551 PAIN IN RIGHT HIP 01/21/1699 COLIN VARGAS, NANCY Quintana Ot S72.91XD UNSP FRACTURE OF RIGHT FEMUR, SUBS FOR C 01/21/1699 COLIN VARGAS, NANCY Quintana Ot W01.0XXD FALL SAME LEV FROM SLIP/TRIP W/O STRIKE 05/20/2012 Ot 211.3 BENIGN NEOPLASM LG BOWEL 05/20/2012 Ot 562.10 DIVERTICULOSIS COLON (W/O MENT OF HEMORR 05/20/2012 Ot V76.51 SCREEN MAL NEOP-COLON 03/01/2014 Ot 611.72 03/01/2014 Ot V76.12 03/01/2014 Ot 611.72 03/01/2014 Ot V76.12 03/01/2014 Ot V76.12 03/01/2014 Ot 348.89 03/01/2014 Ot 780.93 03/01/2014 Ot 794.09 03/01/2014 Ot 496 03/01/2014 Ot 722.52 03/01/2014 Ot 737.30 03/01/2014 Ot V72.84 03/01/2014 LILLY VARGAS, BILLIE White Ot V76.12 03/01/2014 EDDIE ERWIN DC Ot 722.52 03/01/2014 LILLY VARGAS, BILLIE White Ot V76.12 03/20/2014 Ot 611.72 03/20/2014 Ot V76.12 03/20/2014 Ot 611.72 03/20/2014 Ot V76.12 03/20/2014 Ot V76.12 03/20/2014 Ot 348.89 03/20/2014 Ot 780.93 03/20/2014 Ot 794.09 03/20/2014 Ot 496 03/20/2014 Ot 722.52 03/20/2014 Ot 737.30 03/20/2014 Ot V72.84 03/20/2014 LILLY VARGAS, BILLIE White Ot V76.12 03/20/2014 EDDIE ERWIN DC Ot 722.52 03/20/2014 LILLY VARGAS, BILLIE White Ot V76.12 03/20/2014 LILLY VARGAS, BILLIE White Ot 719.45 03/23/2014 BILLIE CARR MD Ot 719.45 03/29/2014 ALEX VARGAS, SUSAN Cook Ot 726.2 03/29/2014 SUSAN JOHNSON MD Ot V57.1 04/02/2014 LILLY VARGAS, BILLIE White [...] LILLY VARGAS, BILLIE White Ot V76.12 06/20/2014 YAIMA WOOD, EDDIE Salinas Ot 722.52 06/20/2014 LILLY VARGAS, BILLIE White Ot V76.12 06/20/2014 BILLIE CARR MD Ot 719.45 07/06/2014 BELIA VARGAS, MALIKA Hamilton Ot 287.5 07/06/2014 BELIA VARGAS, MALIKA Hamilton Ot 288.50 07/06/2014 BELIA VARGAS, MALIKA Hamilton Ot 790.5 07/06/2014 BELIA VARGAS, MALIKA A Ot 287.5 07/06/2014 BELIA VARGAS, MALIKA A Ot 288.50 07/06/2014 BELIA VARGAS, MALIKA A Ot 790.5 07/06/2014 BELIA VARGAS, MALIKA A Ot 287.5 07/06/2014 BELIA VARGAS, MALIKA A Ot 288.50 07/06/2014 BELIA VARGAS, MALIKA A Ot 790.5 07/06/2014 BELIA VARGAS, MALIKA A Ot 287.5 07/06/2014 BELIA VARGAS, MALIKA A Ot 288.50 07/06/2014 BELIA VARGAS, MALIKA A Ot 790.5 07/09/2014 BELIA VARGAS, MALIKA A Ot 287.5 07/09/2014 BELIA VARGAS, MALIKA A Ot 288.50 07/09/2014 BELIA VARGAS, MALIKA A Ot 790.5 07/13/2014 KRISTIN RODRIGUEZ ROOFING TECHNICIAN Ot 719.07 JOINT EFFUSION-ANKLE 07/13/2014 KRISTIN RODRIGUEZ ROOFING TECHNICIAN Ot 729.81 SWELLING OF LIMB 07/14/2014 BELIA VARGAS, MALIKA Hamilton Ot 276.8 07/14/2014 BELIA VARGAS, MALIKA A Ot 787.03 07/14/2014 BELIA VARGAS, MALIKA A Ot 790.5 07/14/2014 BELIA VARGAS, MALIKA Hamilton Ot V01.79 07/21/2014 EDDIE ERWIN DC Ot 719.45 08/02/2014 JUAN DANIEL JAQUEZ CIVIL DIVISION COMMANDER DEPUTY SHERIFF Ot 276.8 08/02/2014 JUAN DANIEL JAQUEZ CIVIL DIVISION COMMANDER DEPUTY SHERIFF Ot 790.5 08/03/2014 BELIA VARGAS, MALIKA Hamilton Ot 287.5 08/03/2014 BELIA VARGAS, MALIKA A Ot 288.50 08/03/2014 BELIA VARGAS, MALIKA A Ot 790.5 08/08/2014 BELIA VARGAS, MALIKA A Ot 287.5 08/08/2014 BELIA VARGAS, MALIKA A Ot 288.50 08/08/2014 BELIA VARGAS, MALIKA A Ot 790.5 08/10/2014 EDDIE ERWIN DC Ot 719.45 08/16/2014 BELIA VARGAS, MALIKA A Ot 790.5 10/02/2014 BELIA VARGAS, MALIKA A Ot 276.8 10/02/2014 MALIKA CELAYA MD Ot 787.03 10/02/2014 MALIKA CELAYA MD Ot 790.5 10/02/2014 MALIKA CELAYA MD Ot V01.79 10/04/2014 MALIKA CELAYA MD Ot 276.8 HYPOPOTASSEMIA 10/04/2014 MALIKA CELAYA MD Ot 787.03 VOMITING ALONE 10/04/2014 MALIKA CELAYA MD Ot 790.5 ABN SERUM ENZY LEVEL NEC 10/04/2014 MALIKA CELAYA MD Ot V01.79 CONTACT OR EXPOSURE TO OTHER VIRAL DISEA 11/14/2014 JUAN DANIEL JAQUEZ CIVIL DIVISION COMMANDER DEPUTY SHERIFF Ot V76.12 06/20/2015 Ot V76.12 OTH SCREEN MAMMO-MALIGN NEOPLASM OF ALFONSO 06/20/2015 Ot V76.12 OTH SCREEN MAMMO-MALIGN NEOPLASM OF ALFONSO 06/20/2015 Ot 348.89 OTHER CONDITIONS OF BRAIN 06/20/2015 Ot 780.93 MEMORY LOSS 06/20/2015 Ot 794.09 ABN FIRE SAFETY MANAGER FUNCT STUDY NEC 06/20/2015 Ot 496 CHR AIRWAY OBSTRUCT NEC 06/20/2015 Ot 722.52 LUMB/ LUMBOSAC DISC DEGEN 06/20/2015 Ot 737.30 IDIOPATHIC SCOLIOSIS 06/20/2015 Ot V72.84 EXAM PRE- OPERATIVE NOS 06/20/2015 BILLIE CARR MD Ot V76.12 OTH SCREEN MAMMO-MALIGN NEOPLASM OF ALFONSO 06/20/2015 EDDIE ERWIN DC Ot 722.52 LUMB/LUMBOSAC DISC DEGEN 06/20/2015 BILLIE CARR MD Ot V76.12 OTH SCREEN MAMMO-MALIGN NEOPLASM OF ALFONSO 06/20/2015 BILLIE CARR MD Ot 719.45 JOINT PAIN-PELVIS 06/20/2015 EDDIE ERWIN DC Ot 719.45 JOINT PAIN-PELVIS 06/20/2015 MALIKA CELAYA MD Ot 287.5 THROMBOCYTOPENIA NOS 06/20/2015 MALIKA CELAYA MD Ot 288.50 LEUKOCYTOPENIA, UNSPECIFIED 06/20/2015 MALIKA CELAYA MD Ot 790.5 ABN SERUM ENZY LEVEL NEC 06/20/2015 JUAN DANIEL JAQUEZ CIVIL DIVISION COMMANDER DEPUTY SHERIFF Ot 276.8 HYPOPOTASSEMIA 06/20/2015 JUAN DANIEL JAQUEZ CIVIL DIVISION COMMANDER DEPUTY SHERIFF Ot 790.5 ABN SERUM ENZY LEVEL NEC 06/20/2015 MAILKA CELAYA MD Ot 790.5 ABN SERUM ENZY LEVEL NEC 06/20/2015 MALIKA CELAYA MD Ot 276.8 HYPOPOTASSEMIA 06/20/2015 MALIKA CELAYA MD Ot 787.03 VOMITING ALONE 06/20/2015 MALIKA CELAYA MD Ot 790.5 ABN SERUM ENZY LEVEL NEC 06/20/2015 MALIKA CELAYA MD Ot V01.79 CONTACT OR EXPOSURE TO OTHER VIRAL DISEA 06/20/2015 JUAN DANIEL JAQUEZ CIVIL DIVISION COMMANDER DEPUTY SHERIFF Ot V76.12 OTH SCREEN MAMMO-MALIGN NEOPLASM OF ALFONSO 07/11/2015 LAYLA VARNER ROOFING TECHNICIAN Ot R68.84 JAW PAIN 07/23/2015 LAYLA VARNER ROOFING TECHNICIAN Ot R68.84 JAW PAIN 12/17/2015 MALIKA CELAYA MD Ot Z12.31 ENCNTR SCREEN MAMMOGRAM FOR MALIGNANT NE 12/18/2015 MALIKA CELAYA MD Ot Z12.31 ENCNTR SCREEN MAMMOGRAM FOR MALIGNANT NE 12/26/2015 MALIAK CELAYA MD Ot Z12.31 ENCNTR SCREEN MAMMOGRAM FOR MALIGNANT NE 01/19/2016 MALIKA CELAYA MD Ot 287.5 THROMBOCYTOPENIA NOS 01/19/2016 MALIKA CELAYA MD Ot 288.50 LEUKOCYTOPENIA, UNSPECIFIED 01/19/2016 [...] Z12.31 ENCNTR SCREEN MAMMOGRAM FOR MALIGNANT NE 06/14/2017 MALIKA CELAYA MD Ot B96.20 UNSP ESCHERICHIA COLI THE CAUSE OF DI 06/14/2017 MALIKA CELAYA MD Ot D62 ACUTE POSTHEMORRHAGIC ANEMIA 06/14/2017 MALIKA CELAYA MD Ot F32.9 MAJOR DEPRESSIVE DISORDER, SINGLE EPISOD 06/14/2017 MALIKA CELAYA MD Ot I10 ESSENTIAL (PRIMARY) HYPERTENSION 06/14/2017 MALIKA CELAYA MD Ot K58.9 IRRITABLE BOWEL SYNDROME WITHOUT DIARRHE 06/14/2017 MALIKA CELAYA MD Ot K59.00 CONSTIPATION, UNSPECIFIED 06/14/2017 MALIKA CELAYA MD Ot M19.91 PRIMARY OSTEOARTHRITIS, UNSPECIFIED SITE 06/14/2017 MALIKA CELAYA MD Ot 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 06/14/2017 MALIKA CELAYA MD, Ot N39.0 URINARY TRACT INFECTION, SITE NOT SPECIF 06/14/2017 MALIKA CELAYA MD Ot R00.2 PALPITATIONS 06/14/2017 MALIKA CELAYA MD Ot W01.0XXA FALL SAME LEV FROM SLIP/TRIP W/O STRIKE 06/14/2017 MALIKA CELAYA MD Ot Y92.[address] IN [facility] NON-INSTITUT (PRIVATE) 06/14/2017 MALIKA CELAYA MD Ot Z96.642 PRESENCE OF LEFT ARTIFICIAL HIP JOINT 06/17/2017 TARIQ HYDE MD Ot F32.9 MAJOR DEPRESSIVE DISORDER, SINGLE EPISOD 06/17/2017 TARIQ HYDE MD Ot I10 ESSENTIAL (PRIMARY) HYPERTENSION 06/17/2017 TARIQ HYDE MD Ot K58.9 IRRITABLE BOWEL SYNDROME WITHOUT DIARRHE 06/17/2017 TARIQ HYDE MD Ot M19.90 UNSPECIFIED OSTEOARTHRITIS, UNSPECIFIED 06/17/2017 TARIQ HYDE MD Ot 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, R FEMR, 06/17/2017 TARIQ HYDE MD Ot N39.0 URINARY TRACT INFECTION, SITE NOT SPECIF 06/17/2017 TARIQ HYDE MD Ot R29.6 REPEATED FALLS 06/17/2017 TARIQ HYDE MD Ot Z66 DO NOT RESUSCITATE 06/17/2017 TARIQ HYDE MD Ot F32.9 MAJOR DEPRESSIVE DISORDER, SINGLE EPISOD 06/17/2017 HYDE MD, TARIQ E Ot I10 ESSENTIAL (PRIMARY) HYPERTENSION 06/17/2017 TARIQ HYDE MD Ot K58.9 IRRITABLE BOWEL SYNDROME WITHOUT DIARRHE 06/17/2017 TARIQ HYDE MD Ot M19.90 UNSPECIFIED OSTEOARTHRITIS, UNSPECIFIED 06/17/2017 TARIQ HYDE MD Ot 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, R FEMR, 06/17/2017 TARIQ HYDE MD Ot N39.0 URINARY TRACT INFECTION, SITE NOT SPECIF 06/17/2017 TARIQ HYDE MD Ot R29.6 REPEATED FALLS 06/17/2017 TARIQ HYDE MD Ot Z66 DO NOT RESUSCITATE 06/21/2017 TARIQ HYDE MD Ot D64.9 ANEMIA, UNSPECIFIED 06/21/2017 TARIQ HYDE MD Ot E88.09 OTH DISORDERS OF PLASMA-PROTEIN METABOLI 06/21/2017 TARIQ HYDE MD Ot F32.9 MAJOR DEPRESSIVE DISORDER, SINGLE EPISOD 06/21/2017 TARIQ HYDE MD Ot I10 ESSENTIAL (PRIMARY) HYPERTENSION 06/21/2017 TARIQ HYDE MD Ot K58.9 IRRITABLE BOWEL SYNDROME WITHOUT DIARRHE 06/21/2017 TARIQ HYDE MD Ot M19.90 UNSPECIFIED OSTEOARTHRITIS, UNSPECIFIED 06/21/2017 TRAIQ HYDE MD Ot 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, R FEMR, 06/21/2017 TARIQ HYDE MD Ot N39.0 URINARY TRACT INFECTION, SITE NOT SPECIF 06/21/2017 TARIQ HYDE MD Ot R29.6 REPEATED FALLS 06/21/2017 TARIQ HYDE MD Ot Z66 DO NOT RESUSCITATE 07/07/2017 NANCY SHAW MD Ot M25.551 PAIN IN RIGHT HIP 07/07/2017 NANCY SHAW MD Ot S72.91XD UNSP FRACTURE OF RIGHT FEMUR, SUBS FOR C 07/07/2017 NANCY SHAW MD Ot W01.0XXD FALL SAME LEV FROM SLIP/TRIP W/O STRIKE 07/07/2017 NANCY SHAW MD Ot M25.551 PAIN IN RIGHT HIP 07/07/2017 NANCY SHAW MD Ot S72.91XD UNSP FRACTURE OF RIGHT FEMUR, SUBS FOR C 07/07/2017 NANCY SHAW MD Ot W01.0XXD FALL SAME LEV FROM SLIP/TRIP W/O STRIKE 07/07/2017 NANCY SHAW MD Ot M25.551 PAIN IN RIGHT HIP 07/07/2017 NANCY SHAW MD Ot S72.91XD UNSP FRACTURE OF RIGHT FEMUR, SUBS FOR C 07/07/2017 NANCY SHAW MD Ot W01.0XXD FALL SAME LEV FROM SLIP/TRIP W/O STRIKE 08/06/2017 NANCY SHAW MD Ot M25.551 PAIN IN RIGHT HIP 08/06/2017 NANCY SHAW MD Ot S72.91XD UNSP FRACTURE OF RIGHT FEMUR, SUBS FOR C 08/06/2017 NANCY SHAW MD P Ot W01.0XXD FALL SAME LEV FROM SLIP/TRIP W/O STRIKE 10/03/2017 NANCY SHAW MD Ot M25.551 PAIN IN RIGHT HIP 10/03/2017 NANCY SHAW MD Ot S72.91XD UNSP FRACTURE OF RIGHT FEMUR, SUBS FOR C 10/03/2017 NANCY SHAW MD Ot W01.0XXD FALL SAME LEV FROM SLIP/TRIP W/O STRIKE 10/22/2017 NANCY SHAW MD Ot M25.551 PAIN IN RIGHT HIP 10/22/2017 NANCY SHAW MD Ot S72.91XD UNSP FRACTURE OF RIGHT FEMUR, SUBS FOR C 10/22/2017 NANCY SHAW MD P Ot W01.0XXD FALL SAME LEV FROM SLIP/TRIP W/O STRIKE Procedures Code Description Performed By Performed On [id number] REPOSITION R UP FEMUR WITH INTRAMED FIX, 06/11/2017 Results Test Result Range Complete blood count [...] Automated blood platelet mean volume measurement 10.8 [[facility]] 7.4-10.4 Automated blood neutrophils/100 leukocytes 77 % [...] culture - 06/10/17 20:12 Bacterial urine culture [id number] NRG COLONY COUNT >100,000/ML NRG FTX;REPORTABLE SENSITIVITY [...] ABO+Rh group AP NRG Transfusion band number [id number] NRG Blood group antibody screen POSITIVE NRG [...] 11.1 [[facility]] 7.4-10.4 Comprehensive metabolic panel - 04/21/18 06:11 Serum or plasma sodium measurement (moles/volume) [...] plasma albumin measurement (mass/volume) 3.1 g/dL 3.2-4.5 Complete blood count (CBC) with automated white blood cell (WBC) differential - 06/16/17 06:03 Blood leukocytes automated count (number/volume) 6.2 10*3/uL 4.3-11.0 Blood erythrocytes automated count (number/volume) 2.86 10*6/uL 4.35-5.85 Venous blood hemoglobin measurement (mass/volume) 8.7 g/dL 11.5-16.0 Blood hematocrit (volume fraction) 26 % 35-52 Automated erythrocyte mean corpuscular volume 92 [[facility]] 80-99 Automated erythrocyte mean corpuscular hemoglobin (mass per erythrocyte) 30 pg 25-34 Automated erythrocyte mean corpuscular hemoglobin concentration measurement ( mass/volume) 33 g/dL 32-36 Automated erythrocyte distribution width ratio 12.3 % 10.0-14.5 Automated blood platelet count (count/volume) 189 10*3/uL 130-400 Automated blood platelet mean volume measurement 10.0 [[facility]] 7.4-10.4 Automated blood neutrophils/100 leukocytes 71 % 42-75 Automated blood lymphocytes/100 leukocytes 15 % 12-44 Blood monocytes/100 leukocytes 10 % 0-12 Automated blood eosinophils/100 leukocytes 4 % 0-10 Automated blood basophils/100 leukocytes 1 % 0-10 Blood neutrophils automated count (number/volume) 4.4 10*3 1.8-7.8 Blood lymphocytes automated count (number/volume) 0.9 10*3 1.0-4.0 Blood monocytes automated count (number/volume) 0.6 10*3 0.0-1.0 Automated eosinophil count 0.3 10*3/uL 0.0-0.3 Automated blood basophil count (count/volume) 0.0 10*3/uL 0.0-0.1 Comprehensive metabolic panel - 06/16/17 06:03 Serum or plasma sodium measurement (moles/volume) 137 mmol/L 135-145 Serum or plasma potassium measurement (moles/volume) 3.7 mmol/L 3.6-5.0 Serum or plasma chloride measurement (moles/volume) 100 mmol/L 98-107 Carbon dioxide 28 mmol/L 21-32 Serum or plasma anion gap determination (moles/volume) 9 mmol/L 5-14 Serum or plasma urea nitrogen measurement (mass/volume) 16 mg/dL 7-18 Serum or plasma creatinine measurement (mass/volume) 0.63 mg/dL 0.60-1.30 Serum or plasma urea nitrogen/creatinine mass ratio 25 NRG Serum or plasma creatinine measurement with calculation of estimated glomerular filtration rate > NRG Serum or plasma glucose measurement (mass/volume) 83 mg/dL 70-105 Serum or plasma calcium measurement (mass/volume) 8.5 mg/dL 8.5-10.1 Serum or plasma total bilirubin measurement (mass/volume) 0.8 mg/dL 0.1-1.0 Serum or plasma alkaline phosphatase measurement (enzymatic activity/volume) 44 U/L 40-136 Serum or plasma aspartate aminotransferase measurement (enzymatic activity/ volume) 49 U/L 5-34 Serum or plasma alanine aminotransferase measurement (enzymatic activity/volume ) 28 U/L 0-55 Serum or plasma protein measurement (mass/volume) 5.4 g/dL 6.4-8.2 Serum or plasma albumin measurement (mass/volume) 3.1 g/dL 3.2-4.5 Encounters ACCT No. Visit Date/Time Discharge Status Pt. Type Provider Facility Loc./Unit Complaint [id number] 10/22/2017 09:32:00 10/22/2017 17:00:00 DIS Outpatient NANCY SHAW MD [facility] HIP JOINT PAIN, RIGHT; S/P FEMUR FRACTURE [id number] 10/21/2017 09:25:00 10/21/2017 23:59:59 CLS Preadmit MALIKA CELAYA MD [facility] OSTEOPOROSIS [id number] 08/05/2017 15:55:00 08/05/2017 23:59:59 CLS Outpatient NANCY SHAW MD [facility] REH[facility] HIP JOINT PAIN, RIGHT; S/P FEMUR FRACTURE [id number] 06/14/2017 10:00:00 06/21/2017 13:40:00 DIS Inpatient TARIQ HYDE MD [facility] IRF COMMINUTED INTERTROCHANTERIC FX RIGHT HIP [id number] 06/10/2017 20:53:00 06/14/2017 10:20:00 DIS Inpatient MALIKA CELAYA MD [facility] 4TH RIGHT HIP FX, UTI [id number] 01/19/2017 15:37:00 01/19/2017 23:59:59 CLS Outpatient MALIKA CELAYA MD [facility] RAD SCREENING [id number] 12/17/2015 14:24:00 12/17/2015 23:59:59 CLS Outpatient MALIKA CELAYA MD [facility] RAD SCREENING [id number] 06/20/2015 18:02:00 06/20/2015 23:59:59 CLS Outpatient LAYLA VARNER APRN [facility] RAD [id number] 10/25/2014 15:35:00 10/25/2014 23:59:59 CLS Outpatient JUAN DANIEL JAQUEZ [facility] RAD [id number] 10/05/2014 00:11:00 10/05/2014 23:59:59 CLS Preadmit MALIKA CELAYA MD [facility] SURG RCR [id number] 07/06/2014 17:48:00 10/04/2014 00:01:00 DIS Outpatient MALIKA CELAYA MD [facility] SURG RCR [id number] 07/13/2014 16:55:00 07/13/2014 19:23:00 DIS Emergency KRISTIN RODRIGUEZ ROOFING TECHNICIAN [facility] ER [id number] 07/12/2014 16:40:00 07/12/2014 23:59:59 CLS Outpatient MALIKA CELAYA MD [facility] LAB [id number] 07/09/2014 08:29:00 07/09/2014 23:59:59 CLS Outpatient JUAN DANIEL JAQUEZ [facility] LAB [id number] 07/06/2014 08:45:00 07/06/2014 23:59:59 CLS Outpatient MALIKA CELAYA MD [facility] LAB DECREASED WBC PLATELETS, ELEVATED LIVER ENZYMES [id number] 06/20/2014 16:29:00 06/20/2014 23:59:59 CLS Outpatient EDDIE ERWIN DC [facility] RAD [id number] 05/09/2014 16:30:00 05/17/2014 09:51:00 DIS Outpatient SUSAN JOHNSON MD [facility] RE[facility] [id number] 03/01/2014 13:44:00 03/01/2014 23:59:59 CLS Outpatient BILLIE CARR MD [facility] RAD [id number] 08/29/2013 15:36:00 08/29/2013 23:59:59 CLS Outpatient BILLIE CARR MD [facility] RAD [id number] 06/14/2013 17:12:00 06/14/2013 23:59:59 CLS Outpatient EDDIE ERWIN DC [facility] RAD [id number] 08/15/2012 15:31:00 08/15/2012 23:59:59 CLS Outpatient BILLIE CARR MD [facility] RAD [id number] 11/23/2017 10:45:00 PEN Preadmit JUSTYNA ZALDIVAR DO [facility] ENDO SCREENING/HX POLYPS [id number] 05/20/2012 08:39:00 Document Registration [id number] 05/18/2012 08:02:00 Document Registration [id number] 05/05/2012 16:17:00 Document Registration [id number] 01/21/2012 16:12:00 Document Registration [id number] 10/22/2011 14:49:00 Document Registration [id number] 10/21/2011 10:10:00 Document Registration [id number] 07/30/2011 11:13:00 Document Registration [id number] 06/27/2010 11:01:00 Document Registration [id number] 06/12/2009 10:43:00 Document Registration [id number] 06/06/2009 11:08:00 Document Registration
[2017-11-23 10:19] VITALS: BP 128/73
[2017-11-23] MEDS ORDERED: PROPOFOL INJECTION 50 ML IV ONE (10:30)
[2017-11-23] MEDS ORDERED: MIDAZOLAM 2 MG/2 ML (VERSED) VIAL ONE (10:30)
[2017-11-23] MEDS ORDERED: proPOfol 200 MG/20 ML (DIPRIVAN) VIAL IV ONE (11:10)
--- NOTE | 2017-11-23 11:35 | Progress Note-Post Operative ---
Post-Operative Progess Note Surgeon (s)/City Magistrate (s) Surgeon JUSTYNA ZALDIVAR DO City Magistrate: na Pre-Operative Diagnosis history polyps Post-Operative Diagnosis colon polyps Procedure & Operative Findings Date of Procedure 11/23/17 Procedure Performed/Findings colonoscopy c hot bx polypectomy x 3 Anesthesia Type per well logging mud analysis captain Estimated Blood Loss Estimated blood loss (mL): min Specimens/Packing Specimens Removed ascending colon polyp, sigmoid colon polyp JUSTYNA ZALDIVAR DO Nov 23, 2017 11:35
--- NOTE | 2017-11-23 11:37 | Discharge Inst-Simple/Standard ---
Discharge Inst-Standard Discharge Medications New, Converted or Re-Newed RX: RX on Chart Patient Instructions/Follow Up Plan of Care/Instructions/FU: 2 weeks Chapo Activity as Tolerated: Yes Discharge Diet: Regular Diet JUSTYNA ZALDIVAR DO Nov 23, 2017 11:37
[2017-11-23 11:55] VITALS: BP 121/72
[2017-11-23 12:25] VITALS: BP 116/70
[2017-11-23 12:45] VITALS: BP 116/70
--- NOTE | 2017-11-23 14:19 | Anesthesia-General Post-Op ---
MAC Patient Condition Mental Status/LOC: Same as Preop Cardiovascular: Satisfactory Nausea/Vomiting: Absent Respiratory: Satisfactory Pain: Controlled Complications: Absent Post Op Complications Complications None Follow Up Care/Instructions Patient Instructions None needed. Anesthesiology Discharge Order Discharge Order Patient is doing well, no complaints, stable vital signs, no apparent adverse anesthesia problems. No complications reported per nursing. RAYSA ERAZO CRNA Nov 23, 2017 14:19
--- NOTE | 2017-11-23 14:35 | OPERATIVE REPORT ---
DATE OF SERVICE: 11/23/2017 PREOPERATIVE DIAGNOSIS: History of colon polyps. POSTOPERATIVE DIAGNOSIS: Colon polyps. PROCEDURE: Colonoscopy with hot biopsy polypectomy x3. SURGEON: Justyna Cowan DO ANESTHESIA: Per MANAGER CAMP. ESTIMATED BLOOD LOSS: Minimal. COMPLICATIONS: None. INDICATIONS: The patient is a 77-year-old female with history of colon polyps. She understands risks and benefits of procedure and wished to proceed with procedure. Consent was signed on the chart. DESCRIPTION OF PROCEDURE: The patient was taken to the endoscopy suite, placed in left lateral recumbent position. Timeout was performed. Digital rectal exam was performed. There were no palpable polyps, masses or ulcerations. The scope was inserted in the rectum and advanced all the way to the cecum with minimal difficulty. The terminal ileum was intubated. Scope was slowly retracted back. There were no polyps, masses or ulcerations within the cecum. In the ascending, there were two small polyps, which hot biopsy polypectomy was performed. Scope was continued to be slowly retracted back. There were no polyps, masses or ulcerations within the transverse, descending colon. Within the sigmoid colon, there was a small polyp, which hot biopsy polypectomy was performed. Scope was continued to be slowly retracted back into the rectum where it was attempted to be retroflexed, but it was too narrow. Therefore, multiple insertions and retractions were performed noting no other pathology. Scope was then slowly retracted back till completely removed. The patient tolerated the procedure well without any complications. She was taken to the recovery room in stable condition. RECOMMENDATIONS: The patient will need repeat colonoscopy in 5 years. If she has any problems prior to that, she should be reevaluated at that time. The patient will have followup in 2 weeks to discuss pathology results. Job ID: [id number] DocumentID: [id number] Dictated Date: 11/23/2017 11:42:14 Supervising Floorperson Date: 11/23/2017 14:35:19 Dictated By: JUSTYNA COWAN DO
== END 2017-11-23 12:45 | disposition home or self-care (01) ==
LOC: ENDO 09:19
PROVIDERS: ATTEND Surgery
DX: Z12.11 Encounter for screening for malignant neoplasm of colon (principal); D12.2 Benign neoplasm of ascending colon; D12.5 Benign neoplasm of sigmoid colon; I25.10 Atherosclerotic heart disease of native coronary artery without angina pectoris; I25.2 Old myocardial infarction; R00.2 Palpitations; F41.9 Anxiety disorder, unspecified; F32.9 Major depressive disorder, single episode, unspecified; M81.0 Age-related osteoporosis without current pathological fracture; Z96.642 Presence of left artificial hip joint

== ENCOUNTER 2018-04-26 05:53 | Outpatient (CLI) | payer MEDICARE ==
[~2018-04-26] VITALS: Ht 157.5 cm; Wt 46.3 kg
[~2018-04-26 05:53] MED LIST changes: -IBAN150T PO; +IBAN150T16 PO
[2018-04-26] MEDS ORDERED: FISH1CAP15 PO (13:27)
[2018-04-26] MEDS ORDERED: MV-M1TAB55 PO (13:27)
[2018-04-26] MEDS ORDERED: GARL500T4 PO (13:27)
[2018-04-26] MEDS ORDERED: ASCO500C17 PO (13:27)
== END 2018-04-26 13:47 | disposition home or self-care (01) ==
LOC: PREOP 05:53
PROVIDERS: ATTEND Podiatrist Foot & Ankle Surgery
DX: Z01.818 Encounter for other preprocedural examination (principal)

== ENCOUNTER 2018-05-02 06:03 | Day surgery (SDC) | payer MEDICARE ==
[~2018-05-02] VITALS: Ht 157.5 cm; Wt 46.3 kg
[~2018-05-02 06:03] MED LIST changes: +ASCO500C17 PO; +FISH1CAP15 PO; +GARL500T4 PO; +MV-M1TAB55 PO
[2018-05-02] MEDS ORDERED: LACTATED RINGERS 1,000 ML IV PRN (06:11)
[2018-05-02] MEDS ORDERED: VANCOMYCIN INJECTION 1,000 MG in NS (IVPB) 250 ML IV SCH (06:15)
[2018-05-02 06:20] VITALS: BP 136/76
[2018-05-02] MEDS ORDERED: ONDANSETRON 4 MG/2 ML (SDV) Z0FRAN IV ONE (06:45)
[2018-05-02] MEDS ORDERED: FAMOTIDINE 20MG/2ML IV (PEPCID) IV ONE (06:45)
[2018-05-02] MEDS ORDERED: proPOfol 200 MG/20 ML (DIPRIVAN) VIAL IV ONE (07:14)
[2018-05-02] MEDS ORDERED: SEVOFLURANE (ULTANE) 15 ML INHAL SOLN ONE (07:14)
[2018-05-02] MEDS ORDERED: fentaNYL INJECTION 100 MCG/2 ML AMP ONE (07:14)
[2018-05-02] MEDS ORDERED: ONDANSETRON 4 MG/2 ML (SDV) Z0FRAN ONE (07:14)
[2018-05-02] MEDS ORDERED: DEXAMETHASONE 10 MG/ML (DECADRON) 1 ML VIAL ONE (07:14)
[2018-05-02] MEDS ORDERED: BUPIVACAINE 0.5% 30 ML (SENSORCAINE) VIAL ONE (07:15)
[2018-05-02] MEDS ORDERED: LIDOCAINE 1% INJ 20 ML 20 ML VIAL ONE (07:15)
--- NOTE | 2018-05-02 07:41 | Progress Note-Pre Operative ---
Pre-Operative Progress Note H&P Reviewed The H&P was reviewed, patient examined and no changes noted. 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
[2018-05-02] MEDS ORDERED: LACTATED RINGERS 1,000 ML IV SCH (08:32)
--- NOTE | 2018-05-02 08:32 | Progress Note-Post Operative ---
Post-Operative Progess Note Surgeon (s)/Utility Worker Production (s) Surgeon JOHN GUADARRAMA DPM Utility Worker Production: none Pre-Operative Diagnosis Hammertoe right 4th Post-Operative Diagnosis same Procedure & Operative Findings Date of Procedure 05/02/18 Procedure Performed/Findings Partial amputation of the right 4th toe Anesthesia Type MAC Estimated Blood Loss Estimated blood loss (mL): minimal Specimens/Packing Specimens Removed Distal right 4th toe JOHN GUADARRAMA DPM May 02, 2018 08:32
[2018-05-02] MEDS ORDERED: ACHD5005 PO (08:36)
[2018-05-02] MEDS ORDERED: HYDROcodone/APAP 5 MG/325 MG (LORTAB) TAB PO PRN (08:45)
[2018-05-02 09:00] VITALS: BP_SYST 126; BP_SYST 136; BP_DIAS 64; BP_DIAS 76
[2018-05-02 09:30] VITALS: BP 122/66
[2018-05-02] MEDS ORDERED: ONDANSETRON 4 MG (ZOFRAN) ORAL DISSOLVE TAB PO ONE (10:00)
--- NOTE | 2018-05-02 10:09 | Diagnostic Imaging Report ---
INDICATION: Postop right foot. FINDINGS: Two views of the right foot demonstrate amputation of the middle and distal phalanx of the fourth toe. There are postop changes of the distal first metatarsal as well as the proximal phalanx of the great toe. No fractures are seen. The midfoot and hindfoot are unremarkable. IMPRESSION: Postop changes. Dictated by: Dictated on workstation # [id number]
--- NOTE | 2018-05-02 12:04 | Anesthesia-General Post-Op ---
MAC Patient Condition Mental Status/LOC: Same as Preop Cardiovascular: Satisfactory Nausea/Vomiting: Absent Respiratory: Satisfactory Pain: Controlled Complications: Absent Post Op Complications Complications None Follow Up Care/Instructions Patient Instructions None needed. Anesthesiology Discharge Order Discharge Order Patient is doing well, no complaints, stable vital signs, no apparent adverse anesthesia problems. No complications reported per nursing. HANNAH CASAREZ CRNA May 02, 2018 12:03
--- NOTE | 2018-05-02 16:17 | OPERATIVE REPORT ---
DATE OF SERVICE: 05/02/2018 SURGEON: Gilma Guadarrama DPM PREOPERATIVE DIAGNOSIS: Hammer digit syndrome, right fourth toe. POSTOPERATIVE DIAGNOSIS: Hammer digit syndrome, right fourth toe. PROCEDURE: Partial amputation of right fourth toe. WOUND CLASS: Clean. ANESTHESIA: Monitored anesthesia care. HEMOSTASIS: Pneumatic ankle tourniquet at 250 mmHg. INDICATION: This 77-year-old female presents complaining of a painful right fourth toe, which underlaps the third digit and causes pain with ambulation and shoe gear. Conservative therapy is met with unsatisfactory results and the patient is agreeable to surgical intervention after risks and complications were discussed at length. No guarantees were extended to the patient and she is willing to proceed. DESCRIPTION OF PROCEDURE: The patient was brought back to the operating table, placed in secure supine position. The appropriate time out was performed. The right fourth digit was prepped with alcohol after which local anesthetic was administered utilizing 11 mL of 0.5% Marcaine and 1% Xylocaine injected in a digital block and a proximal metatarsal block to the right fourth ray. The right foot was then prepped and draped in normal sterile manic manner after an ankle tourniquet was applied. The right foot was then elevated and allowed to exsanguinate after which the tourniquet was inflated to 250 mmHg. Attention was then directed to the proximal interphalangeal area of the right fourth digit where two curvilinear incisions were created. The first was from medial to the dorsal and into the lateral aspect of the proximal interphalangeal joint area and the next was from the same starting point extending distally and plantarly underneath the middle phalanx, curling back around to the original starting point of the lateral aspect of the proximal interphalangeal joint, allowing for a long plantar flap. The digit was then disarticulated at the proximal interphalangeal joint. The extensor and flexor tendons were cut as proximally as possible. A rongeur was utilized to reduce the head of the proximal phalanx. A hand rasp was then utilized to smooth the remaining bony prominences. The wound was flushed with copious amounts of normal saline and closure was then performed. The tourniquet was released and no active bleeders were identified. The plantar flap was then sutured to the dorsal portion of the incision without any skin tension utilizing simple interrupted type stitch with a 4-0 Prolene. Excellent coaptation of the skin was noted at this time. Postoperative dressing consisted of Betadine soaked Adaptic, sterile 4 x 4, sterile Kerlix, all secured with a Coban wrap. The patient tolerated the anesthesia and procedure well, was transported from the operating room to the recovery area with vital signs stable and vascular status intact to all digits of the right foot. She is to be partial weightbearing in the right lower extremity and follow up in my office in 10 days' period of time or sooner if necessary. She was given a prescription for hydrocodone postoperatively. Job ID: [id number] DocumentID: [id number] Dictated Date: 05/02/2018 08:40:52 Director Veterinary Date: 05/02/2018 16:16:05 Dictated By: GILMA GUADARRAMA DPM
== END 2018-05-02 10:06 | disposition home or self-care (01) ==
LOC: SDC 06:03
PROVIDERS: ATTEND Podiatrist Foot & Ankle Surgery
DX: M20.41 Other hammer toe(s) (acquired), right foot (principal); M81.0 Age-related osteoporosis without current pathological fracture; F41.9 Anxiety disorder, unspecified; F32.9 Major depressive disorder, single episode, unspecified; K59.09 Other constipation; Z79.899 Other long term (current) drug therapy
CPT/HCPCS: 73620; 87081

== ENCOUNTER → 2018-05-31 | Outpatient (CLI) | payer MEDICARE ==
[~2018-05-31] VITALS: Ht 157.5 cm; Wt 46.3 kg
[~2018-05-31] MED LIST changes: +ACHD5005 PO; +DENOSUMAB 60 MG/1 ML (PROLIA) SQ SCH
[2018-05-31 14:58] VITALS: BP 122/66
== END ==
LOC: SDC 14:29
PROVIDERS: ATTEND Nurse Practitioner Family
DX: M81.0 Age-related osteoporosis without current pathological fracture (principal)
CPT/HCPCS: 96372

== ENCOUNTER → 2018-05-31 | Outpatient (CLI) | payer MEDICARE ==
[~2018-05-31] MED LIST changes: -DENOSUMAB 60 MG/1 ML (PROLIA) SQ SCH
--- NOTE | 2018-06-01 12:11 | Diagnostic Imaging Report ---
EXAMINATION: Digital mammogram bilateral screening with 3D tomosynthesis and CAD. INDICATION: Screening. This study was compared to the prior exams of 03/21/2016, 12/17/2015 and 10/25/2014. At this time there are no current complaints. The fibroglandular tissue in both breasts is heterogeneously dense. This does limit the sensitivity of this exam. On the MLO view of the left breast just anterior to the pectoralis muscle there is a small 5 MM density. This finding cannot be identified on the CC or XCC views but seems to persist on the tomographic images. This density may merely be secondary to fibroglandular tissue alone. Even so, I would recommend that a compression view of this area be obtained in the MLO projection for further study. A true lateral view should also be obtained. If this density persists, then ultrasound may be necessary as well. The right breast is stable. IMPRESSION: Additional mammographic views of the left breast would recommend for further study. Ultrasound may also be necessary. ACR BI-RADS Category 0: Incomplete. (Needs additional imaging evaluation). Result letter will be mailed to the patient. Note: At least 10% of breast cancer is not imaged by mammography. Dictated by: Dictated on workstation # [id number]
== END ==
LOC: RAD 15:36
PROVIDERS: ATTEND Nurse Practitioner Family
DX: Z12.31 Encounter for screening mammogram for malignant neoplasm of breast (principal)
CPT/HCPCS: 77067

== ENCOUNTER → 2018-06-22 | Outpatient (CLI) | payer MEDICARE ==
--- NOTE | 2018-06-22 11:37 | Diagnostic Imaging Report ---
INDICATION: Abnormal screening mammogram. COMPARISON: 05/31/2018. TECHNIQUE: A true lateral view and spot compression views of the left breast were obtained. The current study was evaluated with a Computer Aided Detection (CAD) system. FINDINGS: The previously described density in the axillary region of the left breast appears to be superimposed fibroglandular tissue. There is no discrete mass, spiculated lesion, or suspicious calcification identified. IMPRESSION: Benign findings. ACR BI-RADS Category 2: Benign findings. Result letter will be mailed to the patient. Note: At least 10% of breast cancer is not imaged by mammography. Dictated by: Dictated on workstation # [id number]
== END ==
LOC: RAD 08:07
PROVIDERS: ATTEND Nurse Practitioner Family
DX: R92.2 Inconclusive mammogram (principal)

== ENCOUNTER → 2018-11-29 | Outpatient (CLI) | payer MEDICARE ==
[~2018-11-29] VITALS: Ht 157 cm; Wt 68.0 kg
[~2018-11-29] MED LIST changes: +DENOSUMAB 60 MG/1 ML (PROLIA) SQ SCH
[2018-11-29 09:20] VITALS: BP 104/64
== END ==
LOC: SDC 08:47
PROVIDERS: ATTEND Nurse Practitioner Family
DX: M81.0 Age-related osteoporosis without current pathological fracture (principal)
CPT/HCPCS: 96372

== ENCOUNTER → 2019-05-02 | Outpatient (CLI) | payer MEDICARE ==
[~2019-05-02] MED LIST changes: -DENOSUMAB 60 MG/1 ML (PROLIA) SQ SCH
--- NOTE | 2019-05-02 16:33 | Diagnostic Imaging Report ---
INDICATION: Postmenopausal state, screening for osteoporosis COMPARISON: None available FINDINGS: AP Spine L1-L4: [BMD (g/cm2): 0.920] [T-Score: -2.3] [Z-Score: 0.1] [BMD Previous: ] [BMD % Change: ] T score within the radius 33% is - 4.4. T score with total radius is - 5.0. *Indicates significant change from prior examination based on 95% confidence level. World Health Organization criteria for BMD interpretation classify patients as Normal (T-score at or above -1.0), Osteopenic (T-score between -1.0 and -2.5) or Osteoporotic (T-score at or below -2.5). LIMITATIONS AND MODIFICATION: The bilateral hips were not evaluated secondary to postsurgical changes. Therefore, the right forearm was evaluated IMPRESSION: 1. Osteoporosis. 2. Baseline examination. 3. See below National Osteoporosis Foundation guidelines on when to potentially initiate pharmacologic therapy. Based on the National Osteoporosis Foundation Guidelines, pharmacologic treatment should be initiated in any of the following, unless clinical conditions suggest otherwise: * Any patient with prior fragility fracture of the hip or vertebrae. A spine fracture indicates 5X risk for subsequent spine fracture and 2X risk for subsequent hip fracture. * Osteoporosis (T-score <-2.5). * Postmenopausal women and men age 50 and older with low bone mass/osteopenia (T-score between -1.0 and -2.5) by DXA and 10-year major osteoporotic fracture greater than 20% or a 10-year probability of hip fracture greater than 3%. These fracture risks are supplied above in the FRAX score, if applicable. * Clinician judgement and/or patient preferences may indicate treatment for people with 10-year fracture probabilities above or below these levels. Dictated by: Dictated on workstation # [id number]
== END ==
LOC: RAD 13:59
PROVIDERS: ATTEND Nurse Practitioner Family
DX: Z13.820 Encounter for screening for osteoporosis (principal); M81.0 Age-related osteoporosis without current pathological fracture; Z78.0 Asymptomatic menopausal state
CPT/HCPCS: 77080

== ENCOUNTER → 2019-07-10 | Outpatient (CLI) | payer MEDICARE ==
[~2019-07-10] MED LIST changes: +DENOSUMAB 60 MG/1 ML (PROLIA) SQ SCH
[2019-07-10 08:27] VITALS: BP 121/64
== END ==
LOC: SDC 08:02
PROVIDERS: ATTEND Nurse Practitioner Family
DX: M81.0 Age-related osteoporosis without current pathological fracture (principal)
CPT/HCPCS: 96372

== ENCOUNTER → 2019-10-16 | Outpatient (CLI) | payer MEDICARE ==
[~2019-10-16] MED LIST changes: -DENOSUMAB 60 MG/1 ML (PROLIA) SQ SCH
--- NOTE | 2019-10-17 12:35 | Diagnostic Imaging Report ---
INDICATION: Routine screening. COMPARISON: 05/31/2018 and 01/19/2017. TECHNIQUE: 2D and 3D bilateral screening mammography was performed with CAD. FINDINGS: Both breasts remain heterogeneously dense, limiting the sensitivity of mammography. The parenchymal pattern is stable. No dominant mass or malignant appearing microcalcifications are seen. The axillae are unremarkable. IMPRESSION: No mammographic features suspicious for malignancy are identified. ACR BI-RADS Category 1: Negative. Result letter will be mailed to the patient. Note: At least 10% of breast cancer is not imaged by mammography. Dictated by: Dictated on workstation # [id number]
== END ==
LOC: RAD 15:45
PROVIDERS: ATTEND Nurse Practitioner Family
DX: Z12.31 Encounter for screening mammogram for malignant neoplasm of breast (principal)
CPT/HCPCS: 77063; 77067

== ENCOUNTER 2020-01-15 07:52 | Outpatient (CLI) | payer MEDICARE ==
[2020-01-15] MEDS ORDERED: DENOSUMAB 60 MG/1 ML (PROLIA) SQ ONE (08:15)
[2020-01-15 08:16] VITALS: BP 117/70
== END 2020-01-15 08:38 | disposition home or self-care (01) ==
LOC: SDC 07:52
PROVIDERS: ATTEND Nurse Practitioner Family
DX: M81.0 Age-related osteoporosis without current pathological fracture (principal)
CPT/HCPCS: 96372

== ENCOUNTER 2020-07-15 08:30 | Outpatient (CLI) | payer MEDICARE ==
[~2020-07-15] VITALS: Ht 157 cm
[~2020-07-15 08:30] MED LIST changes: -CIPR500T4 PO; +CIPR500T5 PO; -OXYC-471 PO; +OXYC1TAB11 PO
[2020-07-15] MEDS ORDERED: DENOSUMAB 60 MG/1 ML (PROLIA) SQ SCH (09:15)
[2020-07-15 09:25] VITALS: BP 119/65
== END 2020-07-15 09:25 | disposition home or self-care (01) ==
LOC: SDC 08:30
PROVIDERS: ATTEND Nurse Practitioner Family
DX: M81.0 Age-related osteoporosis without current pathological fracture (principal)
CPT/HCPCS: 96372

== ENCOUNTER → 2020-10-16 | Outpatient (CLI) | payer MEDICARE ==
[~2020-10-16] MED LIST changes: -SULF1TAB35 PO; +SULF1TAB38 PO
--- NOTE | 2020-10-16 09:33 | Diagnostic Imaging Report ---
Indication: Routine screening. Comparison is made with prior mammogram from 10/16/2019 and 05/31/2018. 2-D and 3-D bilateral screening mammography was performed with CAD. Both breast are heterogeneously dense, limiting the sensitivity of mammography. No mass or malignant-appearing microcalcifications are seen. Axillae are unremarkable. IMPRESSION: BI-RADS Category 1 No mammographic features suspicious for malignancy are identified. ACR BI-RADS Category 1: Negative. Result letter will be mailed to the patient. Note: At least 10% of breast cancer is not imaged by mammography. Dictated by: Dictated on workstation # [id number]
== END ==
LOC: RAD 07:45
PROVIDERS: ATTEND Nurse Practitioner Family
DX: Z12.31 Encounter for screening mammogram for malignant neoplasm of breast (principal)
CPT/HCPCS: 77063; 77067

== ENCOUNTER → 2021-01-23 | Outpatient (CLI) | payer MEDICARE ==
[~2021-01-23] MED LIST changes: +DENOSUMAB 60 MG/1 ML (PROLIA) SQ SCH
[2021-01-23 08:00] VITALS: BP 140/69
== END ==
LOC: SDC 07:54
PROVIDERS: ATTEND Nurse Practitioner Family
DX: M81.0 Age-related osteoporosis without current pathological fracture (principal)
CPT/HCPCS: 96372

== ENCOUNTER → 2021-05-06 | Outpatient (CLI) | payer MEDICARE ==
[~2021-05-06] MED LIST changes: -DENOSUMAB 60 MG/1 ML (PROLIA) SQ SCH
--- NOTE | 2021-05-06 10:57 | Diagnostic Imaging Report ---
INDICATION: Postmenopausal. COMPARISON: 05/02/2019. FINDINGS: The bone mineral density of the spine, radius, and ulna was measured. The T score for the spine is -1.1. On the prior exam, the T score was -2.3. The T score for the radius and ulna is -4.2. Previously, the T score was -1.4. AP Spine L1-L4: [BMD (g/cm2): 1.065] [T-Score: -1.1] [Z-Score: 1.4] [BMD Previous: 0.920] [BMD % Change: 15.8] LT Hip Neck: [BMD (g/cm2): NA] [T-Score: NA] [Z-Score: NA] LT Hip Total: [BMD (g/cm2):NA] [T-Score:NA] [Z-Score: NA] [BMD Previous: NA] [BMD % Change: NA] RT Hip Neck: [BMD (g/cm2):NA] [T-Score:NA] [Z-Score:NA] RT Hip Total: [BMD (g/cm2):NA] [T-score:NA] [Z-Score:NA] [BMD Previous:NA] [BMD % Change:NA] *Indicates significant change from prior examination based on 95% confidence level. World Health Organization criteria for BMD interpretation classify patients as Normal (T-score at or above -1.0), Osteopenic (T-score between -1.0 and -2.5) or Osteoporotic (T-score at or below -2.5). LIMITATIONS AND MODIFICATION: None. FRACTURE RISK (FRAX SCORE): The ten year probability of (%): Major Osteoporotic Fracture: [NA] Hip Fracture: [NA] IMPRESSION: 1. There has been an increase in the bone mineral density of the spine and the T score value now indicates only mild osteopenia. 2. The T score for the radius and ulna is also minimally improved when compared to the prior study; however, the T score continues to indicate severe osteoporosis. 3. See below National Osteoporosis Foundation guidelines on when to potentially initiate pharmacologic therapy. Based on the National Osteoporosis Foundation Guidelines, pharmacologic treatment should be initiated in any of the following, unless clinical conditions suggest otherwise: * Any patient with prior fragility fracture of the hip or vertebrae. A spine fracture indicates 5X risk for subsequent spine fracture and 2X risk for subsequent hip fracture. * Osteoporosis (T-score <-2.5). * Postmenopausal women and men age 50 and older with low bone mass/osteopenia (T-score between -1.0 and -2.5) by DXA and 10-year major osteoporotic fracture greater than 20% or a 10-year probability of hip fracture greater than 3%. These fracture risks are supplied above in the FRAX score, if applicable. * Clinician judgement and/or patient preferences may indicate treatment for people with 10-year fracture probabilities above or below these levels. Dictated by: Dictated on workstation # [id number]
== END ==
LOC: RAD 09:30
PROVIDERS: ATTEND Nurse Practitioner Family
DX: M81.0 Age-related osteoporosis without current pathological fracture (principal); Z79.899 Other long term (current) drug therapy
CPT/HCPCS: 77080

== ENCOUNTER → 2021-10-28 | Outpatient (CLI) | payer MEDICARE ==
--- NOTE | 2021-10-28 11:16 | Diagnostic Imaging Report ---
INDICATION: Routine screening. Comparison is made with prior mammograms of 10/16/2020 and 10/16/2019. 2-D and 3-D bilateral screening mammography was performed with CAD. Both breasts are heterogeneously dense, limiting the sensitivity of mammography. No mass or malignant-appearing microcalcifications are seen. Axillae are unremarkable. IMPRESSION: No mammographic features suspicious for malignancy are identified. ACR BI-RADS Category 1: Negative. Result letter will be mailed to the patient. Note: At least 10% of breast cancer is not imaged by mammography. BI-RADS Category 1 Dictated by: Dictated on workstation # [id number]
== END ==
LOC: RAD 09:08
PROVIDERS: ATTEND Family Medicine
DX: Z12.31 Encounter for screening mammogram for malignant neoplasm of breast (principal)
CPT/HCPCS: 77063; 77067

== ENCOUNTER → 2021-11-20 | Outpatient (CLI) | payer MEDICARE ==
[~2021-11-20] VITALS: Ht 160 cm; Wt 43.5 kg
[~2021-11-20] MED LIST changes: +DENOSUMAB 60 MG/1 ML (PROLIA) SQ ONE
[2021-11-20 12:17] VITALS: BP 98/63
== END ==
LOC: SDC 11:56
PROVIDERS: ATTEND Family Medicine
DX: M81.0 Age-related osteoporosis without current pathological fracture (principal)
CPT/HCPCS: 96372

== ENCOUNTER → 2022-05-21 | Outpatient (CLI) | payer MEDICARE ==
[~2022-05-21] VITALS: Ht 160 cm; Wt 45.4 kg
[2022-05-21 13:58] VITALS: BP 109/59
== END ==
LOC: SDC 13:27
PROVIDERS: ATTEND Family Medicine
DX: M81.0 Age-related osteoporosis without current pathological fracture (principal)
CPT/HCPCS: 96372

== ENCOUNTER → 2022-11-27 | Outpatient (CLI) | payer MEDICARE ==
[~2022-11-27] MED LIST changes: -DENOSUMAB 60 MG/1 ML (PROLIA) SQ ONE
--- NOTE | 2022-11-27 09:55 | Diagnostic Imaging Report ---
INDICATION: Routine screening. Comparison is made with prior mammogram from 10/28/2021 and 10/16/2020. 2-D and 3-D bilateral screening mammography was performed with CAD. Both breasts are heterogeneously dense, limiting the sensitivity of mammography. The parenchymal pattern is stable. No mass or malignant-appearing microcalcifications are seen. Axillae are unremarkable. IMPRESSION: No mammographic features suspicious for malignancy are identified. ACR BI-RADS Category 1: Negative. Result letter will be mailed to the patient. Note: At least 10% of breast cancer is not imaged by mammography. BI-RADS Category 1 Dictated by: Dictated on workstation # [id number]
== END ==
LOC: RAD 07:42
PROVIDERS: ATTEND Family Medicine
DX: Z12.31 Encounter for screening mammogram for malignant neoplasm of breast (principal)
CPT/HCPCS: 77063; 77067

== ENCOUNTER 2022-12-02 05:44 | Outpatient (CLI) | payer MEDICARE ==
[~2022-12-02] VITALS: Ht 160 cm; Wt 45.4 kg
[2022-12-02] MEDS ORDERED: LISI5TAB20 PO (15:37)
== END 2022-12-02 15:49 | disposition home or self-care (01) ==
LOC: PREOP 05:44
PROVIDERS: ATTEND Surgery
DX: Z01.818 Encounter for other preprocedural examination (principal)

== ENCOUNTER 2022-12-15 09:28 | Day surgery (SDC) | payer MEDICARE ==
[~2022-12-15] VITALS: Ht 160 cm; Wt 45.4 kg
[~2022-12-15 09:28] MED LIST changes: +LISI5TAB20 PO
[2022-12-15] MEDS ORDERED: LACTATED RINGERS 1,000 ML 1,000 ML IV STA (09:41)
--- NOTE | 2022-12-15 10:11 | Progress Note-Pre Operative ---
Pre-Operative Progress Note Date H&P Reviewed: Dec 15, 2022 Time H&P Reviewed: 10:10 History & Physical: H&P Reviewed Pre-Operative Diagnosis: Hx of polyps JUSTYNA ZALDIVAR DO Dec 15, 2022 10:11
[2022-12-15 10:28] VITALS: BP 131/76
[2022-12-15 10:55] VITALS: BP_SYST 131; BP_SYST 95; BP_DIAS 52; BP_DIAS 76
--- NOTE | 2022-12-15 10:56 | Progress Note-Post Operative ---
Post-Operative Progess Note Surgeon (s)/Airplane Pilot Commercial (s) Surgeon JUSTYNA ZALDIVAR DO Airplane Pilot Commercial: n/a Pre-Operative Diagnosis Hx of polyps Post-Operative Diagnosis Poor colon prep, Internal hemorrhoid vs small neoplasm Procedure & Operative Findings Date of Procedure 12/15/22 Procedure Performed/Findings Flex sigmoidoscopy Anesthesia Type per DO Estimated Blood Loss Estimated blood loss (mL): none Specimens/Packing Specimens Removed none JUSTYNA ZALDIVAR DO Dec 15, 2022 10:56
--- NOTE | 2022-12-15 10:58 | Discharge Inst-Simple/Standard ---
Discharge Inst-Standard Patient Instructions/Follow Up Plan of Care/Instructions/FU: Chapo 2 weeks Activity as Tolerated: Yes Discharge Diet: Regular Diet JUSTYNA ZALDIVAR DO Dec 15, 2022 10:58
[2022-12-15 11:50] VITALS: BP 95/52
--- NOTE | 2022-12-15 13:39 | Anesthesia-General Post-Op ---
MAC Patient Condition Mental Status/LOC: Same as Preop Cardiovascular: Satisfactory Nausea/Vomiting: Absent Respiratory: Satisfactory Pain: Controlled Complications: Absent Post Op Complications Complications None Follow Up Care/Instructions Patient Instructions None needed. Anesthesiology Discharge Order Discharge Order Patient was doing well this morning after the procedure with no complaints, stable vital signs, no apparent adverse anesthesia problems. No complications reported per nursing. KALANI ROSEN DO Dec 15, 2022 13:38
--- NOTE | 2022-12-15 18:58 | OPERATIVE REPORT ---
DATE OF SERVICE: 12/15/2022 PREOPERATIVE DIAGNOSIS: History of polyps. POSTOPERATIVE DIAGNOSES: Poor prep, internal hemorrhoid versus small neoplasm at the anus. PROCEDURE: Flexible sigmoidoscopy. SURGEON: Justyna Cowan DO ANESTHESIA: Per MDA. ESTIMATED BLOOD LOSS: None. COMPLICATIONS: None. INDICATIONS: The patient is an 82-year-old female with history of polyps. She understands risks and benefits of procedure and wished to proceed. Consent was signed in chart. DESCRIPTION OF PROCEDURE: The patient was taken to the endoscopy suite, placed in left lateral recumbent position. Timeout was performed. Digital rectal exam was performed, noting what feels to be an internal hemorrhoid, right anterior, beefy red appearance. No other palpable polyps, masses or ulcerations. Scope was inserted in the rectum, advanced through the rectum, encountering some stool, up into the sigmoid colon, also got to a point where encountering a lot of stool. Therefore, not making it able to proceed, despite using irrigation and suction. Scope was then slowly retracted back. No polyps, masses or ulcerations visualized within the sigmoid, and as the scope was being retracted back, none was seen in the rectum. As the scope was being retracted through the anus, again visualizing this area, beefy red tissue that could be internal hemorrhoid versus small neoplasm. RECOMMENDATIONS: I would recommend completing prep and then also discussed doing excision of this area of the internal hemorrhoid versus a small neoplasm. We will discuss with her in 2 weeks and determine what she would like to do. Job ID: [id number] DocumentID: [id number] Dictated Date: 12/15/2022 10:58:33 Information Resources Director Date: 12/15/2022 18:55:00 Dictated By: JUSTYNA COWAN DO
== END 2022-12-15 11:50 | disposition home or self-care (01) ==
LOC: ENDO 09:28
PROVIDERS: ATTEND Surgery
DX: Z12.11 Encounter for screening for malignant neoplasm of colon (principal); Z86.010 Personal history of colon polyps
CPT/HCPCS: G0104

== ENCOUNTER 2023-01-06 08:59 | Outpatient (CLI) | payer MEDICARE ==
[~2023-01-06] VITALS: Wt 45.4 kg
[2023-01-06] MEDS ORDERED: DENOSUMAB 60 MG/1 ML (PROLIA) SQ ONE (09:30)
[2023-01-06 09:40] VITALS: BP 97/46
== END 2023-01-06 09:43 ==
LOC: SDC 08:59
PROVIDERS: ATTEND Nurse Practitioner Family
DX: M81.0 Age-related osteoporosis without current pathological fracture (principal)
CPT/HCPCS: 96372

== ENCOUNTER → 2023-01-28 | Outpatient (CLI) | payer MEDICARE ==
[~2023-01-28] VITALS: Ht 160.2 cm; Wt 45.4 kg
== END | disposition home or self-care (01) ==
LOC: PREOP 05:39
PROVIDERS: ATTEND Surgery
DX: Z01.818 Encounter for other preprocedural examination (principal)